=== PATIENT | male | born 1985 | race Caucasian/White ===

== ENCOUNTER 2017-06-17 14:18 | Emergency (ER) | payer OTHER ==
[2017-06-17] MEDS ORDERED: Lactated Ringers 1,000 ML IV ONE ×3 (14:53→16:04)
--- NOTE | 2017-06-17 14:59 | ERPHSYRPT ---
- History of Present Illness Time Seen by Provider: 06/17/17 14:23 Source: patient, EMS Patient Subjective Stated Complaint: STATES FELT SEIZURE COMING ON WHILE IN [facility] WAITING ROOM JUST PRIOR TO ARRIVAL. HX EPILEPSY Triage Nursing Assessment: TO ROOM PER EMS COT. SKIN W/D, COLOR NORMAL, RESP EASY. PATIENT AWAKE, ALERT, ORIENTED TIMES THREE. IS DROWSY. Physician History: CC: Seizure Hx: 31 y/o patient of Dr Calderon. He has hx of seizures but has been off meds for a year. He does not want to take seizure meds. He had last seizure one month ago. 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 He went to [facility] today to sign up for anger management classes. He had a seizure in the waiting room. No memoryof it. No injury. No headache, fever, neck or back pain. He has family to drive him home. He forgot about his appt with Dr Calderon this AM. Timing/Duration: today Severity: mild, moderate Baseline/Normal Cognition: alert oriented x 3 Current Cognition: alert oriented x 3 Allergies/Adverse Reactions: No Known Drug Allergies Allergy (Verified 06/17/17 18:01) Home Medications: No Reportable Medications [No Reported Medications] 06/17/17 [History] Hx Tetanus, Diphtheria Vaccination/Date Given: Yes Hx Influenza Vaccination/Date Given: No Hx Pneumococcal Vaccination/Date Given: No - Review of Systems Constitutional: No Fever, No Chills Eyes: No Vision Changes Ears, Nose, & Throat: No Symptoms Respiratory: No Symptoms Cardiac: No Chest Pain Abdominal/Gastrointestinal: No Abdominal Pain, No Nausea, No Vomiting Genitourinary Symptoms: No Symptoms Musculoskeletal: No Back Pain, No Neck Pain, No Injury Skin: No Rash Neurological: Seizure, No Dizziness, No Focal Weakness, No Headache, No Parasthesia Psychological: Drug Abuse (THC- must have been laced with meth), No Alcohol Abuse, No Depression, No Suicidal Ideations, No Hallucinations All Other Systems: Reviewed and Negative - Past Medical History Pertinent Past Medical History: Yes Neurological History: Seizures ENT History: No Pertinent History Cardiac History: No Pertinent History Respiratory History: No Pertinent History Endocrine Medical History: No Pertinent History Musculoskeletal History: Other GI Medical History: No Pertinent History History: No Pertinent History Psycho-Social History: Anxiety, Depression Male Reproductive Disorders: No Pertinent History Other Medical History: shattered left foot in 2009, broken wrist during childhood - Past Surgical History Past Surgical History: No Neuro Surgical History: No Pertinent History Cardiac: No Pertinent History Respiratory: No Pertinent History Gastrointestinal: No Pertinent History Genitourinary: No Pertinent History Musculoskeletal: No Pertinent History Male Surgical History: No Pertinent History - Social History Smoking Status: Current every day smoker How long have you smoked: 20 Exposure to second hand smoke: No Drug Use: none Patient Lives Alone: No Significant Family History: no pertinent family hx - Nursing Vital Signs Nursing Vital Signs: Initial Vital Signs Temperature 97.7 F 06/17/17 14:28 Pulse Rate 117 H 06/17/17 14:28 Respiratory Rate 18 06/17/17 14:28 Blood Pressure 110/70 06/17/17 14:28 O2 Sat by Pulse Oximetry 97 06/17/17 14:28 Pain Scale Pain Intensity 0 - [place] Coma Scale Best Eye Response ([place]): (4) open spontaneously Best Verbal Response ([place]): (5) oriented Best Motor Response ([place]): (6) obeys commands [place] Total: 15 - Physical Exam General Appearance: alert Eye Exam: bilateral eye: PERRL, EOMI Ears, Nose, Throat Exam: normal ENT inspection, moist mucous membranes Neck Exam: normal inspection, non-tender, supple, No meningismus, No midline tenderness Respiratory: normal breath sounds, lungs clear, No chest tenderness Cardiovascular: regular rate/rhythm Gastrointestinal: soft, No tenderness, No distention Male Genitalia: normal genitalia Back Exam: normal inspection, normal range of motion, No vertebral tenderness Extremity Exam: normal inspection, normal range of motion 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 - Course Nursing assessment & vital signs reviewed: Yes EKG Interpreted by Me: RATE ([id number]), Sinus Rhythm, NORMAL AXIS, NORMAL INTERVALS, NORMAL QRS, NORMAL ST-T - Radiology Exams cxr X-ray Interpretation: Teleradiologist Report, Negative Ordered Tests: Active Orders 24 hr Category Date Time Status Pbx Repairer STAT Care 06/17/17 15:39 Active Clean Catch Urine Specimen STAT Care 06/17/17 14:53 Active EKG-ER Only STAT Care 06/17/17 15:39 Active IV Insertion STAT Care 06/17/17 14:53 Active Pulse Oximetry (ED) STAT Care 06/17/17 15:39 Active Regular Diet Diet 06/17/17 Dinner Active CHEST 1 VIEW (PORTABLE) Stat Exams 06/17/17 15:39 Completed ACETAMINOPHEN Stat Lab 06/17/17 14:30 Completed CBC W DIFF Stat Lab 06/17/17 14:30 Completed CK-Creatinine Phosphokinase Stat Lab 06/17/17 14:30 Completed CMP Stat Lab 06/17/17 14:30 Completed CULTURE,URINE Stat Lab 06/17/17 15:30 Received ETHYL ALCOHOL Stat Lab 06/17/17 14:30 Completed Lactic Acid Stat Lab 06/17/17 15:30 Completed Lactic Acid Stat Lab 06/17/17 17:52 Ordered PROTIME WITH INR Stat Lab 06/17/17 14:30 Completed SALICYLATE Stat Lab 06/17/17 14:30 Completed UA W/ MICROSCOPIC Stat Lab 06/17/17 15:30 Completed Urine Triage Profile Stat Lab 06/17/17 15:30 Completed VENOUS BLOOD GAS Stat Lab 06/17/17 16:50 Completed VENOUS BLOOD GAS Urgent Lab 06/17/17 15:33 Completed Medication Summary Generic Name Dose Route Start Last Admin Trade Name Freq PRN Reason Stop Dose Admin Lactated Ringer's 1,000 mls @ 500 mls/hr 06/17/17 16:30 06/17/17 16:06 Lactated Ringers IV 07/17/17 16:29 500 mls/hr .Q2H NOHEMI Administration Discontinued Medications Generic Name Dose Route Start Last Admin Trade Name Freq PRN Reason Stop Dose Admin Lactated Ringer's 1,000 mls @ 999 mls/hr 06/17/17 14:53 06/17/17 15:10 Lactated Ringers IV 06/17/17 15:53 999 mls/hr .Q1H1M ONE Administration Lactated Ringer's Confirm 06/17/17 15:01 Lactated Ringers Administered 06/17/17 15:02 Dose 1,000 mls @ ud IV .STK-MED ONE Sodium Chloride 1,000 mls @ 999 mls/hr 06/17/17 15:39 06/17/17 15:53 Sodium Chloride 0.9% 1000 Ml IV 06/17/17 16:39 999 mls/hr .Q1H1M STA Administration Sodium Chloride Confirm 06/17/17 15:50 Sodium Chloride 0.9% 1000 Ml Administered 06/17/17 15:51 Dose 1,000 mls @ ud .ROUTE .STK-MED ONE Lab/Rad Data: Laboratory Result Diagrams 06/17/17 14:30 06/17/17 14:30 Laboratory Results 06/17/17 06/17/17 06/17/17 Range/Units 16:50 15:33 15:30 WBC (4.0-10.5) K/mm3 RBC (4.1-5.6) M/mm3 Hgb (12.5-18.0) gm/dl Hct (42-50) % MCV (78-100) fl MCH (26-32) pg MCHC (32-36) g/dl RDW (11.5-14.0) % Plt Count (150-450) K/mm3 MPV (6-9.5) fl Gran % (36.0-66.0) % Lymphocytes % (24.0-44.0) % Monocytes % (0.0-12.0) % Eosinophils % (0.00-5.0) % Basophils % (0.0-0.4) % Basophils # (0-0.4) INR (0.8-3.0) VBG pH 7.38 7.08 L* (7.32-7.42) VBG pCO2 at Pat Temp 39 L 41 L (42-55) mm/Hg VBG pO2 at Pat Temp 100 H 76 H (25-40) mm/Hg VBG HCO3 23.1 12.2 L* (22-28) meq/L VBG O2 Sat (Estefani) 98.4 94.0 L (95-100) VBG Base Excess -1.8 -17.4 L (-2.0-2.0) VBG Hemoglobin 13.8 16.2 VBG Carboxyhemoglobin 3.9 5.4 (0.0-6.9) % T HGB POC Potassium 3.6 4.4 (3.5-5.1) Sodium (136-145) mEq/L Potassium (3.5-5.1) mEq/L Chloride (98-107) mEq/L Carbon Dioxide (21-32) mEq/L Anion Gap (5-15) MEQ/L BUN (9-20) mg/dL Creatinine (0.55-1.30) mg/dl Estimated GFR ML/MIN Glucose (70-110) MG/DL Lactic Acid 15.8 H (0.4-2.0) Calcium (8.5-10.1) mg/dL Total Bilirubin (0.2-1.0) mg/dL AST (15-37) U/L ALT (12-78) U/L Alkaline Phosphatase (46-116) U/L Creatine Kinase (39-308) U/L Serum Total Protein (6.4-8.2) gm/dL Albumin (3.4-5.0) g/dL Ur Collection Type Urine Color (YELLOW) Urine Appearance (CLEAR) Urine pH (5-6) Ur Specific [place] (1.005-1.025) Urine Protein (Negative) Urine Ketones (NEGATIVE) Urine Blood (0-5) Branden/ul Urine Nitrite (NEGATIVE) Urine Bilirubin (NEGATIVE) Urine Urobilinogen (0-1) mg/dL Ur Leukocyte Esterase (NEGATIVE) Urine Microscopic RBC (0-2) /HPF Urine Microscopic WBC (0-5) /HPF Ur Epithelial Cells (FEW) /HPF Urine Bacteria (NEGATIVE) /HPF Hyaline Casts (0-2) /LPF Urine Culture Reflexed (NO) Urine Glucose (NEGATIVE) mg/dL Salicylates (2.8-20.0) mg/dl Urine Opiates Level (NEGATIVE) Ur Methadone (NEGATIVE) Acetaminophen (10-30) ug/ml Urine Barbiturates (NEGATIVE) Ur Phencyclidine (PCP) (NEGATIVE) Urine Amphetamine (NEGATIVE) U Benzodiazepine Level (NEGATIVE) Urine Cocaine (NEGATIVE) Urine Marijuana (THC) (NEGATIVE) Ethyl Alcohol (0.00-0.01) % Specimen Received 06/17/17 06/17/17 06/17/17 Range/Units 15:30 15:30 14:30 WBC (4.0-10.5) K/mm3 RBC (4.1-5.6) M/mm3 Hgb (12.5-18.0) gm/dl Hct (42-50) % MCV (78-100) fl MCH (26-32) pg MCHC (32-36) g/dl RDW (11.5-14.0) % Plt Count (150-450) K/mm3 MPV (6-9.5) fl Gran % (36.0-66.0) % Lymphocytes % (24.0-44.0) % Monocytes % (0.0-12.0) % Eosinophils % (0.00-5.0) % Basophils % (0.0-0.4) % Basophils # (0-0.4) INR 1.12 (0.8-3.0) VBG pH (7.32-7.42) VBG pCO2 at Pat Temp (42-55) mm/Hg VBG pO2 at Pat Temp (25-40) mm/Hg VBG HCO3 (22-28) meq/L VBG O2 Sat (Estefani) (95-100) VBG Base Excess (-2.0-2.0) VBG Hemoglobin VBG Carboxyhemoglobin (0.0-6.9) % T HGB POC Potassium (3.5-5.1) Sodium (136-145) mEq/L Potassium (3.5-5.1) mEq/L Chloride (98-107) mEq/L Carbon Dioxide (21-32) mEq/L Anion Gap (5-15) MEQ/L BUN (9-20) mg/dL Creatinine (0.55-1.30) mg/dl Estimated GFR ML/MIN Glucose (70-110) MG/DL Lactic Acid (0.4-2.0) Calcium (8.5-10.1) mg/dL Total Bilirubin (0.2-1.0) mg/dL AST (15-37) U/L ALT (12-78) U/L Alkaline Phosphatase (46-116) U/L Creatine Kinase (39-308) U/L Serum Total Protein (6.4-8.2) gm/dL Albumin (3.4-5.0) g/dL Ur Collection Type CLEAN CATCH Urine Color YELLOW (YELLOW) Urine Appearance CLEAR (CLEAR) Urine pH 5.0 (5-6) Ur Specific [place] 1.020 (1.005-1.025) Urine Protein 30 (Negative) Urine Ketones TRACE (NEGATIVE) Urine Blood TRACE NON-HEM (0-5) Branden/ul Urine Nitrite NEGATIVE (NEGATIVE) Urine Bilirubin NEGATIVE (NEGATIVE) Urine Urobilinogen NORMAL (0-1) mg/dL Ur Leukocyte Esterase NEGATIVE (NEGATIVE) Urine Microscopic RBC 2-5 (0-2) /HPF Urine Microscopic WBC 0-2 (0-5) /HPF Ur Epithelial Cells RARE (FEW) /HPF Urine Bacteria RARE (NEGATIVE) /HPF Hyaline Casts 2-5 (0-2) /LPF Urine Culture Reflexed YES (NO) Urine Glucose NEGATIVE (NEGATIVE) mg/dL Salicylates (2.8-20.0) mg/dl Urine Opiates Level NEG. (NEGATIVE) Ur Methadone NEG. (NEGATIVE) Acetaminophen (10-30) ug/ml Urine Barbiturates NEG. (NEGATIVE) Ur Phencyclidine (PCP) NEG. (NEGATIVE) Urine Amphetamine POS. (NEGATIVE) U Benzodiazepine Level NEG. (NEGATIVE) Urine Cocaine NEG. (NEGATIVE) Urine Marijuana (THC) POS. (NEGATIVE) Ethyl Alcohol (0.00-0.01) % Specimen Received [id number] 06/17/17 06/17/17 06/17/17 Range/Units 14:30 14:30 14:30 WBC (4.0-10.5) K/mm3 RBC (4.1-5.6) M/mm3 Hgb (12.5-18.0) gm/dl Hct (42-50) % MCV (78-100) fl MCH (26-32) pg MCHC (32-36) g/dl RDW (11.5-14.0) % Plt Count (150-450) K/mm3 MPV (6-9.5) fl Gran % (36.0-66.0) % Lymphocytes % (24.0-44.0) % Monocytes % (0.0-12.0) % Eosinophils % (0.00-5.0) % Basophils % (0.0-0.4) % Basophils # (0-0.4) INR (0.8-3.0) VBG pH (7.32-7.42) VBG pCO2 at Pat Temp (42-55) mm/Hg VBG pO2 at Pat Temp (25-40) mm/Hg VBG HCO3 (22-28) meq/L VBG O2 Sat (Estefani) (95-100) VBG Base Excess (-2.0-2.0) VBG Hemoglobin VBG Carboxyhemoglobin (0.0-6.9) % T HGB POC Potassium (3.5-5.1) Sodium 138 (136-145) mEq/L Potassium 3.8 (3.5-5.1) mEq/L Chloride 99 (98-107) mEq/L Carbon Dioxide 12.9 L* (21-32) mEq/L Anion Gap 29.6 H (5-15) MEQ/L BUN 8 L (9-20) mg/dL Creatinine 1.40 H (0.55-1.30) mg/dl Estimated GFR > 60 ML/MIN Glucose 116 H (70-110) MG/DL Lactic Acid (0.4-2.0) Calcium 9.3 (8.5-10.1) mg/dL Total Bilirubin 0.60 (0.2-1.0) mg/dL AST 31 (15-37) U/L ALT 28 (12-78) U/L Alkaline Phosphatase 115 (46-116) U/L Creatine Kinase 314 H (39-308) U/L Serum Total Protein 8.4 H (6.4-8.2) gm/dL Albumin 4.5 (3.4-5.0) g/dL Ur Collection Type Urine Color (YELLOW) Urine Appearance (CLEAR) Urine pH (5-6) Ur Specific [place] (1.005-1.025) Urine Protein (Negative) Urine Ketones (NEGATIVE) Urine Blood (0-5) Branden/ul Urine Nitrite (NEGATIVE) Urine Bilirubin (NEGATIVE) Urine Urobilinogen (0-1) mg/dL Ur Leukocyte Esterase (NEGATIVE) Urine Microscopic RBC (0-2) /HPF Urine Microscopic WBC (0-5) /HPF Ur Epithelial Cells (FEW) /HPF Urine Bacteria (NEGATIVE) /HPF Hyaline Casts (0-2) /LPF Urine Culture Reflexed (NO) Urine Glucose (NEGATIVE) mg/dL Salicylates 3.1 (2.8-20.0) mg/dl Urine Opiates Level (NEGATIVE) Ur Methadone (NEGATIVE) Acetaminophen < 2.0 L (10-30) ug/ml Urine Barbiturates (NEGATIVE) Ur Phencyclidine (PCP) (NEGATIVE) Urine Amphetamine (NEGATIVE) U Benzodiazepine Level (NEGATIVE) Urine Cocaine (NEGATIVE) Urine Marijuana (THC) (NEGATIVE) Ethyl Alcohol < 0.010 (0.00-0.01) % Specimen Received 06/17/17 Range/Units 14:30 WBC 12.6 H (4.0-10.5) K/mm3 RBC 5.22 (4.1-5.6) M/mm3 Hgb 15.1 (12.5-18.0) gm/dl Hct 47.1 (42-50) % MCV 90.2 (78-100) fl MCH 28.9 (26-32) pg MCHC 32.1 (32-36) g/dl RDW 13.0 (11.5-14.0) % Plt Count 238 (150-450) K/mm3 MPV 12.6 H (6-9.5) fl Gran % 55.1 (36.0-66.0) % Lymphocytes % 28.9 (24.0-44.0) % Monocytes % 9.5 (0.0-12.0) % Eosinophils % 6.0 H (0.00-5.0) % Basophils % 0.5 (0.0-0.4) % Basophils # 0.06 (0-0.4) INR (0.8-3.0) VBG pH (7.32-7.42) VBG pCO2 at Pat Temp (42-55) mm/Hg VBG pO2 at Pat Temp (25-40) mm/Hg VBG HCO3 (22-28) meq/L VBG O2 Sat (Estefani) (95-100) VBG Base Excess (-2.0-2.0) VBG Hemoglobin VBG Carboxyhemoglobin (0.0-6.9) % T HGB POC Potassium (3.5-5.1) Sodium (136-145) mEq/L Potassium (3.5-5.1) mEq/L Chloride (98-107) mEq/L Carbon Dioxide (21-32) mEq/L Anion Gap (5-15) MEQ/L BUN (9-20) mg/dL Creatinine (0.55-1.30) mg/dl Estimated GFR ML/MIN Glucose (70-110) MG/DL Lactic Acid (0.4-2.0) Calcium (8.5-10.1) mg/dL Total Bilirubin (0.2-1.0) mg/dL AST (15-37) U/L ALT (12-78) U/L Alkaline Phosphatase (46-116) U/L Creatine Kinase (39-308) U/L Serum Total Protein (6.4-8.2) gm/dL Albumin (3.4-5.0) g/dL Ur Collection Type Urine Color (YELLOW) Urine Appearance (CLEAR) Urine pH (5-6) Ur Specific [place] (1.005-1.025) Urine Protein (Negative) Urine Ketones (NEGATIVE) Urine Blood (0-5) Branden/ul Urine Nitrite (NEGATIVE) Urine Bilirubin (NEGATIVE) Urine Urobilinogen (0-1) mg/dL Ur Leukocyte Esterase (NEGATIVE) Urine Microscopic RBC (0-2) /HPF Urine Microscopic WBC (0-5) /HPF Ur Epithelial Cells (FEW) /HPF Urine Bacteria (NEGATIVE) /HPF Hyaline Casts (0-2) /LPF Urine Culture Reflexed (NO) Urine Glucose (NEGATIVE) mg/dL Salicylates (2.8-20.0) mg/dl Urine Opiates Level (NEGATIVE) Ur Methadone (NEGATIVE) Acetaminophen (10-30) ug/ml Urine Barbiturates (NEGATIVE) Ur Phencyclidine (PCP) (NEGATIVE) Urine Amphetamine (NEGATIVE) U Benzodiazepine Level (NEGATIVE) Urine Cocaine (NEGATIVE) Urine Marijuana (THC) (NEGATIVE) Ethyl Alcohol (0.00-0.01) % Specimen Received - Progress Progress Note: 06/17/17 18:13 He takes no meds. Neurologically normal and has appeared well since here. No longer tachycardic. Has cleared acidosis. He does not want to have Rx for seizure meds. He will follow up with Dr Calderon. Mother here. Instr given. He ate a meal. Counseled pt/family regarding: lab results, diagnosis, need for follow-up - Departure Time of Disposition: 18:14 Departure Disposition: Home Clinical Impression: Seizure, Lactic acidosis, Polysubstance abuse Condition: Fair Critical Care Time: No Referrals: ZAHEER CALDERON [Primary Care Provider] - Instructions: Seizure Disorder -- Adult Additional Instructions: No driving, climbing to heights, swimming. Stay with family. Return for problems or concerns. Avoid drug use. Follow up this week with [facility] and Dr Calderon.
[2017-06-17 15:05] LABS: BASOPHIL % 0.5 % (0.0-0.4); Basophil (Absolute #) 0.06 (0-0.4); Eosinophil (Absolute #) 0.76 (0-0.5); Granulocyte Absolute (ANC) 6.93 (1.4-6.9); Granulocytes % 55.1 % (36.0-66.0); Hematocrit 47.1 % (42-50); Hemoglobin 15.1 gm/dl (12.5-18.0); Lymphocyte (Absolute #) 3.63 (1.0-4.6); Lymphocytes % 28.9 % (24.0-44.0); Mean Cell Volume 90.2 fl (78-100); Mean Corpuscular Hemoglobin 28.9 pg (26-32); Mean Corpuscular Hgb Concent. 32.1 g/dl (32-36); Mean Platelet Volume 12.6 fl (6-9.5); Monocytes % 9.5 % (0.0-12.0); Platelet Count 238 K/mm3 (150-450); Red Blood Count 5.22 M/mm3 (4.1-5.6); White Blood Count 12.6 K/mm3 (4.0-10.5)
[2017-06-17 15:19] LABS: ALBUMIN 4.5 g/dL (3.4-5.0); ALKALINE PHOSPHATASE 115 U/L (46-116); ANION GAP 29.6 MEQ/L (5-15); BLOOD UREA NITROGEN 8 mg/dL (9-20); CHLORIDE 99 mEq/L (98-107); Calcium 9.3 mg/dL (8.5-10.1); EST GLOMERULAR FILTRATION RATE > 60 ML/MIN; Glucose 116 MG/DL (70-110); Potassium 3.8 mEq/L (3.5-5.1); SGOT/AST 31 U/L (15-37); SGPT/ALT 28 U/L (12-78); SODIUM 138 mEq/L (136-145); Total Protein 8.4 gm/dL (6.4-8.2)
[2017-06-17 15:24] LABS: Carbon Dioxide 12.9 mEq/L (21-32)
[2017-06-17 15:36] LABS: VBG BASE EXCESS -17.4 (-2.0-2.0); VBG CARBOXYHEMOGLOBIN 5.4 % T HGB (0.0-6.9); VBG HCO3- 12.2 meq/L (22-28); VBG HEMOGLOBIN 16.2; VBG POTASSIUM 4.4 (3.5-5.1)
[2017-06-17 15:37] LABS: VBG pH 7.08 (7.32-7.42)
[2017-06-17] MEDS ORDERED: Sodium Chloride 0.9% 1000 ML 1,000 ML IV STA (15:39)
[2017-06-17 15:45] LABS: INR 1.12 (0.8-3.0)
[2017-06-17] MEDS ORDERED: Sodium Chloride 0.9% 1000 ML 1,000 ML ONE (15:50)
[2017-06-17 15:53] LABS: ETHYL ALCOHOL < 0.010 % (0.00-0.01)
[2017-06-17 15:53] LABS: Lactic Acid 15.8 (0.4-2.0)
[2017-06-17 15:55] LABS: SALICYLATE 3.1 mg/dl (2.8-20.0)
[2017-06-17 15:57] LABS: ACETAMINOPHEN < 2.0 ug/ml (10-30)
[2017-06-17 16:05] LABS: Amphetamine,Urine POS. (NEGATIVE); Barbiturate,Urine NEG. (NEGATIVE); Benzodiazepine,Urine NEG. (NEGATIVE); Cocaine,Urine NEG. (NEGATIVE); Methadone,Urine NEG. (NEGATIVE); Opiate,Urine NEG. (NEGATIVE); PCP,Urine NEG. (NEGATIVE); THC,Urine POS. (NEGATIVE)
[2017-06-17] MEDS ORDERED: Lactated Ringers 1,000 ML IV SCH (16:30)
--- NOTE | 2017-06-17 16:37 | XRAY ---
Indication: Seizure. Comparison: December 15, 2012. Portable chest again demonstrates normal heart, lungs, and bony thorax.
[2017-06-17 17:03] LABS: VBG BASE EXCESS -1.8 (-2.0-2.0); VBG CARBOXYHEMOGLOBIN 3.9 % T HGB (0.0-6.9); VBG HCO3- 23.1 meq/L (22-28); VBG HEMOGLOBIN 13.8; VBG O2 SATURATION 98.4 (95-100); VBG POTASSIUM 3.6 (3.5-5.1); VBG pH 7.38 (7.32-7.42)
[2017-06-17 18:01] LABS: Appearance CLEAR (CLEAR); Leukocyte Esterase NEGATIVE (NEGATIVE); Nitrite NEGATIVE (NEGATIVE)
[2017-06-17 18:02] LABS: Bilirubin NEGATIVE (NEGATIVE); Glucose NEGATIVE (NEGATIVE); Ketones TRACE (NEGATIVE); Protein,Urine Dip 30 (Negative); Urobilinogen NORMAL mg/dL (0-1)
[2017-06-17 18:03] LABS: Blood TRACE NON-HEM Ery/ul (0-5); WBC 0-2 /HPF (0-5)
[2017-06-17 18:04] LABS: Bacteria RARE /HPF (NEGATIVE); Epithelial Cells RARE /HPF (FEW)
[2017-06-17 18:15] VITALS: BP 119/74; PULSE 77
[2017-06-17 18:16] VITALS: O2SAT 97
== END 2017-06-17 18:29 | disposition home or self-care (01) ==
LOC: ED 14:18
DX: R56.9 Unspecified convulsions (principal); E87.2 Acidosis; F19.10 Other psychoactive substance abuse, uncomplicated
CPT/HCPCS: 36000; 36415; 71045; 80053; 80307; 81000; 82550; 82805; 83605; 85025; 85610; 87086; 93005; 93041; 96360; 96361; 99284; 99285; G0481

== ENCOUNTER 2017-12-12 08:27 | Emergency (ER) | payer OTHER ==
[2017-12-12] MEDS ORDERED: Rocephin 1000 MG INJ IM ONE (08:41)
[2017-12-12] MEDS ORDERED: TORAdol 30 mg Injection IM ONE (08:42)
[2017-12-12] MEDS ORDERED: TORAdol 30 mg Injection ONE (08:45)
[2017-12-12] MEDS ORDERED: Rocephin 1000 MG INJ ONE (08:45)
--- NOTE | 2017-12-12 08:48 | ERPHSYRPT ---
- History of Present Illness Time Seen by Provider: 12/12/17 08:38 Source: patient Exam Limitations: no limitations Patient Subjective Stated Complaint: Pt states "I have some infection in my mouth, my face hurts on the right side." Triage Nursing Assessment: Pt alert and oriented X 3, skin pwd. PT ambulates with an upright steady gait, able to speak in clear full sentences. PT has dental carries noted to upper right side of mouth. Physician History: 32-year-old white male arrives with complaint of pain in the right maxillary area 2 days he states he feels like he is swollen in the right maxillary area. States he has pain in his teeth in the right maxillary area, symptoms for 2 days. Past medical history includes seizures, anxiety, depression, left foot injury, fractured wrist Past surgical history negative Social history positive tobacco use. Timing/Duration: day(s) (2 days) Modifying Factors: Improves With: nothing Associated Symptoms: other (pain right maxillary area), No nausea, No vomiting, No abdominal pain, No shortness of breath, No heartburn, No diaphoresis, No cough, No chills, No chest pain, No fever, No headaches, No loss of appetite, No malaise, No rash, No syncope, No seizure, No weakness Allergies/Adverse Reactions: No Known Drug Allergies Allergy (Verified 06/17/17 18:01) Hx Tetanus, Diphtheria Vaccination/Date Given: Yes Hx Influenza Vaccination/Date Given: Yes Hx Pneumococcal Vaccination/Date Given: No Immunizations Up to Date: Yes - Review of Systems Constitutional: No Fever, No Chills Eyes: No Symptoms Ears, Nose, & Throat: Mouth Pain, Mouth Swelling, Other (dental pain right maxillary area), No Ear Pain, No Ear Discharge, No Hearing Changes, No Tinnitus , No Nose Pain, No Nose Congestion, No Nose Discharge, No Sinus Drainage, No Epistaxis, No Loose Teeth, No Throat Pain, No Throat Swelling, No Hoarse, No Painful Swallowing, No Snoring, No Stridor Respiratory: No Cough, No Dyspnea Cardiac: No Chest Pain, No Edema, No Syncope Abdominal/Gastrointestinal: No Abdominal Pain, No Nausea, No Vomiting, No Diarrhea Genitourinary Symptoms: No Dysuria Musculoskeletal: No Back Pain, No Neck Pain Skin: No Rash Neurological: No Dizziness, No Focal Weakness, No Sensory Changes Psychological: No Symptoms Endocrine: No Symptoms All Other Systems: Reviewed and Negative - Past Medical History Pertinent Past Medical History: Yes Neurological History: Seizures ENT History: No Pertinent History Cardiac History: No Pertinent History Respiratory History: No Pertinent History Endocrine Medical History: No Pertinent History Musculoskeletal History: Other GI Medical History: No Pertinent History History: No Pertinent History Psycho-Social History: Anxiety, Depression Male Reproductive Disorders: No Pertinent History Other Medical History: shattered left foot in 2010, broken wrist during childhood - Past Surgical History Past Surgical History: No Neuro Surgical History: No Pertinent History Cardiac: No Pertinent History Respiratory: No Pertinent History Gastrointestinal: No Pertinent History Genitourinary: No Pertinent History Musculoskeletal: No Pertinent History Male Surgical History: No Pertinent History - Social History Smoking Status: Current every day smoker How long have you smoked: years Exposure to second hand smoke: Yes Drug Use: none Patient Lives Alone: No Significant Family History: no pertinent family hx - Nursing Vital Signs Nursing Vital Signs: Initial Vital Signs Temperature 97.5 F 12/12/17 08:31 Pulse Rate 72 12/12/17 08:31 Respiratory Rate 16 12/12/17 08:31 Blood Pressure 123/79 12/12/17 08:31 O2 Sat by Pulse Oximetry 100 12/12/17 08:31 Pain Scale Pain Intensity 8 - Physical Exam General Appearance: mild distress Eye Exam: PERRL/EOMI, eyes nml inspection Ears, Nose, Throat Exam: TMs normal, pharynx normal, moist mucous membranes, other (poor dentition, mild swelling right maxillary area, tender with palpation ) Neck Exam: normal inspection, non-tender, supple, full range of motion Respiratory Exam: normal breath sounds Cardiovascular Exam: regular rate/rhythm, normal heart sounds, normal peripheral pulses Gastrointestinal/Abdomen Exam: soft, normal bowel sounds, No tenderness, No mass Back Exam: normal inspection, normal range of motion, No CVA tenderness, No vertebral tenderness Extremity Exam: normal inspection Neurologic Exam: alert, oriented x 3, 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, 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, normal mood/affect, nml cerebellar function, nml station & gait, sensation nml, No motor deficits Skin Exam: normal color, warm, dry, No rash Lymphatic Exam: No adenopathy SpO2 Interpretation: normal (100) SpO2: 100 Oxygen Delivery: Room Air - Course Nursing assessment & vital signs reviewed: Yes Ordered Tests: Medication Summary Discontinued Medications Generic Name Dose Route Start Last Admin Trade Name Shelia PRN Reason Stop Dose Admin Ceftriaxone Sodium 1,000 mg 12/12/17 08:41 12/12/17 08:49 Rocephin 1000 Mg Inj IM 12/12/17 08:42 1,000 mg STAT ONE Administration Ceftriaxone Sodium Confirm 12/12/17 08:45 Rocephin 1000 Mg Inj Administered 12/12/17 08:46 Dose 1,000 mg .ROUTE .STK-MED ONE Ketorolac Tromethamine 60 mg 12/12/17 08:42 12/12/17 08:49 Toradol 30 Mg Injection IM 12/12/17 08:43 60 mg STAT ONE Administration Ketorolac Tromethamine Confirm 12/12/17 08:45 Toradol 30 Mg Injection Administered 12/12/17 08:46 Dose 60 mg .ROUTE .STK-MED ONE - Progress Progress: improved Progress Note: 12/12/17 08:46 This is a 32-year-old white male he arrives with complaint of pain in the right maxillary area mild edema to the right maxillary area symptoms 2 days patient with poor dentition Mild edema in the right maxillary area tender with palpation right maxillary area. Will go ahead and give the patient Rocephin 1 g IM, Toradol 60 mg IM, plan home amoxicillin 500 mg 3 times a day for 10 days. Patient to take Tylenol every 4 hours or Motrin every 6 hours as needed for pain. Follow-up with his dentist. - Departure Time of Disposition: 08:47 Departure Disposition: Home Clinical Impression: Pain, dental, Dental abscess Condition: Fair Critical Care Time: No Referrals: ZAHEER CALDERON [Primary Care Provider] - Instructions: Tooth Abscess (DC), Dental Pain (DC) Additional Instructions: Return home. Cold packs to area 24-48 hours (external).. Avoid excessively hot or cold foods. Tylenol every 4 hours as needed for pain. Motrin every 6 hours as needed for pain. Follow-up with your dentist. Amoxicillin 500 mg 3 times a day for 10 days. Return for acute distress or for severe symptoms. Prescriptions: Amoxicillin 500 mg PO TID #30 capsule
[2017-12-12 08:51] VITALS: BP 124/79; PULSE 61; O2SAT 99
== END 2017-12-12 08:56 | disposition home or self-care (01) ==
LOC: ED 08:27
DX: K04.7 Periapical abscess without sinus (principal); K08.89 Other specified disorders of teeth and supporting structures
CPT/HCPCS: 96372; 99284; J0696; J1885

== ENCOUNTER 2017-12-30 08:40 | Emergency (ER) | payer OTHER ==
--- NOTE | 2017-12-30 08:56 | ERPHSYRPT ---
- History of Present Illness Time Seen by Provider: 12/30/17 08:50 Source: patient Exam Limitations: no limitations Physician History: The patient is a 32-year-old male complaining of accidentally tripping while carrying a refrigerator, dropping a refrigerator on his left great toe, and causing significant trauma to the left toe. This happened about 30 minutes ago. The toenail is partially avulsed. There is some mild bleeding. He denies numbness. He did not take any medicines for pain before coming in. His tetanus vaccination is recent. Method of Injury: direct blow Occurred: just prior to arrival Quality: sharpness, stabbing Severity of Pain-Max: moderate Severity of Pain-Current: moderate Lower Extremities Pain: 1st toe: left Modifying Factors: Improves With: nothing Associated Symptoms: none Allergies/Adverse Reactions: No Known Drug Allergies Allergy (Verified 12/30/17 08:54) Hx Tetanus, Diphtheria Vaccination/Date Given: Yes Hx Influenza Vaccination/Date Given: Yes Hx Pneumococcal Vaccination/Date Given: No - Review of Systems Constitutional: No Fever, No Chills Eyes: No Symptoms Ears, Nose, & Throat: No Symptoms Respiratory: No Cough, No Dyspnea Cardiac: No Symptoms ( infected toe with smack), No Chest Pain, No Edema, No Syncope Abdominal/Gastrointestinal: No Abdominal Pain, No Nausea, No Vomiting, No Diarrhea Genitourinary Symptoms: No Dysuria Musculoskeletal: Injury, No Back Pain, No Neck Pain Skin: No Symptoms, No Rash Neurological: No Dizziness, No Focal Weakness, No Sensory Changes Psychological: No Symptoms Endocrine: No Symptoms Hematologic/Lymphatic: No Symptoms Immunological/Allergic: No Symptoms All Other Systems: Reviewed and Negative - Past Medical History Pertinent Past Medical History: Yes Neurological History: Seizures ENT History: No Pertinent History Cardiac History: No Pertinent History Respiratory History: No Pertinent History Endocrine Medical History: No Pertinent History Musculoskeletal History: Other GI Medical History: No Pertinent History History: No Pertinent History Psycho-Social History: Anxiety, Depression Male Reproductive Disorders: No Pertinent History Other Medical History: shattered left foot in 2010, broken wrist during childhood - Past Surgical History Past Surgical History: No Neuro Surgical History: No Pertinent History Cardiac: No Pertinent History Respiratory: No Pertinent History Gastrointestinal: No Pertinent History Genitourinary: No Pertinent History Musculoskeletal: No Pertinent History Male Surgical History: No Pertinent History - Social History Smoking Status: Current every day smoker How long have you smoked: years Exposure to second hand smoke: Yes Drug Use: none Patient Lives Alone: No Significant Family History: no pertinent family hx - Nursing Vital Signs Nursing Vital Signs: Initial Vital Signs Temperature 97.0 F 12/30/17 08:45 Pulse Rate 69 12/30/17 08:45 Respiratory Rate 16 12/30/17 08:45 Blood Pressure 117/85 12/30/17 08:45 O2 Sat by Pulse Oximetry 100 12/30/17 08:45 Pain Scale Pain Intensity 10 - Physical Exam General Appearance: moderate distress, thin Eyes, Ears, Nose, Throat Exam: moist mucous membranes Neck Exam: non-tender, supple Cardiovascular/Respiratory Exam: chest non-tender, normal breath sounds, regular rate/rhythm, no respiratory distress Gastrointestinal/Abdominal Exam: non-tender, guarding Back Exam: normal inspection, No vertebral tenderness Hips Exam: bilateral: normal inspection Legs Exam: bilateral leg: normal inspection Knees Exam: bilateral knee: normal inspection Ankle Exam: bilateral ankle: normal inspection Foot Exam: left foot: nail injury (left great toe), pain, soft tissue tenderness , swelling Neuro/Tendon Exam: normal sensation, normal motor functions Mental Status Exam: alert, oriented x 3, cooperative Skin Exam: normal color, warm, dry SpO2 Interpretation: normal Oxygen Delivery: Room Air (days ago be broken or not) - Radiology Exams Left Foot X-ray Interpretation: Reviewed by me, Teleradiologist Report (per Dr Cabrera), Negative, No Fracture Ordered Tests: Active Orders 24 hr Category Date Time Status FOOT (MINIMUM 3 VIEWS) Stat Exams 12/30/17 08:54 Completed Medication Summary Discontinued Medications Generic Name Dose Route Start Last Admin Trade Name Shelia PRN Reason Stop Dose Admin Ketorolac Tromethamine 60 mg 12/30/17 08:54 12/30/17 09:12 Toradol 30 Mg Injection IM 12/30/17 08:55 60 mg STAT ONE Administration Ketorolac Tromethamine Confirm 12/30/17 09:04 Toradol 30 Mg Injection Administered 12/30/17 09:05 Dose 60 mg .ROUTE .STK-MED ONE Lidocaine HCl 10 ml 12/30/17 09:14 Xylocaine 1% Hcl 20 Ml Mdv IJ 12/30/17 09:15 STAT ONE Lidocaine HCl Confirm 12/30/17 09:18 Xylocaine 1% Hcl 20 Ml Mdv Administered 12/30/17 09:19 Dose 10 ml .ROUTE .STK-MED ONE - Progress Progress: improved Progress Note: 12/30/17 09:39 A digital block was performed on the left great toe with 10 mL of 1% lidocaine without epinephrine. The toenail was successfully removed without difficulty. Hemostasis was achieved. Toradol 60 mg IM. Counseled pt/family regarding: diagnosis, rad results - Departure Time of Disposition: :40 Departure Disposition: Home Clinical Impression: Injury of left great toe Condition: Stable Critical Care Time: No Referrals: ZAHEER CALDERON [Primary Care Provider] - Additional Instructions: You had a crush injury to your left great toe with avulsion of your toenail. You had no broken bones. The toenail was removed without difficulty in the ER. You were given Toradol 60 mg by IM in the ER. Take naproxen 500 mg twice a day if needed. Take Tylenol No. 3 one tablet every 4-6 hours as needed. Apply ice to the toe as needed. Follow-up with Dr. Granados in [place] at for further evaluation of your left ankle injury from several years ago. Prescriptions: Codeine Phosphate/APAP #3 [Tylenol #3 Tablet] 1 tab PO Q4-6HPRN PRN #6 tablet PRN Reason: Pain Naproxen 500 mg PO BID PRN #30 tablet.
[2017-12-30] MEDS ORDERED: TORAdol 30 mg Injection ONE (09:04)
[2017-12-30] MEDS: TORAdol 30 mg Injection IM ONE (09:12)
[2017-12-30] MEDS ORDERED: XYLOCAINE 1% HCL 20 ML MDV ONE (09:18)
--- NOTE | 2017-12-30 09:20 | XRAY ---
Indication: Great toe injury. Comparison: None 3 portable nonweightbearing views of the left foot demonstrates great toe soft tissue swelling. No other bony, articular, or soft tissue abnormalities.
[2017-12-30] MEDS: XYLOCAINE 1% HCL 20 ML MDV IJ ONE (09:56)
[2017-12-30 10:04] VITALS: BP 100/56; PULSE 78; O2SAT 98
== END 2017-12-30 10:05 | disposition home or self-care (01) ==
LOC: ED 08:40
DX: S97.112A Crushing injury of left great toe, initial encounter (principal); W23.0XXA Caught, crushed, jammed, or pinched between moving objects, initial encounter; F41.8 Other specified anxiety disorders; G40.909 Epilepsy, unspecified, not intractable, without status epilepticus; Z72.0 Tobacco use
CPT/HCPCS: 11730; 73630; 96372; 99284; J1885

== ENCOUNTER 2018-01-07 12:57 | Observation (INO) | payer OTHER ==
[2018-01-07] MEDS ORDERED: Sodium Chloride 0.9% 1000 ML 1,000 ML IV STA (13:09)
--- NOTE | 2018-01-07 13:15 | ERPHSYRPT ---
- History of Present Illness Time Seen by Provider: 01/07/18 13:11 Source: patient Exam Limitations: no limitations Physician History: 32-year-old white male arrives with complaint that he was found laying in the mud puddle outside of someone's house is just prior to arrival. Patient states she was just walking home from work. He denies any injuries denies feeling dizzy or remembering passing out. He has no complaints. Past medical history includes seizures, anxiety, depression. Fracture left foot also history of fracture wrist as a child. Past surgical history includes negative Timing/Duration: today Severity: moderate Modifying Factors: Improves With: nothing Associated Symptoms: syncope, No nausea, No vomiting, No abdominal pain, No shortness of breath, No heartburn, No diaphoresis, No cough, No chills, No chest pain, No fever, No headaches, No loss of appetite, No malaise, No rash, No seizure, No weakness Allergies/Adverse Reactions: No Known Drug Allergies Allergy (Verified 01/07/18 14:00) Home Medications: No Reportable Medications [No Reported Medications] 01/07/18 [History] Hx Tetanus, Diphtheria Vaccination/Date Given: Yes Hx Influenza Vaccination/Date Given: Yes Hx Pneumococcal Vaccination/Date Given: No - Review of Systems Constitutional: No Fever, No Chills Eyes: No Symptoms Ears, Nose, & Throat: No Symptoms Respiratory: No Cough, No Dyspnea Cardiac: Syncope, No Chest Pain, No Edema Abdominal/Gastrointestinal: No Abdominal Pain, No Nausea, No Vomiting, No Diarrhea Genitourinary Symptoms: No Dysuria Musculoskeletal: No Back Pain, No Neck Pain Skin: No Rash Neurological: No Dizziness, No Focal Weakness, No Gait Changes, No Headache, No Irritability, No Lethargy, No Paralysis, No Parasthesia, No Seizure, No Sensory Changes, No Speech Changes, No Tics, No Tremors, No Vertigo Psychological: No Symptoms Endocrine: No Symptoms All Other Systems: Reviewed and Negative - Past Medical History Pertinent Past Medical History: Yes Neurological History: Seizures ENT History: No Pertinent History Cardiac History: No Pertinent History Respiratory History: No Pertinent History Endocrine Medical History: No Pertinent History Musculoskeletal History: Other GI Medical History: No Pertinent History History: No Pertinent History Psycho-Social History: Anxiety, Depression Male Reproductive Disorders: No Pertinent History Other Medical History: shattered left foot in 2010, broken wrist during childhood - Past Surgical History Past Surgical History: No Neuro Surgical History: No Pertinent History Cardiac: No Pertinent History Respiratory: No Pertinent History Gastrointestinal: No Pertinent History Genitourinary: No Pertinent History Musculoskeletal: No Pertinent History Male Surgical History: No Pertinent History - Social History Smoking Status: Current every day smoker How long have you smoked: years Exposure to second hand smoke: Yes Drug Use: none Patient Lives Alone: No Significant Family History: no pertinent family hx - Nursing Vital Signs Nursing Vital Signs: Initial Vital Signs Temperature 97.6 F 01/07/18 12:59 Pulse Rate 115 H 01/07/18 12:59 Respiratory Rate 16 01/07/18 12:59 Blood Pressure 107/63 01/07/18 12:59 O2 Sat by Pulse Oximetry 99 01/07/18 12:59 Pain Scale Pain Intensity 0 - Physical Exam General Appearance: no apparent distress, alert Eye Exam: PERRL/EOMI, eyes nml inspection Ears, Nose, Throat Exam: normal ENT inspection, TMs normal, pharynx normal, moist mucous membranes Neck Exam: normal inspection, non-tender, supple, full range of motion Respiratory Exam: normal breath sounds, lungs clear, No respiratory distress Cardiovascular Exam: regular rate/rhythm, normal heart sounds, normal peripheral pulses Gastrointestinal/Abdomen Exam: soft, normal bowel sounds, No tenderness, No mass Back Exam: normal inspection, normal range of motion, No CVA tenderness, No vertebral tenderness Extremity Exam: normal inspection, normal range of motion, pelvis stable Neurologic Exam: alert, oriented x 3, cooperative, print support specialist II-XII nml as tested, normal mood/affect, nml cerebellar function, nml station & gait, sensation nml, No motor deficits Skin Exam: normal color, warm, dry, No rash SpO2 Interpretation: normal (99%) SpO2: 99 Oxygen Delivery: Room Air - Course Nursing assessment & vital signs reviewed: Yes EKG Interpreted by Me: RATE (108 bpm), Sinus Tach, NORMAL AXIS, Other (EKG sinus tachycardia with artifact. Normal axis. No acute ST or T wave changes noted.) - CT Exams Head CT Interpretation: Discussed w/radiologist (head CT: Impression: Motion and beam artifact. No gross intercranial abnormalities) Ordered Tests: Active Orders 24 hr Category Date Time Status Bedrest ROUTINE Activity 01/07/18 16:07 Active Accucheck STAT Care 01/07/18 13:09 Completed Code Status Order ROUTINE Care 01/07/18 16:07 Active EKG-ER Only STAT Care 01/07/18 13:09 Completed IV Care Q6H Care 01/07/18 16:07 Active IV Insertion STAT Care 01/07/18 13:09 Completed Neuro Checks Q4H Care 01/07/18 16:[address] in Observation ROUTINE Care 01/07/18 16:07 Active Pulse Oximetry (ED) STAT Care 01/07/18 13:09 Completed Clear Liquid Diet 01/07/18 Dinner Active HEAD WITHOUT CONTRAST [CT] Stat Exams 01/07/18 13:47 Completed CBC W DIFF AM.LAB Lab 01/08/18 04:00 Ordered CBC W DIFF Stat Lab 01/07/18 13:30 Completed CMP AM.LAB Lab 01/08/18 04:00 Ordered CMP Stat Lab 01/07/18 13:30 Completed CULTURE,URINE Stat Lab 01/07/18 13:33 Received ETHYL ALCOHOL Stat Lab 01/07/18 13:30 Completed Manual Differential NC Stat Lab 01/07/18 13:30 Completed UA W/ MICROSCOPIC Stat Lab 01/07/18 13:33 Completed Urine Triage Profile Stat Lab 01/07/18 13:33 Completed Pulse Oximetry CONTINUOUS RT 01/07/18 16:07 Active Transfer Order Routine Transfer 01/07/18 Completed Medication Summary Generic Name Dose Route Start Last Admin Trade Name Freq PRN Reason Stop Dose Admin Acetaminophen 650 mg 01/07/18 17:01 Tylenol 325 Mg PO 02/06/18 17:00 Q4H PRN PRN PAIN AND/OR FEVER Sodium Chloride 1,000 mls @ 100 mls/hr 01/07/18 16:07 Sodium Chloride 0.9% 1000 Ml IV 02/06/18 16:06 .Q10H NOHEMI Lorazepam 1 mg 01/07/18 16:07 Ativan 2 Mg/1 Ml Vial IV 02/06/18 16:06 PRN PRN SEIZURES Discontinued Medications Generic Name Dose Route Start Last Admin Trade Name Freq PRN Reason Stop Dose Admin Sodium Chloride 1,000 mls @ 999 mls/hr 01/07/18 13:09 01/07/18 14:36 Sodium Chloride 0.9% 1000 Ml IV 01/07/18 14:09 Infused .Q1H1M STA Infusion Sodium Chloride Confirm 07/31/18 13:29 Sodium Chloride 0.9% 1000 Ml Administered 01/07/18 13:30 Dose 1,000 mls @ ud .ROUTE .STK-MED ONE Fosphenytoin Sodium 1,000 mg/ 120 mls @ 120 mls/hr 01/07/18 15:15 01/07/18 15 :30 Sodium Chloride IV 01/07/18 16:14 120 mls/hr NOW ONE Administration Lorazepam 1 mg 01/07/18 13:46 01/07/18 13:55 Ativan 2 Mg/1 Ml Vial IV 01/07/18 13:47 1 mg STAT ONE Administration Lorazepam Confirm 01/07/18 13:46 Ativan 2 Mg/1 Ml Vial Administered 01/07/18 13:47 Dose 2 mg .ROUTE .STK-MED ONE Lab/Rad Data: Laboratory Result Diagrams 01/07/18 13:30 01/07/18 13:30 Laboratory Results 01/07/18 01/07/18 01/07/18 Range/Units 13:33 13:33 13:30 WBC (4.0-10.5) K/mm3 RBC (4.1-5.6) M/mm3 Hgb (12.5-18.0) gm/dl Hct (42-50) % MCV (78-100) fl MCH (26-32) pg MCHC (32-36) g/dl RDW (11.5-14.0) % Plt Count (150-450) K/mm3 MPV (6-9.5) fl Gran % (36.0-66.0) % Eos # (Auto) (0-0.5) Absolute Lymphs (auto) (1.0-4.6) Absolute Monos (auto) (0.0-1.3) Lymphocytes % (24.0-44.0) % Monocytes % (0.0-12.0) % Eosinophils % (0.00-5.0) % Basophils % (0.0-0.4) % Absolute Granulocytes (1.4-6.9) Segmented Neutrophils (36.-66.) % Band Neutrophils (0.0-2.0) % Lymphocytes (Manual) (24-44) % Monocytes (Manual) (0.0-12.0) % Eosinophils (Manual) (0.00-3.0) % Basophils # (0-0.4) Platelet Estimate (NORMAL) RBC Morphology Sodium 140 (137-145) mmol/L Potassium 4.9 (3.5-5.1) mmol/L Chloride 102 (98-107) mmol/L Carbon Dioxide 26 (22-30) mmol/L Anion Gap 16.9 H (5-15) MEQ/L BUN 11 (9-20) mg/dL Creatinine 1.10 (0.66-1.25) mg/dL Estimated GFR > 60.0 ML/MIN Glucose 122 H (74-106) mg/dL Calcium 10.0 (8.4-10.2) mg/dL Total Bilirubin 0.30 (0.2-1.3) mg/dL AST 42 (17-59) U/L ALT 50 (0-50) U/L Alkaline Phosphatase 99 (38-126) U/L Serum Total Protein 7.9 (6.3-8.2) g/dL Albumin 4.9 (3.5-5.0) g/dL Ur Collection Type VOID Urine Color YELLOW (YELLOW) Urine Appearance CLEAR (CLEAR) Urine pH 5.0 (5-6) Ur Specific [place] 1.025 (1.005-1.025) Urine Protein 100 (Negative) Urine Ketones SMALL (NEGATIVE) Urine Blood 250 (0-5) Branden/ul Urine Nitrite NEGATIVE (NEGATIVE) Urine Bilirubin NEGATIVE (NEGATIVE) Urine Urobilinogen NORMAL (0-1) mg/dL Ur Leukocyte Esterase NEGATIVE (NEGATIVE) Urine Microscopic RBC 2-5 (0-2) /HPF Urine Microscopic WBC 0-2 (0-5) /HPF Ur Epithelial Cells RARE (FEW) /HPF Urine Bacteria RARE (NEGATIVE) /HPF Hyaline Casts 0-2 (0-2) /LPF Urine Mucus SLIGHT (NEGATIVE) /HPF Urine Culture Reflexed YES (NO) Urine Glucose NEGATIVE (NEGATIVE) mg/dL Urine Opiates Level NEGATIVE (NEGATIVE) Ur Methadone NEGATIVE (NEGATIVE) Urine Barbiturates NEGATIVE (NEGATIVE) Ur Phencyclidine (PCP) NEGATIVE (NEGATIVE) Urine Amphetamine POSITIVE (NEGATIVE) U Benzodiazepine Level NEGATIVE (NEGATIVE) Urine Cocaine NEGATIVE (NEGATIVE) Urine Marijuana (THC) POSITIVE (NEGATIVE) Ethyl Alcohol < 10 (0-10) mg/dL Specimen Received 01/07/18 1330 01/07/18 Range/Units 13:30 WBC 9.7 (4.0-10.5) K/mm3 RBC 4.90 (4.1-5.6) M/mm3 Hgb 14.9 (12.5-18.0) gm/dl Hct 43.9 (42-50) % MCV 89.6 (78-100) fl MCH 30.4 (26-32) pg MCHC 33.9 (32-36) g/dl RDW 13.4 (11.5-14.0) % Plt Count 253 (150-450) K/mm3 MPV 11.7 H (6-9.5) fl Gran % 81.7 H (36.0-66.0) % Eos # (Auto) 0.13 (0-0.5) Absolute Lymphs (auto) 1.02 (1.0-4.6) Absolute Monos (auto) 0.60 (0.0-1.3) Lymphocytes % 10.5 L (24.0-44.0) % Monocytes % 6.2 (0.0-12.0) % Eosinophils % 1.3 (0.00-5.0) % Basophils % 0.3 (0.0-0.4) % Absolute Granulocytes 7.96 H (1.4-6.9) Segmented Neutrophils 81 H (36.-66.) % Band Neutrophils 2 (0.0-2.0) % Lymphocytes (Manual) 11 L (24-44) % Monocytes (Manual) 3 (0.0-12.0) % Eosinophils (Manual) 3 (0.00-3.0) % Basophils # 0.03 (0-0.4) Platelet Estimate NORMAL (NORMAL) RBC Morphology NORMAL Sodium (137-145) mmol/L Potassium (3.5-5.1) mmol/L Chloride (98-107) mmol/L Carbon Dioxide (22-30) mmol/L Anion Gap (5-15) MEQ/L BUN (9-20) mg/dL Creatinine (0.66-1.25) mg/dL Estimated GFR ML/MIN Glucose (74-106) mg/dL Calcium (8.4-10.2) mg/dL Total Bilirubin (0.2-1.3) mg/dL AST (17-59) U/L ALT (0-50) U/L Alkaline Phosphatase (38-126) U/L Serum Total Protein (6.3-8.2) g/dL Albumin (3.5-5.0) g/dL Ur Collection Type Urine Color (YELLOW) Urine Appearance (CLEAR) Urine pH (5-6) Ur Specific [place] (1.005-1.025) Urine Protein (Negative) Urine Ketones (NEGATIVE) Urine Blood (0-5) Branden/ul Urine Nitrite (NEGATIVE) Urine Bilirubin (NEGATIVE) Urine Urobilinogen (0-1) mg/dL Ur Leukocyte Esterase (NEGATIVE) Urine Microscopic RBC (0-2) /HPF Urine Microscopic WBC (0-5) /HPF Ur Epithelial Cells (FEW) /HPF Urine Bacteria (NEGATIVE) /HPF Hyaline Casts (0-2) /LPF Urine Mucus (NEGATIVE) /HPF Urine Culture Reflexed (NO) Urine Glucose (NEGATIVE) mg/dL Urine Opiates Level (NEGATIVE) Ur Methadone (NEGATIVE) Urine Barbiturates (NEGATIVE) Ur Phencyclidine (PCP) (NEGATIVE) Urine Amphetamine (NEGATIVE) U Benzodiazepine Level (NEGATIVE) Urine Cocaine (NEGATIVE) Urine Marijuana (THC) (NEGATIVE) Ethyl Alcohol (0-10) mg/dL Specimen Received - Progress Progress: improved Progress Note: 01/07/18 13:14 32-year-old white male brought by medics with complaint that he was found laying in the ditch. Patient really denies any complaints at this time cannot remember syncopal episode. Currently alert oriented 3 neurological exam within normal limits lungs heart regular full range of motion to all extremities senior medical technologist are equal 5 over 5 sensation intact to all extremities GCS is 15. Will go ahead and check EKG labs UA UDS Accu-Chek. Will give patient a liter of normal saline. 01/07/18 13:48 Notified by patient's nurse that patient is having a seizure. Patient with a body tensed up, head turned to the right. Patient given Ativan [address] is ordered in view of patient having probable initial seizure leading to syncope and second seizure here in the emergency room. 01/07/18 15:13 The patient's urine drug screen positive for amphetamines and marijuana. Patient apparently has not been on Dilantin for a year I've discussed the patient's case with Dr. kraus the patient's family physician. She would like the patient started on Dilantin I contacted pharmacy to ask the appropriate dose of cerebrex to begin this he will get 1 g of cerebrexIV. Will ask the nurses to obtain a bed for many place patient on seizure precautions provide IV normal saline. Dr. Kraus will write for continuing dosage of Dilantin. - Departure Time of Disposition: 15:15 Departure Disposition: Observation Clinical Impression: Seizure, Polysubstance abuse Syncope Qualifiers: Syncope type: unspecified Qualified Code(s): R55 - Syncope and collapse Condition: Fair Critical Care Time: No
[2018-01-07] MEDS ORDERED: Sodium Chloride 0.9% 1000 ML 1,000 ML ONE (13:29)
[2018-01-07 13:45] LABS: Appearance CLEAR (CLEAR); Bilirubin NEGATIVE (NEGATIVE); Blood 250 Ery/ul (0-5); Glucose NEGATIVE (NEGATIVE); Ketones SMALL (NEGATIVE); Leukocyte Esterase NEGATIVE (NEGATIVE); Nitrite NEGATIVE (NEGATIVE); Protein,Urine Dip 100 (Negative); Specific Gravity 1.025 (1.005-1.025); Urobilinogen NORMAL mg/dL (0-1)
[2018-01-07] MEDS ORDERED: Ativan 2 MG/1 ML VIAL ONE (13:46)
[2018-01-07] MEDS ORDERED: Ativan 2 MG/1 ML VIAL IV ONE (13:46)
[2018-01-07 13:55] LABS: BASOPHIL % 0.3 % (0.0-0.4); Basophil (Absolute #) 0.03 (0-0.4); Eosinophil % 1.3 % (0.00-5.0); Eosinophil (Absolute #) 0.13 (0-0.5); Granulocyte Absolute (ANC) 7.96 (1.4-6.9); Granulocytes % 81.7 % (36.0-66.0); Hematocrit 43.9 % (42-50); Hemoglobin 14.9 gm/dl (12.5-18.0); Lymphocyte (Absolute #) 1.02 (1.0-4.6); Lymphocytes % 10.5 % (24.0-44.0); Mean Cell Volume 89.6 fl (78-100); Mean Corpuscular Hemoglobin 30.4 pg (26-32); Mean Corpuscular Hgb Concent. 33.9 g/dl (32-36); Mean Platelet Volume 11.7 fl (6-9.5); Monocytes % 6.2 % (0.0-12.0); Platelet Count 253 K/mm3 (150-450); Red Cell Distribution Width 13.4 % (11.5-14.0); White Blood Count 9.7 K/mm3 (4.0-10.5)
[2018-01-07 13:58] LABS: Barbiturate,Urine NEGATIVE (NEGATIVE); Benzodiazepine,Urine NEGATIVE (NEGATIVE); Cocaine,Urine NEGATIVE (NEGATIVE); Methadone,Urine NEGATIVE (NEGATIVE); Opiate,Urine NEGATIVE (NEGATIVE); PCP,Urine NEGATIVE (NEGATIVE); THC,Urine POSITIVE (NEGATIVE)
[2018-01-07 14:00] LABS: Bacteria RARE /HPF (NEGATIVE); Epithelial Cells RARE /HPF (FEW); Hyaline Casts 0-2 /LPF (0-2); Mucus SLIGHT /HPF (NEGATIVE); WBC 0-2 /HPF (0-5)
[2018-01-07 14:06] LABS: ALBUMIN 4.9 g/dL (3.5-5.0); ALKALINE PHOSPHATASE 99 U/L (38-126); ANION GAP 16.9 MEQ/L (5-15); BLOOD UREA NITROGEN 11 mg/dL (9-20); CHLORIDE 102 mmol/L (98-107); Carbon Dioxide 26 mmol/L (22-30); ETHYL ALCOHOL < 10 mg/dL (0-10); Glucose 122 mg/dL (74-106); Potassium 4.9 mmol/L (3.5-5.1); SGOT/AST 42 U/L (17-59); SGPT/ALT 50 U/L (0-50); SODIUM 140 mmol/L (137-145); Total Protein 7.9 g/dL (6.3-8.2)
--- NOTE | 2018-01-07 14:44 | XRAY ---
Indication: Seizure and syncope. Multiple contiguous axial images obtained through the head without contrast. Comparison: December 09, 2014. Patient's head was secured manually due to patient motion which explains the mild motion artifact and beam artifact especially near the base of the brain. No gross acute intracranial hemorrhage, abnormal extra-axial fluid collection, or mass effect. Fourth ventricle is midline without hydrocephalus. Hardy-white matter differentiation preserved. Bony calvarium grossly intact. Visualized paranasal sinuses and mastoid air cells are grossly clear. Impression: Motion and beam artifact. No gross acute intracranial abnormalities. CTDI 62.53
[2018-01-07 15:01] LABS: Amphetamine,Urine POSITIVE (NEGATIVE)
[2018-01-07] MEDS ORDERED: SODIUM CHLORIDE 0.9% IV ONE (15:15)
[2018-01-07] MEDS ORDERED: FOSPHENYTOIN SODIUM IV ONE (15:15)
[2018-01-07 15:26] LABS: BAND 2 % (0.0-2.0); Eosinophil 3 % (0.00-3.0); Lymphocytes 11 % (24-44); Monocyte 3 % (0.0-12.0); Neutrophils 81 % (36.-66.); Platelet Estimate NORMAL (NORMAL); Total Cells Counted 100
[2018-01-07] MEDS ORDERED: Sodium Chloride 0.9% 1000 ML 1,000 ML IV SCH (16:07)
[2018-01-07] MEDS ORDERED: Ativan 2 MG/1 ML VIAL IV PRN (16:07)
[2018-01-07] MEDS ORDERED: TYLENOL 325 MG PO PRN (17:01)
[2018-01-08 05:57] LABS: ALBUMIN 3.8 g/dL (3.5-5.0); ALKALINE PHOSPHATASE 80 U/L (38-126); BLOOD UREA NITROGEN 11 mg/dL (9-20); CHLORIDE 105 mmol/L (98-107); Calcium 8.5 mg/dL (8.4-10.2); Carbon Dioxide 25 mmol/L (22-30); Creatinine 1 0.88 mg/dL (0.66-1.25); Glucose 84 mg/dL (74-106); Potassium 3.8 mmol/L (3.5-5.1); SGOT/AST 48 U/L (17-59); SGPT/ALT 42 U/L (0-50); SODIUM 139 mmol/L (137-145); Total Protein 6.4 g/dL (6.3-8.2)
[2018-01-08 06:00] LABS: Granulocyte Absolute (ANC) 5.36 (1.4-6.9); Hematocrit 41.8 % (42-50); Hemoglobin 13.8 gm/dl (12.5-18.0); Mean Cell Volume 91.1 fl (78-100); Mean Corpuscular Hemoglobin 30.1 pg (26-32); Platelet Count 206 K/mm3 (150-450); Red Blood Count 4.59 M/mm3 (4.1-5.6); Red Cell Distribution Width 13.6 % (11.5-14.0); White Blood Count 9.4 K/mm3 (4.0-10.5)
[2018-01-08 06:33] LABS: Lymphocytes 38 % (24-44); Monocyte 6 % (0.0-12.0); Neutrophils 56 % (36.-66.); Platelet Estimate NORMAL (NORMAL); Total Cells Counted 100
[2018-01-08 07:07] VITALS: BP 98/67; PULSE 76; O2SAT 98
--- NOTE | 2018-01-08 08:08 | HP ---
HISTORY OF PRESENT ILLNESS: This is a 32 year-old patient who was brought into the emergency room by EMS after being found in a ditch. The patient has a long history of seizure disorder. His mother is at the bedside and reports that he has been out of his seizure medicines because he has not had any insurance. The patient had a seizure in the emergency room and was given Ativan. Please see the emergency room physician's note for details on this. He is groggy now. He will say that he is at a hospital, what city we are in and what year it is. When the nurse asked him and then I asked him his name he did not answer. His mom states that he has not had any fevers, nausea or vomiting that she knows of. She reports that he does smoke cigarettes. He does not do any illicit drugs that she knows of. She reports that he lives with her and works at a [employer]. He injured his left big toe at the [employer] and has a bandage over this otherwise no injuries that they know of. They say that the toenail was pulled off. She reports that his boss at the [employer] he has been more spacey lately. REVIEW OF SYSTEMS: As above in the history of present illness otherwise unobtainable as the patient is still sleepy from the Ativan. PAST MEDICAL HISTORY: Seizure disorder, history of bipolar disorder, schizophrenia, history of fractured left ankle and chronic left ankle pain. History of acute renal failure that resolved. MEDICATIONS: None. ALLERGIES: NKDA. SOCIAL HISTORY: He lives at his mother's house. He smokes tobacco. His mother states he does not drink. He had urine tox that was positive for meth and THC back on 12/15/2017. Today, when asked about illicit drug use he does not answer those questions. PHYSICAL EXAMINATION: VITAL SIGNS: Temperature current 97.6F, temperature max 97.6F, heart rate 87 to 118, respiratory rate 16 to 18, blood pressure 107 to 118 over 51 to 63, weight 63.5 kg. Oxygen saturation 99 to 100% on room air. GENERAL: The patient is lying in bed sleeping but arousable and will answer questions for the nurse in my presence. No acute distress. CVS: He has a regular rate and rhythm. No murmurs, gallops or rubs are appreciated. CHEST: Clear to auscultation bilaterally. No crackles or wheezes. ABDOMEN: Soft, nontender, nondistended with normal bowel sounds. EXTREMITIES: No clubbing, cyanosis or edema. His right big toenail has an injury to this with some very mild erythema, no induration, no drainage. SKIN: Warm, dry and intact. LABORATORY DATA AND TESTS: Urine tox was positive for meth and THC. CBC white blood cell count was normal. Hemoglobin and PLT count normal. Glucose 122. Liver function tests normal. UA with small ketones, 250 blood, 2 to [address] without any acute cranial abnormalities. Please see the radiologist dictation for the full report. ASSESSMENT AND PLAN: 1) SEIZURE WITH HISTORY OF EPILEPSY: He was loaded with fosphenytoin 1,000 mg. He also received 1 mg of Ativan at 1355. Will continue his Ativan as needed for seizures. Will plan to restart his Dilantin tomorrow. Will ask for a discharge planning consult as his mother states he does not have insurance and that is why he was not taking his medications. 2) POLYSUBSTANCE ABUSE: The patient did nod his head "Yes" that he wanted to quit using these substances and shaking his head "No" when I asked if he wanted to have a [facility] consult regarding this.
[2018-01-08] MEDS ORDERED: Dilantin 100 MG PO SCH ×2 (10:00→22:00)
--- NOTE | 2018-01-10 09:15 | DS ---
DISCHARGE DIAGNOSES: 1) SEIZURE DISORDER. 2) POLYSUBSTANCE ABUSE. DISCHARGE PHYSICAL EXAMINATION: VITALS: Temperature current 98.6F, temperature max 98.6F, heart rate 66 to 83, respiratory rate 18 to 24, blood pressure 89 to 98 over 51 to 67 currently 98/67. Oxygen saturation 98 to 100%. GENERAL: The patient is a pleasant talkative man alert and oriented and in no acute distress. CVS: He has a regular rate and rhythm. No murmurs, gallops or rubs. CHEST: Clear to auscultation bilaterally. No crackles or wheezes. ABDOMEN: Soft, nontender, nondistended with normal bowel sounds. EXTREMITIES: No clubbing, cyanosis or edema. SKIN: Warm, dry and intact. He has a bandage over his left toe. NEURO: Cranial nerves II - XII are intact. Strength is 5/5 in all four extremities. Normal finger to nose and heel to chu bilaterally. ASSESSMENT AND PLAN: 1) History of epilepsy with seizure: The patient was loaded with fosphenytoin 1 gm yesterday IV, will restart his home dose of phenytoin 100 mg capsule two capsules in the a.m. and one capsule in the p.m. and plan to have him follow up with me in the clinic. Usually when he takes his medicine or does not use illicit drugs his seizures are well controlled on this. 2) Polysubstance abuse: This was discussed at length with the patient. He reports he wants to try to quit. I offered [facility] consultation and he declined this. DISPOSITION: The patient was discharged to home in good condition to resume the phenytoin as above and follow up with me in the clinic.
== END 2018-01-08 09:30 | disposition home or self-care (01) ==
LOC: ED 12:57 → MED SURG 15:51
PROVIDERS: ADMIT Internal Medicine; ATTEND Internal Medicine
DX: G40.909 Epilepsy, unspecified, not intractable, without status epilepticus (principal); F19.90 Other psychoactive substance use, unspecified, uncomplicated; F31.9 Bipolar disorder, unspecified; F20.9 Schizophrenia, unspecified
CPT/HCPCS: 36415; 70450; 80053; 80185; 80307; 81000; 82962; 84134; 85025; 87086; 93005; 93268; 94762; 96360; 96374; 99285; J2060; Q2009; A9270-GY; G0378; G0480

== ENCOUNTER 2018-06-03 22:14 | Emergency (ER) | payer OTHER ==
[2018-06-03 22:26] VITALS: O2SAT 100
[2018-06-03] MEDS ORDERED: TYLENOL 325 MG PO ONE (22:29)
[2018-06-03] MEDS ORDERED: TYLENOL 325 MG ONE (22:33)
--- NOTE | 2018-06-03 22:36 | ERPHSYRPT ---
- History of Present Illness Time Seen by Provider: 06/03/18 22:30 Source: patient Exam Limitations: no limitations Patient Subjective Stated Complaint: pt is alert and oriented. pt is ambulatory. pt states he punched a hard floor. pt has some swelling to his right 5th finger knuckle. pt states his pain is a 9/10. pt does not appear to be in distress. Triage Nursing Assessment: see above Physician History: This is a 32-year-old white male arrives with complaint of pain in his right hand right fifth finger symptoms for 1-1/2 hours. Patient states he became angry at home and punched the carpet he has pain on his proximal right fifth finger and pain on his distal right hand proximal to the right fifth finger. He is not having any problems moving his hand he denies any other complaints there is no sensory loss. Past medical history includes anxiety, depression, fracture left foot, fractured wrist Past surgical history is negative Social history positive tobacco Occurred: just prior to arrival (1-1/2 hours prior to arrival) Method of Injury: other (Punched the carpet) Quality: constant Severity of Pain-Max: moderate Severity of Pain-Current: mild Extremities Pain Location: hand: right, 5th finger: right Modifying Factors: Improves With: nothing Associated Symptoms: none Allergies/Adverse Reactions: naproxen [From Naprosyn] Adverse Reaction (Verified 06/03/18 22:26) Hx Tetanus, Diphtheria Vaccination/Date Given: Yes Hx Influenza Vaccination/Date Given: Yes Hx Pneumococcal Vaccination/Date Given: No Immunizations Up to Date: Yes - Review of Systems Constitutional: No Fever, No Chills Eyes: No Symptoms Ears, Nose, & Throat: No Symptoms Respiratory: No Cough, No Dyspnea Cardiac: No Chest Pain, No Edema, No Syncope Abdominal/Gastrointestinal: No Abdominal Pain, No Nausea, No Vomiting, No Diarrhea Genitourinary Symptoms: No Dysuria Musculoskeletal: Injury, Other (Pain right hand and right fifth finger), No Arthralgias, No Back Pain, No Neck Pain, No Deformity, No Fall, No Joint Redness , No Joint Pain, No Joint Swelling, No Myalgias Skin: No Symptoms, No Rash Neurological: No Dizziness, No Focal Weakness, No Sensory Changes Psychological: No Symptoms Endocrine: No Symptoms All Other Systems: Reviewed and Negative - Past Medical History Pertinent Past Medical History: Yes Neurological History: Seizures ENT History: No Pertinent History Cardiac History: No Pertinent History Respiratory History: No Pertinent History Endocrine Medical History: No Pertinent History Musculoskeletal History: Other GI Medical History: No Pertinent History History: No Pertinent History Psycho-Social History: Anxiety, Depression Male Reproductive Disorders: No Pertinent History Other Medical History: shattered left foot in 2010, broken wrist during childhood - Past Surgical History Past Surgical History: No Neuro Surgical History: No Pertinent History Cardiac: No Pertinent History Respiratory: No Pertinent History Gastrointestinal: No Pertinent History Genitourinary: No Pertinent History Musculoskeletal: No Pertinent History Male Surgical History: No Pertinent History - Social History Smoking Status: Current every day smoker How long have you smoked: 20 years Exposure to second hand smoke: Yes Drug Use: none Patient Lives Alone: No Significant Family History: no pertinent family hx - Nursing Vital Signs Nursing Vital Signs: Initial Vital Signs Temperature 97.7 F 06/03/18 22:21 Pulse Rate 93 H 06/03/18 22:21 Respiratory Rate 18 06/03/18 22:21 Blood Pressure 117/74 06/03/18 22:21 O2 Sat by Pulse Oximetry 100 06/03/18 22:21 Pain Scale Pain Intensity 9 - Physical Exam General Appearance: mild distress, alert Eyes, Ears, Nose, Throat Exam: moist mucous membranes Neck Exam: non-tender, supple Cardiovascular/Respiratory Exam: chest non-tender, normal breath sounds, regular rate/rhythm, no respiratory distress Abdominal Exam: non-tender, No guarding Back Exam: normal inspection, No vertebral tenderness Shoulder Exam: normal inspection, non-tender, no evidence of injury, normal ROM Elbow/Forearm Exam: normal inspection, non-tender, no evidence of injury, normal ROM Wrist Exam: normal inspection, non-tender, no evidence of injury Hand Exam: normal ROM, No normal inspection (right hand pain with palpation and movement right proximal fifth finger, right hand pain with palpation and movement overlying dorsal distal right fifth medical carpal. mild edema overlying dorsal distal right fifth metacarpal. Sensation intact to all fingers. Good capillary refill all fingers) DTR - Upper Extremity Exam: tricep (R): 2+, tricep (L): 2+ Neuro/Tendon Exam: normal sensation, normal motor functions Mental Status Exam: alert, oriented x 3, cooperative Skin Exam: normal color, warm, dry SpO2 Interpretation: normal (100%) SpO2: 100 Oxygen Delivery: Room Air - Course Nursing assessment & vital signs reviewed: Yes - Radiology Exams Right Hand X-ray Interpretation: Interpreted by me (x-ray right hand: No acute fractures or subluxation.) Ordered Tests: Active Orders 24 hr Category Date Time Status Cold Application STAT Care 06/03/18 22:21 Active HAND (MINIMUM 3 VIEWS) Stat Exams 06/03/18 22:29 Taken Medication Summary Discontinued Medications Generic Name Dose Route Start Last Admin Trade Name Shelia PRN Reason Stop Dose Admin Acetaminophen 650 mg 06/03/18 22:29 06/03/18 22:34 Tylenol 325 Mg PO 06/03/18 22:30 650 mg STAT ONE Administration Acetaminophen Confirm 06/03/18 22:33 Tylenol 325 Mg Administered 06/03/18 22:34 Dose 650 mg .ROUTE .[employer]-MED ONE - Progress Progress: improved Progress Note: 06/03/18 22:34 32-year-old white male with history of anxiety, depression, fracture left foot, fracture of the wrist Arrives with complaint of pain in his right hand overlying the dorsal distal right fifth metacarpal and the proximal right fifth finger. He states he has been hurting for 1-1/2 hours after becoming upset and punching a carpet. . Patient states he is allergic to Naprosyn he states this causes kidney failure in the past. Will go ahead and give patient Tylenol for pain. And obtain x-ray of the right hand. 06/03/18 23:00 X-ray right hand: No fracture no subluxation. (My read) Will have nurse apply a metacarpal splint . Patient to ice and elevate his right hand 24-48 hours Tylenol as needed for pain. - Departure Time of Disposition: 23:02 Departure Disposition: Home Clinical Impression: Right hand pain Contusion of right hand Qualifiers: Encounter type: initial encounter Qualified Code(s): S60.221A - Contusion of right hand, initial encounter Condition: Fair Critical Care Time: No Referrals: ZAHEER CALDERON [Primary Care Provider] - Instructions: Hand Pain (DC) Additional Instructions: Return home. Ice and elevate right hand 24-48 hours. Tylenol every 4 hours as needed for pain. Follow-up with your family doctor if symptoms are worse, no better in 48 hours, or persist longer than one week. Return for acute distress or for severe symptoms. Your x-rays have been preliminarily read they will be reread tomorrow. He'll be contacted if any discrepancies are noted.
[2018-06-03 23:16] VITALS: BP 115/71; PULSE 84
--- NOTE | 2018-06-04 08:48 | XRAY ---
Indication: Pain following punching injury. Comparison: December 14, 2013. 3 views of the right hand obtained. No new/acute bony, articular, or soft tissue abnormalities.
[2018-06-04] MEDS ORDERED: DUONEB 0.5-3 MG/3 ml Neb IH ONE (10:11)
== END 2018-06-03 23:24 | disposition home or self-care (01) ==
LOC: ED 22:14
DX: S60.221A Contusion of right hand, initial encounter (principal); M79.641 Pain in right hand; W22.8XXA Striking against or struck by other objects, initial encounter; Y93.89 Activity, other specified
CPT/HCPCS: 73130; 99283; A4570; A9270-GY

== ENCOUNTER 2018-06-13 10:47 | Emergency (ER) | payer OTHER ==
--- NOTE | 2018-06-13 11:43 | ERPHSYRPT ---
- History of Present Illness Time Seen by Provider: 06/13/18 11:38 Source: patient Exam Limitations: no limitations Patient Subjective Stated Complaint: states on day hit the floor with his right hand when he was angry. had swelling to hand at that time and was seen in er. states was told at that time there were no fractures to hand. was given ibuprophen which he states is not working. states yesterday he moved some furniture and thinks he reinjured hand. Triage Nursing Assessment: ambulated to room per self holding right hand. some bruising and swelling to hand. good cap refill and good radial pulse. Physician History: The patient is a right-handed 32-year-old male complaining that on he punched a wall with his right hand causing pain to the area around his little finger. He says he was seen in this ER. He did not stay to find out if he had any broken bones. Now he has been moving furniture and last night his right hand was hurting more. He he took 800 mg ibuprofen with some relief. It's hard for him to make a fist with the little and ring finger on his right hand because of the pain. He denies numbness or tingling. His past medical history significant for seizure disorder. Occurred: days ago (10) Method of Injury: direct blow Quality: constant, sharpness Severity of Pain-Max: moderate Severity of Pain-Current: moderate Extremities Pain Location: hand: right Modifying Factors: Improves With: pain medication Associated Symptoms: none Allergies/Adverse Reactions: naproxen [From Naprosyn] Adverse Reaction (Verified 06/13/18 10:57) Hx Tetanus, Diphtheria Vaccination/Date Given: Yes Hx Influenza Vaccination/Date Given: Yes Hx Pneumococcal Vaccination/Date Given: No - Review of Systems Constitutional: No Fever, No Chills Eyes: No Symptoms Ears, Nose, & Throat: No Symptoms Respiratory: No Cough, No Dyspnea Cardiac: No Chest Pain, No Edema, No Syncope Abdominal/Gastrointestinal: No Abdominal Pain, No Nausea, No Vomiting, No Diarrhea Genitourinary Symptoms: No Dysuria Musculoskeletal: Injury Skin: No Rash Neurological: No Symptoms Psychological: No Symptoms Endocrine: No Symptoms Hematologic/Lymphatic: No Symptoms Immunological/Allergic: No Symptoms All Other Systems: Reviewed and Negative - Past Medical History Pertinent Past Medical History: Yes Neurological History: Seizures ENT History: No Pertinent History Cardiac History: No Pertinent History Respiratory History: No Pertinent History Endocrine Medical History: No Pertinent History Musculoskeletal History: Other GI Medical History: No Pertinent History History: No Pertinent History Psycho-Social History: Anxiety, Depression Male Reproductive Disorders: No Pertinent History Other Medical History: shattered left foot in 2010, broken wrist during childhood - Past Surgical History Past Surgical History: No Neuro Surgical History: No Pertinent History Cardiac: No Pertinent History Respiratory: No Pertinent History Gastrointestinal: No Pertinent History Genitourinary: No Pertinent History Musculoskeletal: No Pertinent History Male Surgical History: No Pertinent History - Social History Smoking Status: Current every day smoker How long have you smoked: 20 years Exposure to second hand smoke: No Drug Use: none Patient Lives Alone: No Significant Family History: no pertinent family hx - Nursing Vital Signs Nursing Vital Signs: Initial Vital Signs Temperature 97.5 F 06/13/18 10:51 Pulse Rate 86 06/13/18 10:51 Respiratory Rate 18 06/13/18 10:51 Blood Pressure 112/71 06/13/18 10:51 O2 Sat by Pulse Oximetry 100 06/13/18 10:51 Pain Scale Pain Intensity 8 - Physical Exam General Appearance: alert Eyes, Ears, Nose, Throat Exam: moist mucous membranes Neck Exam: non-tender, supple Cardiovascular/Respiratory Exam: chest non-tender, normal breath sounds, regular rate/rhythm, no respiratory distress Abdominal Exam: non-tender, No guarding Back Exam: normal inspection, No vertebral tenderness Shoulder Exam: normal inspection Elbow/Forearm Exam: normal inspection Wrist Exam: normal inspection Hand Exam: limited ROM (Examination of the right hand reveals some soft tissue tenderness over the distal fourth and fifth metacarpal bones. There is mild limited range of motion of flexion of the fourth and fifth digit.), soft tissue tenderness Neuro/Tendon Exam: normal sensation, normal motor functions Mental Status Exam: alert, oriented x 3, cooperative Skin Exam: normal color, warm, dry SpO2 Interpretation: normal SpO2: 100 Oxygen Delivery: Room Air Ordered Tests: Active Orders 24 hr Category Date Time Status HAND (MINIMUM 3 VIEWS) Stat Exams 06/13/18 11:42 Completed - Progress Progress: unchanged Progress Note: 06/13/18 11:41 I reviewed the right hand x-ray and the report of the right hand x-ray performed on 06/03/18. No acute bony abnormality was identified. Counseled pt/family regarding: diagnosis, need for follow-up, rad results - Departure Time of Disposition: 12:20 Departure Disposition: Home Clinical Impression: Right hand pain Condition: Stable Critical Care Time: No Referrals: ZAHEER CALDERON [Primary Care Provider] - Additional Instructions: You have right hand pain. You did not have a broken bone on the x-ray from . You do not have any broken bones on the x-ray of your right hand done today. Take ibuprofen 600 mg every 6 hours as needed for pain. Apply ice to the area as needed. Follow-up with your primary medical doctor on Saturday. Prescriptions: Ibuprofen 1 tab PO Q6H PRN PRN #24 tablet PRN Reason: pain
--- NOTE | 2018-06-13 12:04 | XRAY ---
Indication: Pain following recent injury. Comparison: June 03, 2018. 3 views of the right hand obtained. Again no bony, articular, or soft tissue abnormalities.
[2018-06-13 12:23] VITALS: O2SAT 100
[2018-06-13 12:58] VITALS: BP 111/77; PULSE 81
== END 2018-06-13 12:57 | disposition home or self-care (01) ==
LOC: ED 10:47
DX: M79.641 Pain in right hand (principal); M79.89 Other specified soft tissue disorders; S60.221A Contusion of right hand, initial encounter; X50.0XXA Overexertion from strenuous movement or load, initial encounter; F41.9 Anxiety disorder, unspecified; F32.9 Major depressive disorder, single episode, unspecified; G40.909 Epilepsy, unspecified, not intractable, without status epilepticus; Z72.0 Tobacco use
CPT/HCPCS: 73130; 99283

== ENCOUNTER 2018-07-18 10:25 | Emergency (ER) | payer MEDICAID, OTHER | END 2018-07-18 11:00 | disposition home or self-care (01) | LOC: ED 10:25 ==

== ENCOUNTER 2018-12-12 14:48 | Emergency (ER) | payer MEDICAID ==
--- NOTE | 2018-12-12 15:06 | ERPHSYRPT ---
- History of Present Illness Time Seen by Provider: 12/12/18 14:58 Source: patient Exam Limitations: clinical condition Physician History: PATIENT WITH A HISTORY OF POLYSUBSTANCE ABUSE, AND SEIZURE DISORDER, THINKS HE MAY HAVE HAD A SEIZURE TODAY, FOUND POSTICAL BY EMS, GIVEN NARCAN 2MG INTRAVENOUS AND PATIENT AWAKENED. PATIENT DENIES HEADACHE, NECK PAIN, BLURRED VISION, PRESCRIPTION OR STEET DRUG USE. ADMITS TO BEING OUT OF HIS SEIZURE MEDICATIONS FOR 1 MONTH, DILANTIN. Timing/Duration: today Severity: moderate Character of Deficits: none Deficits: no difficulties Baseline/Normal Cognition: alert oriented x 3 Current Cognition: alert oriented x 3 Baseline Gait: walks w/o assistance Associated Symptoms: other Allergies/Adverse Reactions: naproxen [From Naprosyn] Adverse Reaction (Verified 06/13/18 10:57) Hx Tetanus, Diphtheria Vaccination/Date Given: Yes Hx Influenza Vaccination/Date Given: Yes Hx Pneumococcal Vaccination/Date Given: No - Review of Systems Constitutional: No Fever, No Chills Eyes: No Symptoms Ears, Nose, & Throat: No Symptoms Respiratory: No Symptoms, No Cough, No Dyspnea Cardiac: No Symptoms, No Chest Pain, No Edema, No Syncope Abdominal/Gastrointestinal: No Symptoms, No Abdominal Pain, No Nausea, No Vomiting, No Diarrhea Genitourinary Symptoms: No Symptoms, No Dysuria Musculoskeletal: No Symptoms, No Back Pain, No Neck Pain Skin: No Rash Neurological: Seizure, No Dizziness, No Focal Weakness, No Sensory Changes Psychological: No Symptoms Endocrine: No Symptoms All Other Systems: Reviewed and Negative - Past Medical History Pertinent Past Medical History: Yes Neurological History: Seizures ENT History: No Pertinent History Cardiac History: No Pertinent History Respiratory History: No Pertinent History Endocrine Medical History: No Pertinent History Musculoskeletal History: Other GI Medical History: No Pertinent History History: No Pertinent History Psycho-Social History: Anxiety, Depression Male Reproductive Disorders: No Pertinent History Other Medical History: shattered left foot in 2010, broken wrist during childhood - Past Surgical History Past Surgical History: No Neuro Surgical History: No Pertinent History Cardiac: No Pertinent History Respiratory: No Pertinent History Gastrointestinal: No Pertinent History Genitourinary: No Pertinent History Musculoskeletal: No Pertinent History Male Surgical History: No Pertinent History - Social History Smoking Status: Current every day smoker How long have you smoked: 20 years Exposure to second hand smoke: No Drug Use: none Patient Lives Alone: No Significant Family History: no pertinent family hx - Nursing Vital Signs Nursing Vital Signs: Initial Vital Signs Pulse Rate 126 H 12/12/18 14:49 Respiratory Rate 16 12/12/18 14:49 Blood Pressure 137/70 12/12/18 14:49 O2 Sat by Pulse Oximetry 99 12/12/18 14:49 Pain Scale Pain Intensity 0 - [place] Coma Scale Best Eye Response ([place]): (4) open spontaneously Best Verbal Response ([place]): (5) oriented Best Motor Response ([place]): (6) obeys commands [place] Total: 15 - Physical Exam General Appearance: no apparent distress, alert Eye Exam: bilateral eye: PERRL, EOMI Ears, Nose, Throat Exam: normal ENT inspection, moist mucous membranes Neck Exam: normal inspection, non-tender, supple Respiratory: normal breath sounds, lungs clear, airway intact, No respiratory distress Cardiovascular: regular rate/rhythm, No edema Gastrointestinal: soft, No tenderness, No distention Back Exam: normal inspection Extremity Exam: normal inspection, No pedal edema Peripheral Pulses: carotid (R): 2+, carotid (L): 2+, femoral (R): 2+, femoral (L ): 2+, dorsalis-pedis (R): 2+, dorsalis-pedis (L): 2+ 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, 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, normal speech, tongue midline Coordination/Gait: normal finger to nose, normal gait Motor/Sensory: no motor deficit, no sensory deficit, no pronator drift DTR: bicep (R): 2+, bicep (L): 2+, tricep (R): 2+, tricep (L): 2+, knee (R): 2+ , knee (L): 2+, ankle (R): 2+, ankle (L): 2+ Skin Exam: normal color, warm, dry, No rash SpO2 Interpretation: normal SpO2: 98 O2 Delivery: Room Air - Course EKG Interpreted by Me: RATE, Sinus Rhythm, Sinus Tach, Right [place] Deviation - Radiology Exams Chest X-ray Interpretation: Discussed w/ radiologist, No Infiltrates - CT Exams Head CT Interpretation: Discussed w/radiologist, No/Intracranial Hemorrhag Ordered Tests: Active Orders 24 hr Category Date Time Status Animal Geneticist STAT Care 12/12/18 15:09 Active EKG-ER Only STAT Care 12/12/18 15:09 Active IV Insertion STAT Care 12/12/18 15:09 Active CHEST 1 VIEW (PORTABLE) Stat Exams 12/12/18 15:08 Completed HEAD WITHOUT CONTRAST [CT] Stat Exams 12/12/18 15:08 Completed CBC W DIFF Stat Lab 12/12/18 15:50 Completed CMP Stat Lab 12/12/18 15:50 Completed CULTURE,URINE Stat Lab 12/12/18 15:07 Received Lactic Acid Stat Lab 12/12/18 16:13 Completed UA W/RFX UR CULTURE Stat Lab 12/12/18 15:07 Completed Urine Triage Profile Stat Lab 12/12/18 15:30 Completed Medication Summary Discontinued Medications Generic Name Dose Route Start Last Admin Trade Name Freq PRN Reason Stop Dose Admin Fosphenytoin Sodium Confirm 12/12/18 16:09 Cerebyx 50 Mg/Ml Administered 12/12/18 16:10 Dose 1,000 mg .ROUTE .STK-MED ONE Sodium Chloride 1,000 mls @ 999 mls/hr 12/12/18 15:11 12/12/18 16:19 Sodium Chloride 0.9% 1000 Ml IV 12/12/18 16:11 Infused .Q1H1M STA Infusion Sodium Chloride Confirm 12/12/18 15:12 Sodium Chloride 0.9% 1000 Ml Administered 12/12/18 15:13 Dose 1,000 mls @ ud .ROUTE .STK-MED ONE Fosphenytoin Sodium 1,000 mg/ 120 mls @ 240 mls/hr 12/12/18 16:00 12/12/18 16 :19 Sodium Chloride IV 12/12/18 16:29 240 mls/hr STAT ONE Administration Ceftriaxone Sodium/Dextrose 1 g in 50 mls @ 100 mls/hr 12/12/18 16:08 16:45 Rocephin 1 Gm-D5w 50 Ml Bag IV 12/12/18 16:37 100 mls/hr STAT STA 100 mls/hr Administration Sodium Chloride Confirm 12/12/18 16:08 Sodium Chloride 0.9% 100 Ml Ivpb Administered 12/12/18 16:09 Dose 100 mls @ ud IV .STK-MED ONE Ceftriaxone Sodium/Dextrose Confirm 12/12/18 16:45 Rocephin 1 Gm-D5w 50 Ml Bag Administered 12/12/18 16:46 Dose 1 g in 50 mls @ ud IV .STK-MED ONE Lab/Rad Data: Laboratory Result Diagrams 12/12/18 15:50 12/12/18 15:50 Laboratory Results 12/12/18 12/12/18 12/12/18 Range/Units 16:13 15:50 15:50 WBC (4.0-10.5) K/mm3 RBC (4.1-5.6) M/mm3 Hgb (12.5-18.0) gm/dl Hct (42-50) % MCV (78-100) fl MCH (26-32) pg MCHC (32-36) g/dl RDW (11.5-14.0) % Plt Count (150-450) K/mm3 MPV (6-9.5) fl Gran % (36.0-66.0) % Eos # (Auto) (0-0.5) Absolute Lymphs (auto) (1.0-4.6) Absolute Monos (auto) (0.0-1.3) Lymphocytes % (24.0-44.0) % Monocytes % (0.0-12.0) % Eosinophils % (0.00-5.0) % Basophils % (0.0-0.4) % Absolute Granulocytes (1.4-6.9) Basophils # (0-0.4) Sodium 139 (137-145) mmol/L Potassium 3.5 (3.5-5.1) mmol/L Chloride 104 (98-107) mmol/L Carbon Dioxide 23 (22-30) mmol/L Anion Gap 15.6 H (5-15) MEQ/L BUN 14 (9-20) mg/dL Creatinine 1.02 (0.66-1.25) mg/dL Estimated GFR > 60.0 ML/MIN Glucose 108 H (74-106) mg/dL Lactic Acid 1.8 (0.4-2.0) Calcium 9.3 (8.4-10.2) mg/dL Total Bilirubin 0.90 (0.2-1.3) mg/dL AST 24 (17-59) U/L ALT 18 (0-50) U/L Alkaline Phosphatase 87 (38-126) U/L Serum Total Protein 7.7 (6.3-8.2) g/dL Albumin 4.6 (3.5-5.0) g/dL Urine Color (YELLOW) Urine Appearance (CLEAR) Urine pH (5-6) Ur Specific [place] (1.005-1.025) Urine Protein (Negative) Urine Ketones (NEGATIVE) Urine Blood (0-5) Branden/ul Urine Nitrite (NEGATIVE) Urine Bilirubin (NEGATIVE) Urine Urobilinogen (0-1) mg/dL Ur Leukocyte Esterase (NEGATIVE) Urine WBC (Auto) (0-5) /HPF Urine RBC (Auto) (0-2) /HPF U Hyaline Cast (Auto) (0-2) /LPF U Epithel Cells (Auto) (FEW) /HPF Urine Bacteria (Auto) (NEGATIVE) /HPF Urine Mucus (Auto) (NEGATIVE) /HPF Urine Sperm (Auto) (NEGATIVE) /HPF Urine Culture Reflexed (NO) Urine Glucose (NEGATIVE) mg/dL Urine Opiates Level (NEGATIVE) Ur Methadone (NEGATIVE) Urine Barbiturates (NEGATIVE) Phenytoin < 3.0 L (10-20) ug/mL Ur Phencyclidine (PCP) (NEGATIVE) Urine Amphetamine (NEGATIVE) U Benzodiazepine Level (NEGATIVE) Urine Cocaine (NEGATIVE) Urine Marijuana (THC) (NEGATIVE) 12/12/18 12/12/18 12/12/18 Range/Units 15:50 15:30 15:07 WBC 13.0 H (4.0-10.5) K/mm3 RBC 4.61 (4.1-5.6) M/mm3 Hgb 14.3 (12.5-18.0) gm/dl Hct 41.0 L (42-50) % MCV 88.9 (78-100) fl MCH 31.0 (26-32) pg MCHC 34.9 (32-36) g/dl RDW 13.1 (11.5-14.0) % Plt Count 211 (150-450) K/mm3 MPV 11.5 H (6-9.5) fl Gran % 82.4 H (36.0-66.0) % Eos # (Auto) 0.21 (0-0.5) Absolute Lymphs (auto) 1.19 (1.0-4.6) Absolute Monos (auto) 0.84 (0.0-1.3) Lymphocytes % 9.2 L (24.0-44.0) % Monocytes % 6.5 (0.0-12.0) % Eosinophils % 1.6 (0.00-5.0) % Basophils % 0.3 (0.0-0.4) % Absolute Granulocytes 10.67 H (1.4-6.9) Basophils # 0.04 (0-0.4) Sodium (137-145) mmol/L Potassium (3.5-5.1) mmol/L Chloride (98-107) mmol/L Carbon Dioxide (22-30) mmol/L Anion Gap (5-15) MEQ/L BUN (9-20) mg/dL Creatinine (0.66-1.25) mg/dL Estimated GFR ML/MIN Glucose (74-106) mg/dL Lactic Acid (0.4-2.0) Calcium (8.4-10.2) mg/dL Total Bilirubin (0.2-1.3) mg/dL AST (17-59) U/L ALT (0-50) U/L Alkaline Phosphatase (38-126) U/L Serum Total Protein (6.3-8.2) g/dL Albumin (3.5-5.0) g/dL Urine Color YELLOW (YELLOW) Urine Appearance SLIGHTLY CLOUDY (CLEAR) Urine pH 5.0 (5-6) Ur Specific [place] 1.019 (1.005-1.025) Urine Protein >=500 (Negative) Urine Ketones TRACE (NEGATIVE) Urine Blood SMALL (0-5) Branden/ul Urine Nitrite NEGATIVE (NEGATIVE) Urine Bilirubin NEGATIVE (NEGATIVE) Urine Urobilinogen NEGATIVE (0-1) mg/dL Ur Leukocyte Esterase NEGATIVE (NEGATIVE) Urine WBC (Auto) 6-10 (0-5) /HPF Urine RBC (Auto) 6-10 (0-2) /HPF U Hyaline Cast (Auto) 11-25 (0-2) /LPF U Epithel Cells (Auto) NONE (FEW) /HPF Urine Bacteria (Auto) FEW (NEGATIVE) /HPF Urine Mucus (Auto) SLIGHT (NEGATIVE) /HPF Urine Sperm (Auto) PRESENT (NEGATIVE) /HPF Urine Culture Reflexed YES (NO) Urine Glucose NEGATIVE (NEGATIVE) mg/dL Urine Opiates Level NEGATIVE (NEGATIVE) Ur Methadone NEGATIVE (NEGATIVE) Urine Barbiturates NEGATIVE (NEGATIVE) Phenytoin (10-20) ug/mL Ur Phencyclidine (PCP) NEGATIVE (NEGATIVE) Urine Amphetamine POSITIVE (NEGATIVE) U Benzodiazepine Level NEGATIVE (NEGATIVE) Urine Cocaine NEGATIVE (NEGATIVE) Urine Marijuana (THC) POSITIVE (NEGATIVE) - Progress Progress Note: 12/12/18 16:16 IV BOLUS NORMAL SALINE 1LITER/HR CEREBYX 1000MG IVPB OVER 1 HOUR, FOLLOWED BY ROCEPHIN 1GM IVPB 12/12/18 16:17 ALL LABS REVIEWED AND ARE NORMAL EXCEPT URINE WBC-6-10, APPEARANCE CLOUDY Counseled pt/family regarding: lab results, diagnosis, rad results - Departure Departure Disposition: Home Clinical Impression: Seizure disorder, URINARY TRACT INFECTION, POLYSUBSTANCE ABUSE Condition: Stable Critical Care Time: No Referrals: ZAHEER CALDERON [Primary Care Provider] - Additional Instructions: BEGIN DILANTIN 100MG, 2 TABLETS TWICE DAILY. ANTIBIOTIC MACROBID 100MG TWICE DAILY FOR URINARY TRACT INFECTION. CONSULT YOUR PRIMARY CARE PROVIDER FOR FOLLOWUP IN 4-5 DAYS. RETURN TO EMERGENCY ROOM FOR SEIZURE ACTIVITY. Prescriptions: Nitrofurantoin Macro 100 mg [Macrobid 100MG Capsule] 100 mg PO BID #20 cap Phenytoin Sod Extended 100 mg* [Dilantin 100 MG] 2 tab PO BID #120 capsule
[2018-12-12] MEDS ORDERED: Sodium Chloride 0.9% 1000 ML 1,000 ML IV STA (15:11)
[2018-12-12] MEDS ORDERED: Sodium Chloride 0.9% 1000 ML 1,000 ML ONE (15:12)
--- NOTE | 2018-12-12 15:31 | XRAY ---
Indication: Seizures. Multiple contiguous axial images obtained through the head without contrast. Comparison: January 07, 2018. Again normal appearing brain parenchyma, ventricles, and bony calvarium. Visualized paranasal sinuses and mastoid air cells are clear. Impression: Normal CT head without contrast exam. CT DI 67.22
[2018-12-12 15:32] LABS: Appearance SLIGHTLY CLOUDY (CLEAR); Bacteria FEW /HPF (NEGATIVE); Bilirubin NEGATIVE (NEGATIVE); Blood SMALL Ery/ul (0-5); Glucose NEGATIVE (NEGATIVE); Ketones TRACE (NEGATIVE); Leukocyte Esterase NEGATIVE (NEGATIVE); Mucus SLIGHT /HPF (NEGATIVE); Nitrite NEGATIVE (NEGATIVE); Protein,Urine Dip >=500 (Negative); Specific Gravity 1.019 (1.005-1.025); Sperm PRESENT /HPF (NEGATIVE); Urobilinogen NEGATIVE mg/dL (0-1)
--- NOTE | 2018-12-12 15:33 | XRAY ---
Indication: Dyspnea. Comparison: June 17, 2017. Portable chest remains hyperinflated and clear with incidental tiny calcified granulomas. Heart is not enlarged. Bony thorax intact. No new/acute findings.
[2018-12-12 15:43] LABS: Barbiturate,Urine NEGATIVE (NEGATIVE); Benzodiazepine,Urine NEGATIVE (NEGATIVE); Cocaine,Urine NEGATIVE (NEGATIVE); Methadone,Urine NEGATIVE (NEGATIVE); Opiate,Urine NEGATIVE (NEGATIVE); PCP,Urine NEGATIVE (NEGATIVE); THC,Urine POSITIVE (NEGATIVE)
[2018-12-12 15:59] LABS: BASOPHIL % 0.3 % (0.0-0.4); Basophil (Absolute #) 0.04 (0-0.4); Eosinophil % 1.6 % (0.00-5.0); Eosinophil (Absolute #) 0.21 (0-0.5); Granulocyte Absolute (ANC) 10.67 (1.4-6.9); Granulocytes % 82.4 % (36.0-66.0); Hemoglobin 14.3 gm/dl (12.5-18.0); Lymphocyte (Absolute #) 1.19 (1.0-4.6); Lymphocytes % 9.2 % (24.0-44.0); Mean Cell Volume 88.9 fl (78-100); Mean Corpuscular Hgb Concent. 34.9 g/dl (32-36); Mean Platelet Volume 11.5 fl (6-9.5); Monocyte (Absolute #) 0.84 (0.0-1.3); Monocytes % 6.5 % (0.0-12.0); Platelet Count 211 K/mm3 (150-450); Red Blood Count 4.61 M/mm3 (4.1-5.6); Red Cell Distribution Width 13.1 % (11.5-14.0)
[2018-12-12] MEDS ORDERED: cereBYX 50 MG/ML*** 1,000 MG in Sodium Chloride 0.9% 100 ML IVPB 100 ML IV ONE (16:00)
[2018-12-12 16:03] LABS: Amphetamine,Urine POSITIVE (NEGATIVE)
[2018-12-12] MEDS ORDERED: Sodium Chloride 0.9% 100 ML IVPB 100 ML IV ONE (16:08)
[2018-12-12] MEDS ORDERED: ROCEPHIN 1 Gm-D5w 50 ml Bag** 1 G/50 ML IVPB IV STA (16:08)
[2018-12-12] MEDS ORDERED: cereBYX 50 MG/ML ONE (16:09)
[2018-12-12 16:10] LABS: ALBUMIN 4.6 g/dL (3.5-5.0); ALKALINE PHOSPHATASE 87 U/L (38-126); ANION GAP 15.6 MEQ/L (5-15); BLOOD UREA NITROGEN 14 mg/dL (9-20); CHLORIDE 104 mmol/L (98-107); Calcium 9.3 mg/dL (8.4-10.2); Carbon Dioxide 23 mmol/L (22-30); Creatinine 1 1.02 mg/dL (0.66-1.25); Glucose 108 mg/dL (74-106); Potassium 3.5 mmol/L (3.5-5.1); SGOT/AST 24 U/L (17-59); SGPT/ALT 18 U/L (0-50); SODIUM 139 mmol/L (137-145); Total Protein 7.7 g/dL (6.3-8.2)
[2018-12-12] MEDS ORDERED: ROCEPHIN 1 Gm-D5w 50 ml Bag** 1 G/50 ML IVPB IV ONE (16:45)
[2018-12-12 16:55] VITALS: BP 109/78; PULSE 84
[2018-12-12 16:56] VITALS: O2SAT 98
== END 2018-12-12 17:05 | disposition home or self-care (01) ==
LOC: ED 14:48
DX: G40.909 Epilepsy, unspecified, not intractable, without status epilepticus (principal); N39.0 Urinary tract infection, site not specified; F19.10 Other psychoactive substance abuse, uncomplicated
CPT/HCPCS: 36000; 36415; 70450; 71045; 80053; 80185; 80307; 81001; 83605; 85025; 87086; 93005; 93041; 96360; 96365; 96367; 99284; J0696; Q2009

== ENCOUNTER 2019-09-22 19:08 | Emergency (ER) | payer MEDICAID, OTHER ==
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
[2019-09-22] MEDS ORDERED: PERCOCET TABLET 5/325MG PO STA ×2 (20:02→20:28)
[2019-09-22] MEDS ORDERED: PERCOCET TABLET 5/325MG ONE ×2 (20:09→20:32)
[2019-09-22 20:11] VITALS: BP 112/66; PULSE 93
[2019-09-22 20:14] VITALS: O2SAT 99
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
== END 2019-09-22 20:35 | disposition home or self-care (01) ==
LOC: ED 19:08
DX: S62.324A Displaced fracture of shaft of fourth metacarpal bone, right hand, initial encounter for closed fracture (principal); Y04.2XXA Assault by strike against or bumped into by another person, initial encounter
CPT/HCPCS: 29126; 73130; 99284; A9270-GY

== ENCOUNTER 2019-11-01 10:03 | Observation (INO) | payer OTHER ==
--- NOTE | 2019-11-01 10:19 | ERPHSYRPT ---
- History of Present Illness Time Seen by Provider: 11/01/19 10:14 Source: patient, EMS Exam Limitations: clinical condition Physician History: pt is 34 yr old male with altered mental status that states he ingested something - he allegedly was reported by police to have been picked up for riding a bike without clothing . He has no reported trauma and is slightly hypervigilant and disoriented but not disruptive and is cooperating so far. full ROM all ext without pain and neuro non focal - just altered mental status. Timing/Duration: today Severity of Symptoms-Max: moderate Severity of Symptoms-Current: moderate Context related to: other (unknown but exhibits paranoia) Suicidal thoughts: ingestion Associated Symptoms: agitated, confused, paranoid Previous symptoms: no prior history Allergies/Adverse Reactions: naproxen [From Naprosyn] Adverse Reaction (Verified 11/01/19 10:40) pt refuses to answer Home Medications: No Reportable Medications [No Reported Medications] 09/22/19 [History] Hx Tetanus, Diphtheria Vaccination/Date Given: Yes Hx Influenza Vaccination/Date Given: Yes Hx Pneumococcal Vaccination/Date Given: No - Past Medical History Pertinent Past Medical History: Yes Neurological History: Seizures ENT History: No Pertinent History Cardiac History: No Pertinent History Respiratory History: No Pertinent History Endocrine Medical History: No Pertinent History Musculoskeletal History: Other GI Medical History: No Pertinent History History: No Pertinent History Psycho-Social History: Anxiety, Depression Male Reproductive Disorders: No Pertinent History Other Medical History: shattered left foot in 2010, broken wrist during childhood - Past Surgical History Past Surgical History: No Neuro Surgical History: No Pertinent History Cardiac: No Pertinent History Respiratory: No Pertinent History Gastrointestinal: No Pertinent History Genitourinary: No Pertinent History Musculoskeletal: No Pertinent History Male Surgical History: No Pertinent History - Social History Smoking Status: Current every day smoker How long have you smoked: 20 years Exposure to second hand smoke: No Drug Use: marijuana Patient Lives Alone: No Significant Family History: no pertinent family hx - Review of Systems Constitutional: No Fever, No Chills Eyes: No Symptoms Ears, Nose, & Throat: No Symptoms Respiratory: No Cough, No Dyspnea Cardiac: No Chest Pain, No Edema, No Syncope Abdominal/Gastrointestinal: No Abdominal Pain, No Nausea, No Vomiting, No Diarrhea Genitourinary Symptoms: No Dysuria Musculoskeletal: No Back Pain, No Neck Pain Skin: No Rash Neurological: Irritability, No Dizziness, No Focal Weakness, No Sensory Changes Psychological: Drug Abuse, Other (paranoid ideation) Endocrine: No Symptoms Hematologic/Lymphatic: No Symptoms All Other Systems: Reviewed and Negative - Nursing Vital Signs Nursing Vital Signs: Initial Vital Signs Temperature 97 F 11/01/19 10:07 Pulse Rate 82 11/01/19 10:07 Respiratory Rate 16 11/01/19 10:07 Blood Pressure 122/87 11/01/19 10:07 O2 Sat by Pulse Oximetry 100 11/01/19 10:07 Pain Scale Pain Intensity 0 - Physical Exam General Appearance: no apparent distress Eyes, Ears, Nose, Throat Exam: normal ENT inspection, moist mucous membranes Neck Exam: normal inspection, non-tender, supple Respiratory Exam: normal breath sounds, lungs clear, No respiratory distress Cardiovascular Exam: regular rate/rhythm, No edema Gastrointestinal/Abdominal Exam: soft, No tenderness, No distention Extremities Exam: normal inspection, normal range of motion, No evidence of injury, No edema Peripheral Pulses: carotid (R): 2+, carotid (L): 2+, femoral (R): 2+, femoral (L ): 2+, dorsalis-pedis (R): 2+, dorsalis-pedis (L): 2+ Current Suicidality: denies suicide plan Neurological Exam: alert, line lead II-XII nml as tested, oriented x 3 Appearance: disheveled Behavior/Eye Contact/Speech: alert & cooperative, agitated Thoughts/Hallucinations: no apparent hallucination, paranoid, persecution Skin Exam: normal color, warm, dry, No rash - Course Nursing assessment & vital signs reviewed: Yes EKG Interpreted by Me: Sinus Rhythm, Non-specific ST Changes Ordered Tests: Active Orders 24 hr Category Date Time Status EKG-ER Only STAT Care 11/01/19 10:08 Active IV Insertion STAT Care 11/01/19 10:51 Active Pulse Oximetry (ED) STAT Care 11/01/19 10:08 Active cath [Cath for Specimen-Straight] STAT Care 11/01/19 11:34 Active Tele-Health Consult ROUTINE Cons 11/01/19 10:08 Active ACETAMINOPHEN Stat Lab 11/01/19 10:50 Completed CBC W DIFF Stat Lab 11/01/19 10:50 Completed CK (IN-HOUSE) [CK-Creatinine Phosphokinase] Stat Lab 11/01/19 11:00 Completed CMP Stat Lab 11/01/19 10:50 Completed ETHYL ALCOHOL Stat Lab 11/01/19 10:50 Completed Lactic Acid Stat Lab 11/01/19 10:33 Completed Lactic Acid Stat Lab 11/01/19 12:38 Completed SALICYLATE Stat Lab 11/01/19 10:50 Completed UA W/RFX UR CULTURE Stat Lab 11/01/19 11:34 Completed Urine Triage Profile Stat Lab 11/01/19 11:34 Completed Medication Summary Discontinued Medications Generic Name Dose Route Start Last Admin Trade Name Freq PRN Reason Stop Dose Admin Sodium Chloride 1,000 mls @ 999 mls/hr 11/01/19 11:11 11/01/19 12:19 Sodium Chloride 0.9% 1000 Ml IV 11/01/19 12:11 Infused .Q1H1M STA Infusion Sodium Chloride Confirm 11/01/19 11:20 Sodium Chloride 0.9% 1000 Ml Administered 11/01/19 11:21 Dose 1,000 mls @ ud .ROUTE .STK-MED ONE Thiamine HCl 100 mg 11/01/19 11:18 11/01/19 11:23 Thiamine 200 Mg/2 Ml IV 11/01/19 11:19 100 mg STAT ONE Administration Thiamine HCl Confirm 11/01/19 11:20 Thiamine 200 Mg/2 Ml Administered 11/01/19 11:21 Dose 200 mg .ROUTE .STK-MED ONE Lab/Rad Data: Laboratory Result Diagrams 11/01/19 10:50 11/01/19 10:50 Laboratory Results 11/01/19 11/01/19 11/01/19 Range/Units 12:38 11:34 11:34 WBC (4.0-10.5) K/mm3 RBC (4.1-5.6) M/mm3 Hgb (12.5-18.0) gm/dl Hct (42-50) % MCV (78-100) fl MCH (26-32) pg MCHC (32-36) g/dl RDW (11.5-14.0) % Plt Count (150-450) K/mm3 MPV (7.5-11.0) fl Gran % (36.0-66.0) % Eos # (Auto) (0-0.5) Absolute Lymphs (auto) (1.0-4.6) Absolute Monos (auto) (0.0-1.3) Lymphocytes % (24.0-44.0) % Monocytes % (0.0-12.0) % Eosinophils % (0.00-5.0) % Basophils % (0.0-0.4) % Absolute Granulocytes (1.4-6.9) Basophils # (0-0.4) Sodium (137-145) mmol/L Potassium (3.5-5.1) mmol/L Chloride (98-107) mmol/L Carbon Dioxide (22-30) mmol/L Anion Gap (5-15) MEQ/L BUN (9-20) mg/dL Creatinine (0.66-1.25) mg/dL Estimated GFR ML/MIN Glucose (74-106) mg/dL Lactic Acid 1.2 (0.4-2.0) Calcium (8.4-10.2) mg/dL Total Bilirubin (0.2-1.3) mg/dL AST (17-59) U/L ALT (0-50) U/L Alkaline Phosphatase (38-126) U/L Creatine Kinase (55-170) U/L Serum Total Protein (6.3-8.2) g/dL Albumin (3.5-5.0) g/dL Urine Color YELLOW (YELLOW) Urine Appearance CLOUDY (CLEAR) Urine pH 5.0 (5-6) Ur Specific [place] 1.023 (1.005-1.025) Urine Protein 100 (Negative) Urine Ketones SMALL (NEGATIVE) Urine Blood SMALL (0-5) Branden/ul Urine Nitrite NEGATIVE (NEGATIVE) Urine Bilirubin NEGATIVE (NEGATIVE) Urine Urobilinogen 2 (0-1) mg/dL Ur Leukocyte Esterase NEGATIVE (NEGATIVE) Urine WBC (Auto) 3-5 (0-5) /HPF Urine RBC (Auto) 3-5 (0-2) /HPF U Hyaline Cast (Auto) 6-10 (0-2) /LPF U Epithel Cells (Auto) NONE (FEW) /HPF Urine Bacteria (Auto) NONE (NEGATIVE) /HPF Urine Mucus (Auto) SLIGHT (NEGATIVE) /HPF Urine Culture Reflexed NO (NO) Urine Glucose NEGATIVE (NEGATIVE) mg/dL Salicylates (2-20) mg/dL Urine Opiates Level NEGATIVE (NEGATIVE) Ur Methadone NEGATIVE (NEGATIVE) Acetaminophen (10-30) ug/ml Urine Barbiturates NEGATIVE (NEGATIVE) Ur Phencyclidine (PCP) NEGATIVE (NEGATIVE) Urine Amphetamine POSITIVE (NEGATIVE) U Benzodiazepine Level NEGATIVE (NEGATIVE) Urine Cocaine NEGATIVE (NEGATIVE) Urine Marijuana (THC) POSITIVE (NEGATIVE) Ethyl Alcohol (0-10) mg/dL 11/01/19 11/01/19 11/01/19 Range/Units 11:00 10:50 10:50 WBC 10.9 H (4.0-10.5) K/mm3 RBC 4.90 (4.1-5.6) M/mm3 Hgb 14.9 (12.5-18.0) gm/dl Hct 44.2 (42-50) % MCV 90.2 (78-100) fl MCH 30.4 (26-32) pg MCHC 33.7 (32-36) g/dl RDW 13.7 (11.5-14.0) % Plt Count 221 (150-450) K/mm3 MPV 12.2 H (7.5-11.0) fl Gran % 77.4 H (36.0-66.0) % Eos # (Auto) 0.06 (0-0.5) Absolute Lymphs (auto) 1.26 (1.0-4.6) Absolute Monos (auto) 1.10 (0.0-1.3) Lymphocytes % 11.6 L (24.0-44.0) % Monocytes % 10.1 (0.0-12.0) % Eosinophils % 0.6 (0.00-5.0) % Basophils % 0.3 (0.0-0.4) % Absolute Granulocytes 8.40 H (1.4-6.9) Basophils # 0.03 (0-0.4) Sodium 143 (137-145) mmol/L Potassium 3.7 (3.5-5.1) mmol/L Chloride 102 (98-107) mmol/L Carbon Dioxide 29 (22-30) mmol/L Anion Gap 15.6 H (5-15) MEQ/L BUN 19 (9-20) mg/dL Creatinine 1.17 (0.66-1.25) mg/dL Estimated GFR > 60.0 ML/MIN Glucose 115 H (74-106) mg/dL Lactic Acid (0.4-2.0) Calcium 9.9 (8.4-10.2) mg/dL Total Bilirubin 1.50 H (0.2-1.3) mg/dL AST 37 (17-59) U/L ALT 33 (0-50) U/L Alkaline Phosphatase 122 (38-126) U/L Creatine Kinase 339 H (55-170) U/L Serum Total Protein 9.0 H (6.3-8.2) g/dL Albumin 5.1 H (3.5-5.0) g/dL Urine Color (YELLOW) Urine Appearance (CLEAR) Urine pH (5-6) Ur Specific [place] (1.005-1.025) Urine Protein (Negative) Urine Ketones (NEGATIVE) Urine Blood (0-5) Branden/ul Urine Nitrite (NEGATIVE) Urine Bilirubin (NEGATIVE) Urine Urobilinogen (0-1) mg/dL Ur Leukocyte Esterase (NEGATIVE) Urine WBC (Auto) (0-5) /HPF Urine RBC (Auto) (0-2) /HPF U Hyaline Cast (Auto) (0-2) /LPF U Epithel Cells (Auto) (FEW) /HPF Urine Bacteria (Auto) (NEGATIVE) /HPF Urine Mucus (Auto) (NEGATIVE) /HPF Urine Culture Reflexed (NO) Urine Glucose (NEGATIVE) mg/dL Salicylates < 1.0 L (2-20) mg/dL Urine Opiates Level (NEGATIVE) Ur Methadone (NEGATIVE) Acetaminophen < 10 L (10-30) ug/ml Urine Barbiturates (NEGATIVE) Ur Phencyclidine (PCP) (NEGATIVE) Urine Amphetamine (NEGATIVE) U Benzodiazepine Level (NEGATIVE) Urine Cocaine (NEGATIVE) Urine Marijuana (THC) (NEGATIVE) Ethyl Alcohol < 10 (0-10) mg/dL 11/01/19 Range/Units 10:33 WBC (4.0-10.5) K/mm3 RBC (4.1-5.6) M/mm3 Hgb (12.5-18.0) gm/dl Hct (42-50) % MCV (78-100) fl MCH (26-32) pg MCHC (32-36) g/dl RDW (11.5-14.0) % Plt Count (150-450) K/mm3 MPV (7.5-11.0) fl Gran % (36.0-66.0) % Eos # (Auto) (0-0.5) Absolute Lymphs (auto) (1.0-4.6) Absolute Monos (auto) (0.0-1.3) Lymphocytes % (24.0-44.0) % Monocytes % (0.0-12.0) % Eosinophils % (0.00-5.0) % Basophils % (0.0-0.4) % Absolute Granulocytes (1.4-6.9) Basophils # (0-0.4) Sodium (137-145) mmol/L Potassium (3.5-5.1) mmol/L Chloride (98-107) mmol/L Carbon Dioxide (22-30) mmol/L Anion Gap (5-15) MEQ/L BUN (9-20) mg/dL Creatinine (0.66-1.25) mg/dL Estimated GFR ML/MIN Glucose (74-106) mg/dL Lactic Acid 2.0 (0.4-2.0) Calcium (8.4-10.2) mg/dL Total Bilirubin (0.2-1.3) mg/dL AST (17-59) U/L ALT (0-50) U/L Alkaline Phosphatase (38-126) U/L Creatine Kinase (55-170) U/L Serum Total Protein (6.3-8.2) g/dL Albumin (3.5-5.0) g/dL Urine Color (YELLOW) Urine Appearance (CLEAR) Urine pH (5-6) Ur Specific [place] (1.005-1.025) Urine Protein (Negative) Urine Ketones (NEGATIVE) Urine Blood (0-5) Branden/ul Urine Nitrite (NEGATIVE) Urine Bilirubin (NEGATIVE) Urine Urobilinogen (0-1) mg/dL Ur Leukocyte Esterase (NEGATIVE) Urine WBC (Auto) (0-5) /HPF Urine RBC (Auto) (0-2) /HPF U Hyaline Cast (Auto) (0-2) /LPF U Epithel Cells (Auto) (FEW) /HPF Urine Bacteria (Auto) (NEGATIVE) /HPF Urine Mucus (Auto) (NEGATIVE) /HPF Urine Culture Reflexed (NO) Urine Glucose (NEGATIVE) mg/dL Salicylates (2-20) mg/dL Urine Opiates Level (NEGATIVE) Ur Methadone (NEGATIVE) Acetaminophen (10-30) ug/ml Urine Barbiturates (NEGATIVE) Ur Phencyclidine (PCP) (NEGATIVE) Urine Amphetamine (NEGATIVE) U Benzodiazepine Level (NEGATIVE) Urine Cocaine (NEGATIVE) Urine Marijuana (THC) (NEGATIVE) Ethyl Alcohol (0-10) mg/dL - Progress Progress: improved, re-examined Progress Note: 11/01/19 11:28 The police have placed an Immediate Jail order for this patient due to his expressing to them that he might harm someone and also due to his altered mental condition representing a potential harm to himself . 11/01/19 13:[address] Hardy and will place pt in hospital ICU for observation until mental status clears and then pursue outpt Tx. 11/01/19 13:24 critical obs was required for about 40 minutes of time in ER due to altered mental status and patient could not follow commands and had to be cathed for specimen requiring several people and monitoring of resp status due to altered state in and out of consciousness as well as one on one to prevent rolling uncontrollably out of bed or fliping stretcher by body motions. Discussed with : Cm Will see patient in: hospital (observation) Counseled pt/family regarding: drug and/or alcohol abuse, lab results, diagnosis , need for follow-up - Departure Departure Disposition: Observation Clinical Impression: Polysubstance abuse, Altered mental status Condition: Good Critical Care Time: No Critical Care Time(excluding separately billable procedures): Critical 30-74 mins Referrals: ZAHEER CALDERON [Primary Care Provider] -
[2019-11-01] MEDS ORDERED: Sodium Chloride 0.9% 1000 ML 1,000 ML IV STA (11:11)
[2019-11-01] MEDS ORDERED: THIAMINE 200 MG/2 ML IV ONE (11:18)
[2019-11-01] MEDS ORDERED: THIAMINE 200 MG/2 ML ONE (11:20)
[2019-11-01] MEDS ORDERED: Sodium Chloride 0.9% 1000 ML 1,000 ML ONE (11:20)
[2019-11-01 11:26] LABS: ALBUMIN 5.1 g/dL (3.5-5.0); ALKALINE PHOSPHATASE 122 U/L (38-126); ANION GAP 15.6 MEQ/L (5-15); BASOPHIL % 0.3 % (0.0-0.4); BLOOD UREA NITROGEN 19 mg/dL (9-20); Basophil (Absolute #) 0.03 (0-0.4); CHLORIDE 102 mmol/L (98-107); Calcium 9.9 mg/dL (8.4-10.2); Carbon Dioxide 29 mmol/L (22-30); Creatinine 1 1.17 mg/dL (0.66-1.25); Eosinophil % 0.6 % (0.00-5.0); Eosinophil (Absolute #) 0.06 (0-0.5); Glucose 115 mg/dL (74-106); Hematocrit 44.2 % (42-50); Hemoglobin 14.9 gm/dl (12.5-18.0); Lymphocyte (Absolute #) 1.26 (1.0-4.6); Lymphocytes % 11.6 % (24.0-44.0); Mean Cell Volume 90.2 fl (78-100); Mean Corpuscular Hemoglobin 30.4 pg (26-32); Mean Corpuscular Hgb Concent. 33.7 g/dl (32-36); Mean Platelet Volume 12.2 fl (7.5-11.0); Monocytes % 10.1 % (0.0-12.0); Neutrophil % 77.4 % (36.0-66.0); Platelet Count 221 K/mm3 (150-450); Potassium 3.7 mmol/L (3.5-5.1); Red Cell Distribution Width 13.7 % (11.5-14.0); SGOT/AST 37 U/L (17-59); SGPT/ALT 33 U/L (0-50); SODIUM 143 mmol/L (137-145); White Blood Count 10.9 K/mm3 (4.0-10.5)
[2019-11-01 11:28] LABS: ACETAMINOPHEN < 10 ug/ml (10-30); ETHYL ALCOHOL < 10 mg/dL (0-10); SALICYLATE < 1.0 mg/dL (2-20)
[2019-11-01 11:49] LABS: Appearance CLOUDY (CLEAR); Bilirubin NEGATIVE (NEGATIVE); Blood SMALL Ery/ul (0-5); Glucose NEGATIVE (NEGATIVE); Ketones SMALL (NEGATIVE); Leukocyte Esterase NEGATIVE (NEGATIVE); Mucus SLIGHT /HPF (NEGATIVE); Nitrite NEGATIVE (NEGATIVE); Protein,Urine Dip 100 (Negative); Specific Gravity 1.023 (1.005-1.025); Urobilinogen 2 mg/dL (0-1)
[2019-11-01 11:56] LABS: Barbiturate,Urine NEGATIVE (NEGATIVE); Benzodiazepine,Urine NEGATIVE (NEGATIVE); Cocaine,Urine NEGATIVE (NEGATIVE); Methadone,Urine NEGATIVE (NEGATIVE); Opiate,Urine NEGATIVE (NEGATIVE); PCP,Urine NEGATIVE (NEGATIVE); THC,Urine POSITIVE (NEGATIVE)
[2019-11-01 12:39] LABS: Amphetamine,Urine POSITIVE (NEGATIVE)
[2019-11-01] MEDS ORDERED: Sodium Chloride 0.9% 1000 ML 1,000 ML IV SCH (14:21)
[2019-11-02 04:56] LABS: Absolute Neutrophil Ct (ANC) 5.54 (1.4-6.9); BASOPHIL % 0.4 % (0.0-0.4); Basophil (Absolute #) 0.04 (0-0.4); Eosinophil % 3.8 % (0.00-5.0); Eosinophil (Absolute #) 0.36 (0-0.5); Hematocrit 42.6 % (42-50); Hemoglobin 14.1 gm/dl (12.5-18.0); Lymphocyte (Absolute #) 2.52 (1.0-4.6); Lymphocytes % 26.5 % (24.0-44.0); Mean Cell Volume 91.6 fl (78-100); Mean Corpuscular Hemoglobin 30.3 pg (26-32); Mean Corpuscular Hgb Concent. 33.1 g/dl (32-36); Mean Platelet Volume 12.1 fl (7.5-11.0); Monocyte (Absolute #) 1.04 (0.0-1.3); Monocytes % 10.9 % (0.0-12.0); Neutrophil % 58.4 % (36.0-66.0); Platelet Count 188 K/mm3 (150-450); Red Blood Count 4.65 M/mm3 (4.1-5.6); Red Cell Distribution Width 13.6 % (11.5-14.0); White Blood Count 9.5 K/mm3 (4.0-10.5)
[2019-11-02 05:18] LABS: ALKALINE PHOSPHATASE 97 U/L (38-126); BLOOD UREA NITROGEN 21 mg/dL (9-20); CHLORIDE 105 mmol/L (98-107); Calcium 8.9 mg/dL (8.4-10.2); Carbon Dioxide 23 mmol/L (22-30); Creatinine 1 1.01 mg/dL (0.66-1.25); Glucose 65 mg/dL (74-106); Potassium 3.9 mmol/L (3.5-5.1); SGOT/AST 37 U/L (17-59); SGPT/ALT 27 U/L (0-50); SODIUM 140 mmol/L (137-145)
[2019-11-02] MEDS ORDERED: D50W 50 ml Abboject IV ONE (05:53)
[2019-11-02 07:34] VITALS: BP 114/64; O2SAT 97
[2019-11-02 08:43] VITALS: PULSE 87
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
== END 2019-11-02 11:13 ==
LOC: ED 10:03 → ICU 14:05
PROVIDERS: ADMIT Family Medicine; ATTEND Family Medicine
DX: R41.82 Altered mental status, unspecified (principal); F19.10 Other psychoactive substance abuse, uncomplicated; F48.8 Other specified nonpsychotic mental disorders; F17.200 Nicotine dependence, unspecified, uncomplicated
CPT/HCPCS: 36415; 80053; 80307; 81001; 82550; 83605; 85025; 93005; 93268; 94762; 96374; 99291; G0378; G0480; G0481; P9612; 36000; 94760; 99285

== ENCOUNTER 2020-01-10 11:17 | Emergency (ER) | payer OTHER ==
[2020-01-10] MEDS ORDERED: Sodium Chloride 0.9% 1000 ML 1,000 ML IV STA (11:21)
[2020-01-10 11:40] LABS: Hematocrit 43.8 % (42-50); Hemoglobin 14.2 gm/dl (12.5-18.0); Mean Cell Volume 93.8 fl (78-100); Mean Corpuscular Hemoglobin 30.4 pg (26-32); Mean Corpuscular Hgb Concent. 32.4 g/dl (32-36); Mean Platelet Volume 12.7 fl (7.5-11.0); Platelet Count 120 K/mm3 (150-450); Red Blood Count 4.67 M/mm3 (4.1-5.6); Red Cell Distribution Width 13.6 % (11.5-14.0); White Blood Count 5.3 K/mm3 (4.0-10.5)
[2020-01-10 11:56] LABS: ALBUMIN 3.9 g/dL (3.5-5.0); ALKALINE PHOSPHATASE 99 U/L (38-126); ANION GAP 11.5 MEQ/L (5-15); BLOOD UREA NITROGEN 15 mg/dL (9-20); CHLORIDE 105 mmol/L (98-107); Calcium 8.6 mg/dL (8.4-10.2); Carbon Dioxide 27 mmol/L (22-30); Creatinine 1 0.95 mg/dL (0.66-1.25); Glucose 100 mg/dL (74-106); Potassium 4.5 mmol/L (3.5-5.1); SGOT/AST 31 U/L (17-59); SGPT/ALT 22 U/L (0-50); SODIUM 138 mmol/L (137-145); Total Protein 6.7 g/dL (6.3-8.2)
[2020-01-10 11:57] LABS: ETHYL ALCOHOL < 10 mg/dL (0-10)
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
[2020-01-10 13:52] LABS: BAND 1 % (0.0-2.0); Eosinophil 1 % (0.00-3.0); Lymphocytes 18 % (24-44); Monocyte 10 % (0.0-12.0); Neutrophils 70 % (36.-66.); Total Cells Counted 100
[2020-01-10 13:53] LABS: Platelet Estimate DECREASED (NORMAL)
[2020-01-10 14:19] VITALS: BP 100/66; PULSE 79; O2SAT 96
[2020-01-10 15:14] LABS: Appearance CLEAR (CLEAR); Bilirubin NEGATIVE (NEGATIVE); Blood SMALL Ery/ul (0-5); Glucose NEGATIVE (NEGATIVE); Ketones NEGATIVE (NEGATIVE); Leukocyte Esterase NEGATIVE (NEGATIVE); Mucus SLIGHT /HPF (NEGATIVE); Nitrite NEGATIVE (NEGATIVE); Protein,Urine Dip NEGATIVE (Negative); Specific Gravity 1.011 (1.005-1.025); Urobilinogen NEGATIVE mg/dL (0-1); WBC 0-2 /HPF (0-5)
[2020-01-10 15:28] LABS: Amphetamine,Urine NEGATIVE (NEGATIVE); Barbiturate,Urine NEGATIVE (NEGATIVE); Benzodiazepine,Urine NEGATIVE (NEGATIVE); Cocaine,Urine NEGATIVE (NEGATIVE); Methadone,Urine NEGATIVE (NEGATIVE); Opiate,Urine NEGATIVE (NEGATIVE); PCP,Urine NEGATIVE (NEGATIVE); THC,Urine NEGATIVE (NEGATIVE)
--- NOTE | 2020-01-10 20:09 | XRAY ---
Indication: Unresponsive. Multiple contiguous axial images obtained through the head without contrast. Comparison: December 12, 2014. Continued normal appearing brain parenchyma, ventricles, and bony calvarium. Visualized paranasal sinuses and mastoid air cells are clear. Impression: Again normal CT head without contrast exam. Comment: Preliminary interpretation was made by [facility]. No critical discrepancy.
--- NOTE | 2020-01-10 20:09 | XRAY ---
Indication: Unresponsive. Comparison: December 12, 2018. Portable chest remains hyperinflated and clear with incidental tiny calcified granulomas. Heart is not enlarged. Bony thorax intact. No new/acute findings.
== END 2020-01-10 13:50 | disposition home or self-care (01) ==
LOC: ED 11:17
DX: R41.82 Altered mental status, unspecified (principal)
CPT/HCPCS: 36415; 70450; 71045; 80053; 80307; 81001; 85025; 87086; 96360; 99284; G0480; P9612

== ENCOUNTER 2020-01-11 22:47 | Emergency (ER) | payer OTHER ==
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
[2020-01-11 22:55] VITALS: O2SAT 97
[2020-01-11 23:16] VITALS: BP 123/83; PULSE 110
== END 2020-01-11 23:14 | disposition home or self-care (01) ==
LOC: ED 22:47
DX: Z02.89 Encounter for other administrative examinations (principal)
CPT/HCPCS: 99283

== ENCOUNTER 2020-01-21 22:49 | Emergency (ER) | payer OTHER ==
[2020-01-21] MEDS ORDERED: Sodium Chloride 0.9% 1000 ML 1,000 ML IV SCH (23:00)
[2020-01-21 23:22] VITALS: O2SAT 100
[2020-01-21] MEDS ORDERED: Sodium Chloride 0.9% 1000 ML 1,000 ML ONE (23:27)
--- NOTE | 2020-01-21 23:44 | ERPHSYRPT ---
- History of Present Illness Time Seen by Provider: 01/21/20 23:00 Source: police Exam Limitations: other (patient somewhat somnolent assuming post ictal.) Patient Subjective Stated Complaint: officer states that pt had seizure, officer states that pt had tonic clonic seizure, officer states that after review of video, officer states that seizure lasted 10-15 minutes Triage Nursing Assessment: pt came into the er via ambulance, pt is resevered and not answering questions, c/o seizure, pupils 3 mm and PERRL, economic consultant strong and equal, clear lung sounds, no incontence present, vital wnl Physician History: Patient is a 34-year-old male inmate presents to our ED via ambulance for evaluation of a seizure that occurred approximately half hour prior to arrival.. Camera surveillance footage reveals patient had a tonic-clonic seizure that lasted approximately 10 to 15 minutes. Patient has a history of seizures. His last seizure was on January 10, 2020. Patient is currently not on seizure medication. Patient is providing little information to this HPI due to somnolence. Possibly postictal. No chest pain or shortness of breath. No nausea or vomiting. There is no incontinence. No tongue biting. Symptoms are mild to moderate in intensity. No specific worsening improving factors. Police/patient voiced no other complaints concerns at this time. Timing/Duration: today Severity: moderate Modifying Factors: Improves With: nothing Associated Symptoms: No nausea, No vomiting, No abdominal pain, No shortness of breath, No heartburn, No diaphoresis, No cough, No chills, No fever, No headaches, No loss of appetite, No malaise, No rash, No syncope Allergies/Adverse Reactions: naproxen [From Naprosyn] Adverse Reaction (Verified 01/21/20 22:56) pt refuses to answer Home Medications: No Reportable Medications [No Reported Medications] 09/22/19 [History] Hx Tetanus, Diphtheria Vaccination/Date Given: Yes Hx Influenza Vaccination/Date Given: No Hx Pneumococcal Vaccination/Date Given: No Travel Risk - International Travel Have you traveled outside of the country in past 3 weeks: No - Coronavirus Screening Close contact with a COVID-19 positive Pt in past 14-21 Days: No - Review of Systems All Other Systems: Unable due to condition - Past Medical History Pertinent Past Medical History: Yes Neurological History: Seizures ENT History: No Pertinent History Cardiac History: No Pertinent History Respiratory History: No Pertinent History Endocrine Medical History: No Pertinent History Musculoskeletal History: Other GI Medical History: No Pertinent History History: No Pertinent History Psycho-Social History: Anxiety, Depression Male Reproductive Disorders: No Pertinent History Other Medical History: shattered left foot in 2010, broken wrist during childhood - Past Surgical History Past Surgical History: No Neuro Surgical History: No Pertinent History Cardiac: No Pertinent History Respiratory: No Pertinent History Gastrointestinal: No Pertinent History Genitourinary: No Pertinent History Musculoskeletal: No Pertinent History Male Surgical History: No Pertinent History - Social History Smoking Status: Current every day smoker How long have you smoked: 20 years Exposure to second hand smoke: No Drug Use: marijuana, methamphetamines Patient Lives Alone: No Significant Family History: no pertinent family hx - Nursing Vital Signs Nursing Vital Signs: Initial Vital Signs Temperature 98.3 F 01/21/20 22:58 Pulse Rate 92 H 01/21/20 22:58 Blood Pressure 143/95 01/21/20 22:58 O2 Sat by Pulse Oximetry 100 01/21/20 22:58 - Physical Exam General Appearance: no apparent distress, alert Eye Exam: PERRL/EOMI, eyes nml inspection Ears, Nose, Throat Exam: normal ENT inspection, TMs normal, pharynx normal, moist mucous membranes Neck Exam: normal inspection, non-tender, supple, full range of motion Respiratory Exam: normal breath sounds, lungs clear, No respiratory distress Cardiovascular Exam: regular rate/rhythm, normal heart sounds, normal peripheral pulses Gastrointestinal/Abdomen Exam: soft, normal bowel sounds, No tenderness, No mass Back Exam: normal inspection, normal range of motion, No CVA tenderness, No vertebral tenderness Extremity Exam: normal inspection, normal range of motion, pelvis stable Neurologic Exam: alert, oriented x 3, cooperative, normal mood/affect, nml cerebellar function, nml station & gait, sensation nml, No motor deficits Skin Exam: normal color, warm, dry, No rash Lymphatic Exam: No adenopathy SpO2 Interpretation: normal SpO2: 100 O2 Delivery: Room Air - Course EKG Interpreted by Me: RATE (94), Sinus Rhythm, NORMAL AXIS, NORMAL INTERVALS - CT Exams Head CT Interpretation: Tele-radiologist Report (No acute intracranial abnormality.) Ordered Tests: Active Orders 24 hr Category Date Time Status [place] STAT Care 01/21/20 22:54 Active EKG-ER Only STAT Care 01/21/20 22:53 Active IV Insertion STAT Care 01/21/20 22:53 Active Pulse Oximetry (ED) STAT Care 01/21/20 22:53 Active HEAD WITHOUT CONTRAST [CT] Stat Exams 01/21/20 22:54 Taken ACETAMINOPHEN Stat Lab 01/21/20 23:50 Completed CBC W DIFF Stat Lab 01/21/20 23:50 Completed CMP Stat Lab 01/21/20 23:50 Completed ETHYL ALCOHOL Stat Lab 01/21/20 23:50 Completed Lactic Acid Stat Lab 01/21/20 23:36 Completed MAGNESIUM Stat Lab 01/21/20 23:50 Completed SALICYLATE Stat Lab 01/21/20 23:50 Completed UA W/RFX UR CULTURE Stat Lab 01/21/20 11:40 Completed Urine Triage Profile Stat Lab 01/21/20 11:40 Completed Medication Summary Generic Name Dose Route Start Last Admin Trade Name Freq PRN Reason Stop Dose Admin Sodium Chloride 1,000 mls @ 100 mls/hr 01/21/20 23:00 01/21/20 23:28 Sodium Chloride 0.9% 1000 Ml IV 02/20/20 22:59 100 mls/hr .Q10H NOHEMI Administration Sodium Chloride 500 mls @ 500 mls/hr 01/21/20 23:51 01/22/20 00:38 Sodium Chloride 0.9% 500 Ml IV 01/22/20 00:50 Not Given .Q1H ONE Lab/Rad Data: Laboratory Result Diagrams 01/21/20 23:50 01/21/20 23:50 Laboratory Results 01/21/20 01/21/20 01/21/20 Range/Units 23:50 23:50 23:36 WBC 10.2 (4.0-10.5) K/mm3 RBC 4.70 (4.1-5.6) M/mm3 Hgb 14.3 (12.5-18.0) gm/dl Hct 43.1 (42-50) % MCV 91.7 (78-100) fl MCH 30.4 (26-32) pg MCHC 33.2 (32-36) g/dl RDW 13.1 (11.5-14.0) % Plt Count 228 (150-450) K/mm3 MPV 12.0 H (7.5-11.0) fl Gran % 59.1 (36.0-66.0) % Eos # (Auto) 0.31 (0-0.5) Absolute Lymphs (auto) 2.68 (1.0-4.6) Absolute Monos (auto) 1.14 (0.0-1.3) Lymphocytes % 26.2 (24.0-44.0) % Monocytes % 11.2 (0.0-12.0) % Eosinophils % 3.0 (0.00-5.0) % Basophils % 0.5 (0.0-0.4) % Absolute Granulocytes 6.04 (1.4-6.9) Basophils # 0.05 (0-0.4) Sodium 137 (137-145) mmol/L Potassium 4.3 (3.5-5.1) mmol/L Chloride 99 (98-107) mmol/L Carbon Dioxide 30 (22-30) mmol/L Anion Gap 12.9 (5-15) MEQ/L BUN 13 (9-20) mg/dL Creatinine 1.05 (0.66-1.25) mg/dL Estimated GFR > 60.0 ML/MIN Glucose 113 H (74-106) mg/dL Lactic Acid 1.6 (0.4-2.0) Calcium 9.4 (8.4-10.2) mg/dL Magnesium 2.3 (1.6-2.3) mg/dL Total Bilirubin 0.50 (0.2-1.3) mg/dL AST 39 (17-59) U/L ALT 25 (0-50) U/L Alkaline Phosphatase 125 (38-126) U/L Serum Total Protein 7.4 (6.3-8.2) g/dL Albumin 4.6 (3.5-5.0) g/dL Urine Color (YELLOW) Urine Appearance (CLEAR) Urine pH (5-6) Ur Specific [place] (1.005-1.025) Urine Protein (Negative) Urine Ketones (NEGATIVE) Urine Blood (0-5) Branden/ul Urine Nitrite (NEGATIVE) Urine Bilirubin (NEGATIVE) Urine Urobilinogen (0-1) mg/dL Ur Leukocyte Esterase (NEGATIVE) Urine WBC (Auto) (0-5) /HPF Urine RBC (Auto) (0-2) /HPF U Epithel Cells (Auto) (FEW) /HPF Urine Bacteria (Auto) (NEGATIVE) /HPF Urine Culture Reflexed (NO) Urine Glucose (NEGATIVE) mg/dL Salicylates < 1.0 L (2-20) mg/dL Urine Opiates Level (NEGATIVE) Ur Methadone (NEGATIVE) Acetaminophen < 10 L (10-30) ug/ml Urine Barbiturates (NEGATIVE) Ur Phencyclidine (PCP) (NEGATIVE) Urine Amphetamine (NEGATIVE) U Benzodiazepine Level (NEGATIVE) Urine Cocaine (NEGATIVE) Urine Marijuana (THC) (NEGATIVE) Ethyl Alcohol < 10 (0-10) mg/dL 01/21/20 01/21/20 Range/Units 11:40 11:40 WBC (4.0-10.5) K/mm3 RBC (4.1-5.6) M/mm3 Hgb (12.5-18.0) gm/dl Hct (42-50) % MCV (78-100) fl MCH (26-32) pg MCHC (32-36) g/dl RDW (11.5-14.0) % Plt Count (150-450) K/mm3 MPV (7.5-11.0) fl Gran % (36.0-66.0) % Eos # (Auto) (0-0.5) Absolute Lymphs (auto) (1.0-4.6) Absolute Monos (auto) (0.0-1.3) Lymphocytes % (24.0-44.0) % Monocytes % (0.0-12.0) % Eosinophils % (0.00-5.0) % Basophils % (0.0-0.4) % Absolute Granulocytes (1.4-6.9) Basophils # (0-0.4) Sodium (137-145) mmol/L Potassium (3.5-5.1) mmol/L Chloride (98-107) mmol/L Carbon Dioxide (22-30) mmol/L Anion Gap (5-15) MEQ/L BUN (9-20) mg/dL Creatinine (0.66-1.25) mg/dL Estimated GFR ML/MIN Glucose (74-106) mg/dL Lactic Acid (0.4-2.0) Calcium (8.4-10.2) mg/dL Magnesium (1.6-2.3) mg/dL Total Bilirubin (0.2-1.3) mg/dL AST (17-59) U/L ALT (0-50) U/L Alkaline Phosphatase (38-126) U/L Serum Total Protein (6.3-8.2) g/dL Albumin (3.5-5.0) g/dL Urine Color YELLOW (YELLOW) Urine Appearance CLEAR (CLEAR) Urine pH 7.0 (5-6) Ur Specific [place] 1.008 (1.005-1.025) Urine Protein NEGATIVE (Negative) Urine Ketones NEGATIVE (NEGATIVE) Urine Blood NEGATIVE (0-5) Branden/ul Urine Nitrite NEGATIVE (NEGATIVE) Urine Bilirubin NEGATIVE (NEGATIVE) Urine Urobilinogen NEGATIVE (0-1) mg/dL Ur Leukocyte Esterase NEGATIVE (NEGATIVE) Urine WBC (Auto) 0-2 (0-5) /HPF Urine RBC (Auto) 0-2 (0-2) /HPF U Epithel Cells (Auto) NONE (FEW) /HPF Urine Bacteria (Auto) NONE SEEN (NEGATIVE) /HPF Urine Culture Reflexed NO (NO) Urine Glucose NEGATIVE (NEGATIVE) mg/dL Salicylates (2-20) mg/dL Urine Opiates Level NEGATIVE (NEGATIVE) Ur Methadone NEGATIVE (NEGATIVE) Acetaminophen (10-30) ug/ml Urine Barbiturates NEGATIVE (NEGATIVE) Ur Phencyclidine (PCP) NEGATIVE (NEGATIVE) Urine Amphetamine NEGATIVE (NEGATIVE) U Benzodiazepine Level NEGATIVE (NEGATIVE) Urine Cocaine NEGATIVE (NEGATIVE) Urine Marijuana (THC) NEGATIVE (NEGATIVE) Ethyl Alcohol (0-10) mg/dL - Progress Progress: improved Progress Note: 01/22/20 00:40 Patient reassessed. He is cooperative. Neuro exam within normal limits. Work- up nonremarkable. Medical screening examination negative. No evidence for seizure. Vital stable. CT head negative. Lab work-up negative. Toxicology screen negative. Lactic acid within normal limits. We will discharge patient to police custody. All questions were answered. Patient voiced no other complaints concerns at this time. 01/22/20 00:42 Counseled pt/family regarding: lab results, diagnosis, rad results - Departure Departure Disposition: Nursing Home/Custodial Clinical Impression: Encounter for medical screening examination Condition: Good Critical Care Time: No Referrals: ZAHEER CALDERON [Primary Care Provider] - Additional Instructions: Discharge/Care Plan HO PRIEST JR was seen on 01/22/20 in the Emergency Room. The patient was counseled regarding Diagnosis,Lab results, Imaging studies, need for follow up and when to return to the Emergency Room. Prescriptions given: Discharge Note I have spoken with the patient and/or caregivers. I have explained the patient's condition, diagnosis and treatment plan based on the information available to me at this time. I have answered the patient's and/or caregiver's questions and addressed any concerns. The patient and/or caregivers have as good understanding of the patient's diagnosis, condition and treatment plan as can be expected at this point. The vital signs have been stable. The patient's condition is stable and appropriate for discharge from the emergency department. The patient will pursue further outpatient evaluation with the primary care physician or other designated or consulting physician as outlined in the discharge instructions. The patient and/or caregivers are agreeable to this plan of care and follow-up instructions have been explained in detail. The patient and/or caregivers have received these instruction. The patient/and or caregivers are aware that any significant change in condition or worsening of symptoms should prompt an immediate return to this or the closest emergency department or call 911.
[2020-01-21 23:51] LABS: Appearance CLEAR (CLEAR); Bilirubin NEGATIVE (NEGATIVE); Blood NEGATIVE Ery/ul (0-5); Glucose NEGATIVE (NEGATIVE); Ketones NEGATIVE (NEGATIVE); Leukocyte Esterase NEGATIVE (NEGATIVE); Nitrite NEGATIVE (NEGATIVE); Protein,Urine Dip NEGATIVE (Negative); RBC 0-2 /HPF (0-2); Specific Gravity 1.008 (1.005-1.025); Urobilinogen NEGATIVE mg/dL (0-1); WBC 0-2 /HPF (0-5)
[2020-01-21] MEDS ORDERED: Sodium Chloride 0.9% 500 ML 500 ML IV ONE (23:51)
[2020-01-21 23:52] LABS: Bacteria NONE SEEN /HPF (NEGATIVE)
[2020-01-21 23:53] LABS: Absolute Neutrophil Ct (ANC) 6.04 (1.4-6.9); BASOPHIL % 0.5 % (0.0-0.4); Basophil (Absolute #) 0.05 (0-0.4); Eosinophil (Absolute #) 0.31 (0-0.5); Hematocrit 43.1 % (42-50); Hemoglobin 14.3 gm/dl (12.5-18.0); Lymphocyte (Absolute #) 2.68 (1.0-4.6); Lymphocytes % 26.2 % (24.0-44.0); Mean Cell Volume 91.7 fl (78-100); Mean Corpuscular Hemoglobin 30.4 pg (26-32); Mean Corpuscular Hgb Concent. 33.2 g/dl (32-36); Monocyte (Absolute #) 1.14 (0.0-1.3); Monocytes % 11.2 % (0.0-12.0); Neutrophil % 59.1 % (36.0-66.0); Platelet Count 228 K/mm3 (150-450); Red Cell Distribution Width 13.1 % (11.5-14.0); White Blood Count 10.2 K/mm3 (4.0-10.5)
[2020-01-22 00:04] LABS: Amphetamine,Urine NEGATIVE (NEGATIVE); Barbiturate,Urine NEGATIVE (NEGATIVE); Benzodiazepine,Urine NEGATIVE (NEGATIVE); Cocaine,Urine NEGATIVE (NEGATIVE); Methadone,Urine NEGATIVE (NEGATIVE); Opiate,Urine NEGATIVE (NEGATIVE); PCP,Urine NEGATIVE (NEGATIVE); THC,Urine NEGATIVE (NEGATIVE)
[2020-01-22 00:24] LABS: ALBUMIN 4.6 g/dL (3.5-5.0); ALKALINE PHOSPHATASE 125 U/L (38-126); ANION GAP 12.9 MEQ/L (5-15); BLOOD UREA NITROGEN 13 mg/dL (9-20); CHLORIDE 99 mmol/L (98-107); Calcium 9.4 mg/dL (8.4-10.2); Carbon Dioxide 30 mmol/L (22-30); Creatinine 1 1.05 mg/dL (0.66-1.25); Glucose 113 mg/dL (74-106); MAGNESIUM 2.3 mg/dL (1.6-2.3); Potassium 4.3 mmol/L (3.5-5.1); SGOT/AST 39 U/L (17-59); SGPT/ALT 25 U/L (0-50); SODIUM 137 mmol/L (137-145); Total Protein 7.4 g/dL (6.3-8.2)
[2020-01-22 00:26] LABS: ACETAMINOPHEN < 10 ug/ml (10-30); ETHYL ALCOHOL < 10 mg/dL (0-10); SALICYLATE < 1.0 mg/dL (2-20)
[2020-01-22 00:51] VITALS: BP 127/92; PULSE 93
--- NOTE | 2020-01-22 09:32 | XRAY ---
Indication: Right frontal head injury following seizure. Multiple contiguous axial images obtained through the head without contrast. Comparison: January 10, 2020. Again normal appearing brain parenchyma, ventricles, and bony calvarium. Visualized paranasal sinuses and mastoid air cells are clear. Impression: Continued normal CT head without contrast exam. Comment: Preliminary interpretation was made by [facility]. No critical discrepancy.
== END 2020-01-22 00:52 | disposition home or self-care (01) ==
LOC: ED 22:49
DX: Z76.89 Persons encountering health services in other specified circumstances (principal)
CPT/HCPCS: 36415; 70450; 80053; 80307; 81001; 83605; 83735; 85025; 93005; 93041; 94760; 99284; G0480

== ENCOUNTER 2020-03-17 07:01 | Emergency (ER) | payer OTHER ==
[2020-03-17] MEDS ORDERED: TYLENOL 325 MG PO STA (07:10)
[2020-03-17 07:15] VITALS: BP 147/131; PULSE 113
[2020-03-17] MEDS ORDERED: TYLENOL 325 MG ONE (07:16)
--- NOTE | 2020-03-17 07:18 | ERPHSYRPT ---
- History of Present Illness Time Seen by Provider: 03/17/20 07:10 Source: patient Exam Limitations: no limitations Physician History: Patient is a 34-year-old male presents to our ED with pain to the radial side of his wrist and distal third of forearm. Patient was working at the [employer] performing repetitive lifting motions when pain started. Pain has been ongoing. No trauma. Pain described as an ache that is localized. No radiation. Pain worse with palpation movement and abduction of his thumb. Pain improved with rest. Patient has a splint that he has been using that improves his symptoms. Symptoms are mild to moderate in intensity. No associated numbness tingling or weakness. Patient voices no other complaints at this time. Occurred: yesterday Method of Injury: other (Repetitive motion) Quality: constant Severity of Pain-Max: moderate Severity of Pain-Current: mild Extremities Pain Location: wrist: left (Lateral aspect of left wrist and distal third of left forearm) Modifying Factors: Improves With: movement, rest Associated Symptoms: none Allergies/Adverse Reactions: naproxen [From Naprosyn] Adverse Reaction (Verified 03/17/20 07:15) kidneys shut down Home Medications: No Reportable Medications [No Reported Medications] 09/22/19 [History] Hx Tetanus, Diphtheria Vaccination/Date Given: Yes Hx Influenza Vaccination/Date Given: No Hx Pneumococcal Vaccination/Date Given: No - Review of Systems Constitutional: No Symptoms, No Fever, No Chills Eyes: No Symptoms Ears, Nose, & Throat: No Symptoms Respiratory: No Symptoms, No Cough, No Dyspnea Cardiac: No Symptoms, No Chest Pain, No Edema, No Syncope Abdominal/Gastrointestinal: No Symptoms, No Abdominal Pain, No Nausea, No Vomiting, No Diarrhea Genitourinary Symptoms: No Symptoms, No Dysuria Musculoskeletal: No Symptoms, No Back Pain, No Neck Pain Skin: No Symptoms, No Rash Neurological: No Symptoms, No Dizziness, No Focal Weakness, No Sensory Changes Psychological: No Symptoms Endocrine: No Symptoms Hematologic/Lymphatic: No Symptoms Immunological/Allergic: No Symptoms All Other Systems: Reviewed and Negative - Past Medical History Pertinent Past Medical History: Yes Neurological History: Seizures ENT History: No Pertinent History Cardiac History: No Pertinent History Respiratory History: No Pertinent History Endocrine Medical History: No Pertinent History Musculoskeletal History: Other GI Medical History: No Pertinent History History: No Pertinent History Psycho-Social History: Anxiety, Depression Male Reproductive Disorders: No Pertinent History Other Medical History: shattered left foot in 2010, broken wrist during chil dhood - Past Surgical History Past Surgical History: No Neuro Surgical History: No Pertinent History Cardiac: No Pertinent History Respiratory: No Pertinent History Gastrointestinal: No Pertinent History Genitourinary: No Pertinent History Musculoskeletal: No Pertinent History Male Surgical History: No Pertinent History - Social History Smoking Status: Current every day smoker How long have you smoked: 20 years Exposure to second hand smoke: No Drug Use: marijuana, methamphetamines Patient Lives Alone: No Significant Family History: no pertinent family hx - Nursing Vital Signs Nursing Vital Signs: Initial Vital Signs Temperature 99.0 F 03/17/20 07:07 Pulse Rate 113 H 03/17/20 07:07 Blood Pressure 147/131 03/17/20 07:07 O2 Sat by Pulse Oximetry 99 03/17/20 07:07 Pain Scale Pain Intensity 8 - Physical Exam General Appearance: no apparent distress, alert Eyes, Ears, Nose, Throat Exam: normal ENT inspection, moist mucous membranes Neck Exam: normal inspection, non-tender, supple Cardiovascular/Respiratory Exam: chest non-tender, normal breath sounds, regular rate/rhythm, no respiratory distress Abdominal Exam: non-tender, soft, No guarding Back Exam: normal inspection, normal range of motion, No vertebral tenderness Shoulder Exam: normal inspection, non-tender, no evidence of injury, normal ROM Elbow/Forearm Exam: normal inspection, non-tender, no evidence of injury, normal ROM Wrist Exam: normal inspection, non-tender, no evidence of injury, normal ROM (Tenderness to palpation along the lateral distal third of the forearm consistent with de Quervain's tenosynovitis.), No abrasions, No asymmetry, No deformity, No ecchymosis, No limited ROM, No mass Hand Exam: normal inspection, non-tender, no evidence of injury, soft tissue tenderness, No abrasions, No asymmetry, No bone tenderness, No laceration Neuro/Tendon Exam: normal sensation, normal motor functions Mental Status Exam: alert, oriented x 3, cooperative Skin Exam: normal color, warm, dry SpO2 Interpretation: normal SpO2: 98 O2 Delivery: Room Air - Course Nursing assessment & vital signs reviewed: Yes - Radiology Exams Forearm X-ray Interpretation: Teleradiologist Report (No fracture or dislocation. No acute processes observed.) Ordered Tests: Active Orders 24 hr Category Date Time Status [facility] Stat Exams 03/17/20 07:11 Taken Medication Summary Discontinued Medications Generic Name Dose Route Start Last Admin Trade Name Shelia PRN Reason Stop Dose Admin Acetaminophen 975 mg 03/17/20 07:10 03/17/20 07:17 Tylenol 325 Mg PO 03/17/20 07:11 975 mg STAT STA Administration Acetaminophen Confirm 03/17/20 07:16 Tylenol 325 Mg Administered 03/17/20 07:17 Dose 975 mg .ROUTE .[place] ONE - Progress Progress: improved Progress Note: 03/17/20 07:44 Patient reassessed. Pain improved. Patient has a wrist splint that he is currently using for comfort. No trauma. Pain likely due to repetitive motion. De Quervain's tenosynovitis likely diagnosis. X-ray negative for acute pathology. Patient to follow-up with his primary care doctor within 48 hours for reevaluation. Patient states is ready for discharge. He voices no other complaints or concerns at this time. Counseled pt/family regarding: diagnosis, need for follow-up, rad results - Departure Departure Disposition: Home Clinical Impression: De Quervain's disease (tenosynovitis) Condition: Stable Critical Care Time: No Referrals: SPENCER CUELLAR [ACTIVE STAFF] - Instructions: Overuse Injuries, de Quervain Tendinopathy Additional Instructions: Discharge/Care Plan CEM HO GO was seen on 03/17/20 in the Emergency Room. The patient was counseled regarding Diagnosis,Lab results, Imaging studies, need for follow up and when to return to the Emergency Room. Prescriptions given: Discharge Note I have spoken with the patient and/or caregivers. I have explained the patient's condition, diagnosis and treatment plan based on the information available to me at this time. I have answered the patient's and/or caregiver's questions and addressed any concerns. The patient and/or caregivers have as good understanding of the patient's diagnosis, condition and treatment plan as can be expected at this point. The vital signs have been stable. The patient's condition is stable and appropriate for discharge from the emergency department. The patient will pursue further outpatient evaluation with the primary care physician or other designated or consulting physician as outlined in the discharge instructions. The patient and/or caregivers are agreeable to this plan of care and follow-up instructions have been explained in detail. The patient and/or caregivers have received these instruction. The patient/and or caregivers are aware that any significant change in condition or worsening of symptoms should prompt an immediate return to this or the closest emergency department or call 911.
[2020-03-17 07:20] VITALS: O2SAT 98
--- NOTE | 2020-03-17 08:43 | XRAY ---
Indication: Pain following strain injury 2 days ago. Finger numbness. Comparison: None 2 view left forearm obtained. No bony, articular, or soft tissue abnormalities.
== END 2020-03-17 07:55 | disposition home or self-care (01) ==
LOC: ED 07:01
DX: M65.4 Radial styloid tenosynovitis [de Quervain] (principal)
CPT/HCPCS: 73090; 99283; A9270-GY

== ENCOUNTER 2020-04-08 10:57 | Emergency (ER) | payer OTHER ==
--- NOTE | 2020-04-08 11:00 | ERPHSYRPT ---
- History of Present Illness Time Seen by Provider: 04/08/20 10:59 Source: patient Exam Limitations: no limitations Physician History: This is a 34-year-old right-handed white male who presents with lacerations of digits 1 2 and 3 on the right hand while using a saw. Occurred prior to arrival. Patient saw the blood and had a vasovagal response. Patient does not have any chest pain, he did not hit his head. His tetanus status is up-to-date. Timing/Duration: today Severity: mild Modifying Factors: Improves With: nothing Associated Symptoms: denies symptoms Allergies/Adverse Reactions: naproxen [From Naprosyn] Adverse Reaction (Verified 04/08/20 11:04) kidneys shut down Hx Tetanus, Diphtheria Vaccination/Date Given: Yes Hx Influenza Vaccination/Date Given: No Hx Pneumococcal Vaccination/Date Given: No Travel Risk - International Travel Have you traveled outside of the country in past 3 weeks: No - Coronavirus Screening Are you exhibiting any of the following symptoms?: No Close contact with a COVID-19 positive Pt in past 14-21 Days: No - Review of Systems Constitutional: No Symptoms Eyes: No Symptoms Ears, Nose, & Throat: No Symptoms Respiratory: No Symptoms Cardiac: No Symptoms Abdominal/Gastrointestinal: No Symptoms Genitourinary Symptoms: No Symptoms Musculoskeletal: No Symptoms Skin: Other (Serrations to right hand digits 1-3) Neurological: No Symptoms Psychological: No Symptoms Endocrine: No Symptoms Hematologic/Lymphatic: No Symptoms Immunological/Allergic: No Symptoms All Other Systems: Reviewed and Negative - Past Medical History Pertinent Past Medical History: Yes Neurological History: Seizures ENT History: No Pertinent History Cardiac History: No Pertinent History Respiratory History: No Pertinent History Endocrine Medical History: No Pertinent History Musculoskeletal History: Other GI Medical History: No Pertinent History History: No Pertinent History Psycho-Social History: Anxiety, Depression Male Reproductive Disorders: No Pertinent History Other Medical History: shattered left foot in 2010, broken wrist during childhood - Past Surgical History Past Surgical History: No Neuro Surgical History: No Pertinent History Cardiac: No Pertinent History Respiratory: No Pertinent History Gastrointestinal: No Pertinent History Genitourinary: No Pertinent History Musculoskeletal: No Pertinent History Male Surgical History: No Pertinent History - Social History Smoking Status: Current every day smoker How long have you smoked: 20 years Exposure to second hand smoke: No Drug Use: marijuana, methamphetamines Patient Lives Alone: No Significant Family History: no pertinent family hx - Nursing Vital Signs Nursing Vital Signs: Initial Vital Signs Temperature 98.0 F 04/08/20 11:05 Pulse Rate 62 04/08/20 11:05 Respiratory Rate 18 04/08/20 11:05 Blood Pressure 102/83 04/08/20 11:05 O2 Sat by Pulse Oximetry 99 04/08/20 11:05 Pain Scale Pain Intensity 10 - Physical Exam General Appearance: no apparent distress, alert, anxiety Eye Exam: PERRL/EOMI, eyes nml inspection Ears, Nose, Throat Exam: normal ENT inspection, moist mucous membranes Neck Exam: normal inspection, non-tender, supple, full range of motion Respiratory Exam: airway intact, No chest tenderness, No respiratory distress Gastrointestinal/Abdomen Exam: No tenderness Rectal Exam: not done Back Exam: normal inspection, normal range of motion, No CVA tenderness, No vertebral tenderness Extremity Exam: normal range of motion, pelvis stable, lacerations (2-1/2 cm laceration dorsal aspect right thumb, 1 and half centimeter laceration palmar aspect right index finger and 1 cm laceration palmar aspect right middle finger.), tenderness, other (Right hand exam neurovascularly intact. Tendon function intact. No active bleeding present.) Neurologic Exam: alert, oriented x 3, cooperative, rotoformer backtender II-XII nml as tested, normal mood/affect, nml cerebellar function, nml station & gait, sensation nml Skin Exam: normal color, warm, dry, laceration (See above) Lymphatic Exam: No adenopathy SpO2 Interpretation: normal O2 Delivery: Room Air Procedures - Laceration/Wound Repair Right Distal Dorsal Finger Wound Location: Right, hand (2.5 cm dorsal thumb laceration, 1.5 cm palmar middle finger distal laceration) Wound Length (cm): 4 Wound's Depth, Shape: superficial, linear, into subcut Wound Explored: clean (No foreign body noted. Evaluation took place in a bloodless field and evaluated to the base of the wound) Irrigated: Yes Hibiclens Prep: Yes Anesthesia: 1% Lidocaine Volume Anesthetic (ccs): 5 Wound Debrided: minimal Wound Repaired With: sutures Suture Size/Type: 4-0, prolene Number of Sutures: 10 Layer Closure?: No Sterile Dressing Applied?: Yes Splint Applied?: No Progress: 04/08/20 11:47 Procedure note: After the laceration sites were repaired, the wounds were again cleaned with Hibiclens and sterile water solution. They were dried. Bacitracin ointment and nonstick gauze and pressure dressings were applied to each site. There were no complications the patient told procedure well. - Course Nursing assessment & vital signs reviewed: Yes Ordered Tests: Active Orders 24 hr Category Date Time Status Wound Care STAT Care 04/08/20 11:20 Active Medication Summary Discontinued Medications Generic Name Dose Route Start Last Admin Trade Name Freq PRN Reason Stop Dose Admin Bacitracin Zinc 0.9 gm 04/08/20 11:20 04/08/20 11:25 Baciguent Packet TP 04/08/20 11:21 0.9 gm STAT ONE Administration Sodium Chloride 1,000 mls @ 999 mls/hr 04/08/20 11:04 Sodium Chloride 0.9% 1000 Ml IV 04/08/20 12:04 .Q1H1M STA Lidocaine HCl Confirm 04/08/20 11:17 Xylocaine 1% Hcl 20 Ml Mdv Administered 04/08/20 11:18 Dose 10 ml .ROUTE .STK-MED ONE Lidocaine HCl 10 ml 04/08/20 11:20 04/08/20 11:25 Xylocaine 1% Hcl 20 Ml Mdv IJ 04/08/20 11:21 10 ml STAT ONE Administration - Progress Progress: improved - Departure Departure Disposition: Home Clinical Impression: Finger laceration Condition: Stable Critical Care Time: No Referrals: AWAIS TINAJERO [Primary Care Provider] - Additional Instructions: Keep current dressings in place until tomorrow evening (04/09/2020). Tomorrow evening, may remove the dressings then wash the sites with soap and water. Apply antibiotic ointment, and then cover each site with a bandage. Suture removal in 8 to 10 days. Take your medication as prescribed. Prescriptions: Hydrocodone/APAP 5-325 Tab^^^ [[place] 5-325 Tablet^^^] 1 tab PO Q8H PRN PRN #6 tablet MDD 3 PRN Reason: Pain Cephalexin Mh 500 mg [Keflex 500 mg] 500 mg PO TID #15 capsule
[2020-04-08] MEDS ORDERED: Sodium Chloride 0.9% 1000 ML 1,000 ML IV STA (11:04)
[2020-04-08 11:15] VITALS: BP 102/83; PULSE 62; O2SAT 99
[2020-04-08] MEDS ORDERED: XYLOCAINE 1% HCL 20 ML MDV ONE (11:17)
[2020-04-08] MEDS ORDERED: BACIGUENT PACKET TP ONE (11:20)
[2020-04-08] MEDS ORDERED: XYLOCAINE 1% HCL 20 ML MDV IJ ONE (11:20)
== END 2020-04-08 11:59 | disposition home or self-care (01) ==
LOC: ED 10:57
DX: S61.011A Laceration without foreign body of right thumb without damage to nail, initial encounter (principal)
CPT/HCPCS: 12002; 96372; 99283; A9270-GY

== ENCOUNTER 2020-04-12 12:18 | Emergency (ER) | payer OTHER ==
--- NOTE | 2020-04-12 13:06 | ERPHSYRPT ---
- History of Present Illness Time Seen by Provider: 04/12/20 12:25 Source: patient Exam Limitations: no limitations Patient Subjective Stated Complaint: Pt states "I was here last saturday and got all these stitches and was told I could go back to work saturday and I went back yesterday and today I smashed my hand again and I cannot move my thumb." Triage Nursing Assessment: Pt presented alert and orietned X 3, skin wpd tp ambulates with an upright steady gait, able to speak in clear full sentences. PT keeps falling asleep, pt has sutures on his thumb and his middle finger. Physician History: Patient is here with right thumb pain. Patient had an injury at work last week. He states that he had lacerations repaired here in this emergency department. Today he went back to work and rejammed his right thumb. He is now having some right metacarpal pain. Location: right thumb Quality: sharp Radiation: none Severity: moderate Duration: this AM Timing: after injury Modifying factors/associated signs and symptoms: home Tylenol Allergies/Adverse Reactions: naproxen [From Naprosyn] Adverse Reaction (Verified 04/08/20 11:04) kidneys shut down Hx Tetanus, Diphtheria Vaccination/Date Given: Yes Hx Influenza Vaccination/Date Given: No Hx Pneumococcal Vaccination/Date Given: No Immunizations Up to Date: Yes Travel Risk - International Travel Have you traveled outside of the country in past 3 weeks: No - Coronavirus Screening Are you exhibiting any of the following symptoms?: No Close contact with a COVID-19 positive Pt in past 14-21 Days: No - Review of Systems Constitutional: No Fever, No Chills Eyes: No Symptoms Ears, Nose, & Throat: No Symptoms Respiratory: No Cough, No Dyspnea Cardiac: No Chest Pain, No Edema, No Syncope Abdominal/Gastrointestinal: No Abdominal Pain, No Nausea, No Vomiting, No Diarrhea Genitourinary Symptoms: No Dysuria Musculoskeletal: Other (right thumb pain ), No Back Pain, No Neck Pain Skin: No Rash Neurological: No Dizziness, No Focal Weakness, No Sensory Changes Psychological: No Symptoms Endocrine: No Symptoms All Other Systems: Reviewed and Negative - Past Medical History Pertinent Past Medical History: Yes Neurological History: Seizures ENT History: No Pertinent History Cardiac History: No Pertinent History Respiratory History: No Pertinent History Endocrine Medical History: No Pertinent History Musculoskeletal History: Other GI Medical History: No Pertinent History History: No Pertinent History Psycho-Social History: Anxiety, Depression Male Reproductive Disorders: No Pertinent History Other Medical History: shattered left foot in 2010, broken wrist during childhood - Past Surgical History Past Surgical History: No Neuro Surgical History: No Pertinent History Cardiac: No Pertinent History Respiratory: No Pertinent History Gastrointestinal: No Pertinent History Genitourinary: No Pertinent History Musculoskeletal: No Pertinent History Male Surgical History: No Pertinent History - Social History Smoking Status: Current every day smoker How long have you smoked: years Exposure to second hand smoke: Yes Drug Use: marijuana, methamphetamines Patient Lives Alone: No Significant Family History: no pertinent family hx - Nursing Vital Signs Nursing Vital Signs: Initial Vital Signs Temperature 98.1 F 04/12/20 12:32 Pulse Rate 79 04/12/20 12:32 Respiratory Rate 20 04/12/20 12:32 Blood Pressure 128/70 04/12/20 12:32 O2 Sat by Pulse Oximetry 98 04/12/20 12:32 Pain Scale Pain Intensity 10 - Physical Exam General Appearance: no apparent distress, alert Eye Exam: PERRL/EOMI, eyes nml inspection Ears, Nose, Throat Exam: normal ENT inspection, TMs normal, pharynx normal, moist mucous membranes Neck Exam: normal inspection, non-tender, supple, full range of motion Respiratory Exam: normal breath sounds, lungs clear, No respiratory distress Cardiovascular Exam: regular rate/rhythm, normal heart sounds, normal peripheral pulses Gastrointestinal/Abdomen Exam: soft, normal bowel sounds, No tenderness, No mass Back Exam: normal inspection, normal range of motion, No CVA tenderness, No vertebral tenderness Extremity Exam: normal inspection, normal range of motion, pelvis stable Neurologic Exam: alert, oriented x 3, cooperative, normal mood/affect, nml cerebellar function, nml station & gait, sensation nml, No motor deficits Skin Exam: normal color, warm, dry, No rash Lymphatic Exam: No adenopathy SpO2 Interpretation: normal SpO2: 98 Comments: 04/12/20 13:[address] on right thumb and fingers. No signs of infection. No obvious deformity, sensation intact, 2+ capillary refill, 2 point tactile discrimination intact. 5 out of 5 strength. Full range of motion without pain. Compartments are soft, nontender. Overlying skin shows no tenting, bruising, ecchymosis. - Course Nursing assessment & vital signs reviewed: Yes Ordered Tests: Active Orders 24 hr Category Date Time Status FINGER(S) Stat Exams 04/12/20 12:58 Completed - Progress Progress: improved Progress Note: 04/12/20 13:06 Sutures appear well healing. No obvious deformities on physical exam. I will o rder an XR. 04/12/20 13:47 X-ray appears to show no new fractures or issues. Patient does have a possible foreign body retained in the IP joint. This is not where the patient's pain is today. It is unclear if these foreign bodies are actually in there or it is artifact. Therefore, I recommend close follow-up with orthopedic surgery. The wound appears well-healing, sutures in place. Therefore, I will not place patient on any antibiotics today. I do recommend close follow-up with the orthopedic surgeon for further evaluation and eventual suture removal, wound healing process. - Departure Departure Disposition: Home Clinical Impression: Pain of right thumb, Seizure, Foreign body (FB) in soft tissue Condition: Stable Critical Care Time: No Referrals: AWAIS TINAJERO [Primary Care Provider] - Instructions: Hand Pain (DC) Additional Instructions: Follow up with orthopedic surgery this week for possible foreign body retained. He may have a small foreign body retained in your sutures. However it is unclear based on x-ray today. Therefore recommend close follow-up with orthopedic surgery, wound check, return here for any new or changing symptoms. He had no obvious signs of infection today on your wound. Therefore, will avoid any antibiotics. However, you will need close follow-up and reexam with orthopedic surgery this week. See attached sheet for how to follow-up. Outpatient Orders: Ortho Referral Time Frame: 1 Day, Facility: [facility], Location: ORTHO CLINIC
[2020-04-12 13:27] VITALS: BP 108/64; PULSE 65
--- NOTE | 2020-04-12 13:36 | XRAY ---
Indication: Pain following injury. Laceration. Comparison: None 3 view right thumb demonstrates 2 punctate densities adjacent to IP joint, possible foreign bodies. No other bony, articular, or soft tissue abnormalities.
[2020-04-12 13:45] VITALS: O2SAT 98
== END 2020-04-12 13:52 | disposition home or self-care (01) ==
LOC: ED 12:18
DX: M79.644 Pain in right finger(s) (principal); W23.0XXA Caught, crushed, jammed, or pinched between moving objects, initial encounter; Y99.0 Civilian activity done for income or pay; R56.9 Unspecified convulsions
CPT/HCPCS: 73140; 99283

== ENCOUNTER 2020-08-23 17:40 | Emergency (ER) | payer OTHER ==
--- NOTE | 2020-08-23 17:48 | ERPHSYRPT ---
- History of Present Illness Time Seen by Provider: 08/23/20 17:48 Source: patient Exam Limitations: no limitations Allergies/Adverse Reactions: naproxen [From Naprosyn] Adverse Reaction (Verified 08/23/20 17:52) kidneys shut down Hx Tetanus, Diphtheria Vaccination/Date Given: Yes Hx Influenza Vaccination/Date Given: No Hx Pneumococcal Vaccination/Date Given: No - Past Medical History Pertinent Past Medical History: Yes Neurological History: Seizures ENT History: No Pertinent History Cardiac History: No Pertinent History Respiratory History: No Pertinent History Endocrine Medical History: No Pertinent History Musculoskeletal History: Other GI Medical History: No Pertinent History History: No Pertinent History Psycho-Social History: Anxiety, Depression Male Reproductive Disorders: No Pertinent History Other Medical History: shattered left foot in 2010, broken wrist during childhood - Past Surgical History Past Surgical History: No Neuro Surgical History: No Pertinent History Cardiac: No Pertinent History Respiratory: No Pertinent History Gastrointestinal: No Pertinent History Genitourinary: No Pertinent History Musculoskeletal: No Pertinent History Male Surgical History: No Pertinent History - Social History Smoking Status: Current every day smoker How long have you smoked: years Exposure to second hand smoke: Yes Drug Use: marijuana, methamphetamines Patient Lives Alone: No Significant Family History: no pertinent family hx - Nursing Vital Signs Nursing Vital Signs: Initial Vital Signs Temperature 97.7 F 08/23/20 17:46 Pulse Rate 98 H 08/23/20 17:46 Respiratory Rate 18 08/23/20 17:46 Blood Pressure 138/73 08/23/20 17:46 O2 Sat by Pulse Oximetry 100 08/23/20 17:46 Pain Scale Pain Intensity 6 - Course Nursing assessment & vital signs reviewed: Yes Ordered Tests: Medication Summary Generic Name Dose Route Start Last Admin Trade Name Freq PRN Reason Stop Dose Admin Diphenhydramine HCl 50 mg 08/23/20 18:06 Benadryl 25 Mg Capsule PO 08/23/20 18:07 STAT ONE Famotidine 40 mg 08/23/20 18:06 Pepcid 20 Mg PO 08/23/20 18:07 STAT ONE Prednisone 20 mg 08/24/20 18:07 Deltasone 20 Mg PO 08/24/20 18:08 STAT ONE - Progress Progress: improved Counseled pt/family regarding: diagnosis, need for follow-up - Departure Departure Disposition: Home Clinical Impression: Contact dermatitis Condition: Stable Critical Care Time: No Referrals: AWAIS TINAJERO [Primary Care Provider] - Additional Instructions: Keep area clean daily with soap and water. Avoid exposure/reexposure to those items that caused your symptoms. Use Benadryl 25 mg orally 3 times a day for the next 4 days. Forms: Work/School Release Form Prescriptions: Prednisone 10 mg [Deltasone 10 mg] 10 mg PO TID #12 tablet Famotidine 20 mg [Pepcid 20 MG] 20 mg PO DAILY #10 tablet
[2020-08-23 17:53] VITALS: O2SAT 100
[2020-08-23] MEDS ORDERED: Pepcid 20 MG PO ONE (18:06)
[2020-08-23] MEDS ORDERED: BENADRYL 25 MG CAPSULE PO ONE (18:06)
[2020-08-23] MEDS ORDERED: Pepcid 20 MG ONE (18:18)
[2020-08-23] MEDS ORDERED: BENADRYL 25 MG CAPSULE ONE (18:18)
[2020-08-23] MEDS ORDERED: DELTASONE 20 MG ONE (18:18)
[2020-08-23 18:35] VITALS: BP 120/59; PULSE 76
[2020-08-24] MEDS ORDERED: DELTASONE 20 MG PO ONE (18:07)
== END 2020-08-23 18:32 | disposition home or self-care (01) ==
LOC: ED 17:40
DX: L25.9 Unspecified contact dermatitis, unspecified cause (principal)
CPT/HCPCS: 99283; A9270-GY

== ENCOUNTER 2020-08-31 11:09 | Emergency (ER) | payer OTHER ==
[2020-08-31 11:22] VITALS: BP 101/68; PULSE 70; O2SAT 100
--- NOTE | 2020-08-31 12:10 | ERPHSYRPT ---
- History of Present Illness Time Seen by Provider: 08/31/20 11:17 Source: patient Exam Limitations: no limitations Patient Subjective Stated Complaint: Pt was at work at the [employer] 2 days ago and smashed his middle right finger between a log and some metal, pt continued to work and then today when he woke up his finger was having extreme pain and it's swollen Triage Nursing Assessment: Pt brought self to the ER, vitals wnl, rates pain in finger as 8/10, swelling to the distal end of the middle finger of the right hand, pt cut the same finger in the same place approx 4 months ago, denies any other injuries Physician History: 35 years old right-handed dominant male presented in the ER with chief complaint of right third distal finger pain and swelling after he smashed his finger between a metal and a big log while working at [employer] 2 days ago. This morning he woke up with more pain and swelling distal finger. Patient describes sharp throbbing moderate to severe intensity pain which is aggravated with palpation movements and partial relief with being still. Patient also noticed a small skin break on the lateral aspect of distal pulp when he got smashed. Did not notice any discharge but is very tender in the pulp area. No injury to the nail. Occurred: days ago (2) Method of Injury: other Quality: sharpness, stabbing Severity of Pain-Max: severe Severity of Pain-Current: moderate Extremities Pain Location: 3rd finger: right Modifying Factors: Improves With: immobilization, rest. Worsens With: movement Associated Symptoms: none Allergies/Adverse Reactions: naproxen [From Naprosyn] Adverse Reaction (Verified 08/31/20 11:22) kidneys shut down Hx Tetanus, Diphtheria Vaccination/Date Given: Yes Hx Influenza Vaccination/Date Given: No Hx Pneumococcal Vaccination/Date Given: No Travel Risk - International Travel Have you traveled outside of the country in past 3 weeks: No - Coronavirus Screening Are you exhibiting any of the following symptoms?: No Close contact with a COVID-19 positive Pt in past 14-21 Days: No - Review of Systems Constitutional: No Symptoms Eyes: No Symptoms Ears, Nose, & Throat: No Symptoms Respiratory: No Symptoms Cardiac: No Symptoms Abdominal/Gastrointestinal: No Symptoms Genitourinary Symptoms: No Symptoms Musculoskeletal: Injury Skin: Induration Neurological: No Symptoms Psychological: No Symptoms Endocrine: No Symptoms Hematologic/Lymphatic: No Symptoms - Past Medical History Pertinent Past Medical History: Yes Neurological History: Seizures ENT History: No Pertinent History Cardiac History: No Pertinent History Respiratory History: No Pertinent History Endocrine Medical History: No Pertinent History Musculoskeletal History: Other GI Medical History: No Pertinent History History: No Pertinent History Psycho-Social History: Anxiety, Depression Male Reproductive Disorders: No Pertinent History Other Medical History: shattered left foot in 2010, broken wrist during childhood - Past Surgical History Past Surgical History: No Neuro Surgical History: No Pertinent History Cardiac: No Pertinent History Respiratory: No Pertinent History Gastrointestinal: No Pertinent History Genitourinary: No Pertinent History Musculoskeletal: No Pertinent History Male Surgical History: No Pertinent History - Social History Smoking Status: Current every day smoker How long have you smoked: years Exposure to second hand smoke: Yes Drug Use: marijuana, methamphetamines Patient Lives Alone: Yes Significant Family History: no pertinent family hx - Nursing Vital Signs Nursing Vital Signs: Initial Vital Signs Temperature 97.8 F 08/31/20 11:14 Pulse Rate 70 08/31/20 11:14 Blood Pressure 101/68 08/31/20 11:14 O2 Sat by Pulse Oximetry 100 08/31/20 11:14 Pain Scale Pain Intensity 8 - Physical Exam General Appearance: no apparent distress, alert Neck Exam: normal inspection, full range of motion Cardiovascular/Respiratory Exam: normal breath sounds, regular rate/rhythm Back Exam: normal inspection, normal range of motion Shoulder Exam: normal inspection Elbow/Forearm Exam: normal inspection Wrist Exam: normal inspection, non-tender, no evidence of injury, normal ROM Hand Exam: infection, limited ROM, soft tissue tenderness (Right hand third digit distal pulp swelling with a small lesion on the lateral aspect. Whitening around the lateral area. Negative fluctuation. Remarkable tenderness on the pulp.), swelling Neuro/Tendon Exam: normal sensation, normal motor functions Mental Status Exam: alert, oriented x 3 Skin Exam: normal color SpO2 Interpretation: normal SpO2: 100 O2 Delivery: Room Air Ordered Tests: Active Orders 24 hr Category Date Time Status FINGER(S) Stat Exams 08/31/20 12:08 Taken - Progress Progress: pain not gone completely, re-examined Progress Note: 08/31/20 12:18 He is given local digital block with lidocaine 1% and I have made it needle aspiration but no pus retrieved. I believe patient is going towards developing felon and will start him on antibiotic and pain medication. No significant risks were MRSA and patient will be started on cephalosporin first generation. He is given IM shot of Kefzol here and will continue with Keflex to go home. Discussed signs symptoms of worsening needing return to ER which he seems understanding. Stable for discharge. Counseled pt/family regarding: diagnosis, need for follow-up, rad results - Departure Departure Disposition: Home Clinical Impression: Finger infection Condition: Stable Critical Care Time: No Referrals: AWAIS TINAJERO [Primary Care Provider] - (1-2 days for reevaluation) Instructions: Ricarda (DC) Additional Instructions: Take pain medications as needed. Follow-up with primary care for reevaluation in 1 to 2 days. Continue with antibiotics. Return to ER for worsening pain swelling or if redness/swelling is extending proximally towards the hand or if develop fever chills etc. Prescriptions: Hydrocodone/APAP 5/325 [[place] 5/325 mg] 1 each PO Q6H PRN PRN #10 tablet MDD 4 PRN Reason: Pain Cephalexin Mh 500 mg [Keflex 500 mg] 500 mg PO TID #21 capsule
--- NOTE | 2020-08-31 12:17 | XRAY ---
Indication: Crush injury. Comparison: None 3 view right 3rd finger obtained. No bony, articular, or soft tissue abnormalities.
[2020-08-31] MEDS ORDERED: KEFZOL 1 GM IM ONE (12:18)
[2020-08-31] MEDS ORDERED: KEFZOL 1 GM ONE (12:31)
== END 2020-08-31 12:58 | disposition home or self-care (01) ==
LOC: ED 11:09
DX: L08.9 Local infection of the skin and subcutaneous tissue, unspecified (principal); W23.1XXA Caught, crushed, jammed, or pinched between stationary objects, initial encounter; Y93.89 Activity, other specified; Y92.89 Other specified places as the place of occurrence of the external cause; Y99.0 Civilian activity done for income or pay; M79.644 Pain in right finger(s); M79.89 Other specified soft tissue disorders
CPT/HCPCS: 73140; 96372; 99284; J0690

== ENCOUNTER 2020-10-25 09:50 | Emergency (ER) | payer OTHER ==
[2020-10-25 10:02] VITALS: O2SAT 99
[2020-10-25] MEDS ORDERED: TYLENOL 325 MG PO ONE (10:12)
[2020-10-25] MEDS ORDERED: Sodium Chloride 0.9% 1000 ML 1,000 ML IV STA (10:12)
[2020-10-25] MEDS ORDERED: BENADRYL 50 MG/ML IV ONE (10:12)
[2020-10-25] MEDS ORDERED: Inapsine 5 MG/2 ML IV ONE (10:12)
--- NOTE | 2020-10-25 10:12 | ERPHSYRPT ---
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 Patient described this as a fullness/pressure sensation which is aggravated with movements and better with being still in a dark room. No associated nausea or vomiting. No numbness tingling or focal weakness. Denies any history of fever chills. Timing/Duration: yesterday, gradual onset, worse Quality: fullness, pressure Head Pain Location: frontal Severity of Pain-Max: moderate Severity of Pain-Current: moderate Recent Head Trauma: no recent headache/trauma Modifying Factors: Improves With: immobilization. Worsens With: movement Associated Symptoms: nasal congestion, No confusion, No dizziness, No fever/chills, No loss of consciousness, No neck pain, No numbness in legs/feet, No seizures, No sensitive to light, No speech problems, No stiff neck, No trouble walking, No vision changes Previous symptoms: no prior history Allergies/Adverse Reactions: naproxen [From Naprosyn] Adverse Reaction (Verified 10/25/20 10:02) kidneys shut down Home Medications: No Reportable Medications [No Reported Medications] 10/25/20 [History] Hx Tetanus, Diphtheria Vaccination/Date Given: Yes Hx Influenza Vaccination/Date Given: No Hx Pneumococcal Vaccination/Date Given: No Travel Risk - International Travel Have you traveled outside of the country in past 3 weeks: No - Coronavirus Screening Are you exhibiting any of the following symptoms?: No Close contact with a COVID-19 positive Pt in past 14-21 Days: No - Vaccine Status Have you recieved a Covid-19 vaccination: No - Review of Systems Constitutional: No Symptoms Eyes: No Symptoms Ears, Nose, & Throat: Nose Congestion Respiratory: No Symptoms Cardiac: No Symptoms Abdominal/Gastrointestinal: No Symptoms Genitourinary Symptoms: No Symptoms Musculoskeletal: No Symptoms Skin: No Symptoms Neurological: Headache Psychological: Anxiety Endocrine: No Symptoms Hematologic/Lymphatic: No Symptoms Immunological/Allergic: No Symptoms - Past Medical History Pertinent Past Medical History: Yes Neurological History: Seizures ENT History: No Pertinent History Cardiac History: No Pertinent History Respiratory History: No Pertinent History Endocrine Medical History: No Pertinent History Musculoskeletal History: Other GI Medical History: No Pertinent History History: No Pertinent History Psycho-Social History: Anxiety, Depression Male Reproductive Disorders: No Pertinent History Other Medical History: shattered left foot in 2010, broken wrist during childhood - Past Surgical History Past Surgical History: No Neuro Surgical History: No Pertinent History Cardiac: No Pertinent History Respiratory: No Pertinent History Gastrointestinal: No Pertinent History Genitourinary: No Pertinent History Musculoskeletal: No Pertinent History Male Surgical History: No Pertinent History - Social History Smoking Status: Current every day smoker How long have you smoked: years Exposure to second hand smoke: Yes Drug Use: none Patient Lives Alone: Yes Significant Family History: no pertinent family hx - Nursing Vital Signs Nursing Vital Signs: Initial Vital Signs Temperature 97.6 F 10/25/20 09:54 Pulse Rate 59 L 10/25/20 09:54 Blood Pressure 107/65 10/25/20 09:54 O2 Sat by Pulse Oximetry 99 10/25/20 09:54 Pain Scale Pain Intensity 8 - Physical Exam General Appearance: no apparent distress, alert Eye Exam: PERRL/EOMI, eyes nml inspection Ears, Nose, Throat Exam: normal ENT inspection, TMs normal, pharynx normal Neck Exam: normal inspection, non-tender, supple, full range of motion, No meningismus, No Brudzinski, No Kernig's Respiratory Exam: normal breath sounds, lungs clear Cardiovascular Exam: regular rate/rhythm, normal heart sounds Gastrointestinal/Abdominal Exam: soft, normal bowel sounds, No tenderness Back Exam: normal inspection, normal range of motion Extremity Exam: normal inspection, normal range of motion Mental Status Exam: alert, oriented x 3, 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 Exam: normal hearing, normal speech, PERRL Coordination/Gait Exam: normal finger to nose, normal gait, normal cerebellar function, negative Romberg's sign Motor/Sensory Exam: no motor deficit, no sensory deficit, no pronator drift, negative Babinski's sign DTR Exam: bicep (R): 2+, bicep (L): 2+, knee (R): 2+, knee (L): 2+ Skin Exam: normal color SpO2 Interpretation: normal SpO2: 99 O2 Delivery: Room Air Ordered Tests: Active Orders 24 hr Category Date Time Status IV Insertion STAT Care 10/25/20 10:12 Completed Medication Summary Discontinued Medications Generic Name Dose Route Start Last Admin Trade Name Shelia PRN Reason Stop Dose Admin Acetaminophen 975 mg 10/25/20 10:12 10/25/20 10:30 Tylenol 325 Mg PO 10/25/20 10:13 975 mg STAT ONE Administration Acetaminophen Confirm 10/25/20 10:27 Tylenol 325 Mg Administered 10/25/20 10:28 Dose 975 mg .ROUTE .STK-MED ONE Diphenhydramine HCl 25 mg 10/25/20 10:12 10/25/20 10:31 Benadryl 50 Mg/Ml IV 10/25/20 10:13 25 mg STAT ONE Administration Diphenhydramine HCl Confirm 10/25/20 10:27 Benadryl 50 Mg/Ml Administered 10/25/20 10:28 Dose 50 mg .ROUTE .STK-MED ONE Droperidol 1.25 mg 10/25/20 10:12 10/25/20 10:31 Inapsine 5 Mg/2 Ml IV 10/25/20 10:13 1.25 mg STAT ONE Administration Droperidol Confirm 10/25/20 10:27 Inapsine 5 Mg/2 Ml Administered 10/25/20 10:28 Dose 5 mg .ROUTE .STK-MED ONE Sodium Chloride 1,000 mls @ 999 mls/hr 10/25/20 10:12 10/25/20 10:29 Sodium Chloride 0.9% 1000 Ml IV 10/25/20 11:12 999 mls/hr .Q1H1M STA Administration Sodium Chloride Confirm 10/25/20 10:27 Sodium Chloride 0.9% 1000 Ml Administered 10/25/20 10:28 Dose 1,000 mls @ ud .ROUTE .STK-MED ONE - Progress Progress: improved, re-examined Air Movement: good Progress Note: 10/25/20 11:05 Patient has nonfocal neuro exam throughout stay in the ER. No signs of meningismus. Has some sinus congestion could be sinus related headache. Given migraine cocktail with Inapsine/Benadryl and fluids, reevaluation headache is completely resolved. Recommended Tylenol ibuprofen to take as needed and outpatient follow-up. Do not think she needs imaging or any work-up and is stable for discharge. Blood Culture(s) Obtained: No Counseled pt/family regarding: diagnosis, need for follow-up - Departure Departure Disposition: Home Clinical Impression: Frontal headache Condition: Stable Critical Care Time: No Referrals: AWAIS TINAJERO [Primary Care Provider] - (1-2 days for reevaluation) Instructions: Headache, Adult (DC) Additional Instructions: Take Tylenol/ibuprofen as needed for headache. Follow-up with primary care physician for reevaluation. Return to ER for worsening headache, numbness tingling weakness, difficulty movements of neck, intractable vomiting, fever ch ills etc.
[2020-10-25] MEDS ORDERED: Inapsine 5 MG/2 ML ONE (10:27)
[2020-10-25] MEDS ORDERED: TYLENOL 325 MG ONE (10:27)
[2020-10-25] MEDS ORDERED: BENADRYL 50 MG/ML ONE (10:27)
[2020-10-25] MEDS ORDERED: Sodium Chloride 0.9% 1000 ML 1,000 ML ONE (10:27)
[2020-10-25 11:02] VITALS: BP 105/75; PULSE 58
== END 2020-10-25 11:11 | disposition home or self-care (01) ==
LOC: ED 09:50
DX: R51.9 Headache, unspecified (principal)
CPT/HCPCS: 96374; 96375; 99284; J1200; A9270-GY

== ENCOUNTER 2020-10-28 06:40 | Emergency (ER) | payer OTHER ==
[2020-10-28] MEDS ORDERED: Kenalog-40 IM ONE (07:53)
[2020-10-28] MEDS ORDERED: Kenalog-40 ONE (07:55)
--- NOTE | 2020-10-28 08:02 | ERPHSYRPT ---
- History of Present Illness Time Seen by Provider: 10/28/20 07:52 Source: patient Exam Limitations: no limitations Patient Subjective Stated Complaint: pt works at the [employer] and has rash to face, neck, chest and arms Triage Nursing Assessment: pt works at the [employer] and has a rash to face, neck, chest and arms which started around 4pm yesterday. Areas are red to body and face, slight welps to face. Pt is sure the logs have some sort of poison on them and the dust flies and gets on his body. Physician History: 35 years old male presented in the ER with chief complaint of rash on the face, upper anterior chest and hand/wrist since yesterday afternoon. Patient report he works at the [employer] and probably came across some kind of allergen from the dust. Reports burning with itching gradually worsening over the course of last night. No redness of eyeball itself or difficulty vision. No nasal congestion, sore/scratchiness in the throat or throat closing sensation. No difficulty breathing. Does have similar symptoms in the past as well. Timing/Duration: yesterday Quality: burning, itchy Severity: moderate Location: face, torso, hands Possible Causes: exposure to allergen Associated Symptoms: rash, No blisters, No change in skin texture, No difficulty breathing, No edema, No fever, No flushing, No nasal congestion, No sore throat, No swelling/mass/lumps, No tingling Allergies/Adverse Reactions: naproxen [From Naprosyn] Adverse Reaction (Verified 10/28/20 06:55) kidneys shut down Hx Tetanus, Diphtheria Vaccination/Date Given: Yes Hx Influenza Vaccination/Date Given: No Hx Pneumococcal Vaccination/Date Given: No Immunizations Up to Date: Yes Travel Risk - International Travel Have you traveled outside of the country in past 3 weeks: No - Coronavirus Screening Are you exhibiting any of the following symptoms?: No Close contact with a COVID-19 positive Pt in past 14-21 Days: No - Vaccine Status Have you recieved a Covid-19 vaccination: No - Review of Systems Constitutional: No Symptoms Eyes: No Symptoms Ears, Nose, & Throat: No Symptoms Respiratory: No Symptoms Cardiac: No Symptoms Abdominal/Gastrointestinal: No Symptoms Genitourinary Symptoms: No Symptoms Skin: Rash Neurological: No Symptoms Psychological: Anxiety Endocrine: No Symptoms Hematologic/Lymphatic: No Symptoms Immunological/Allergic: No Symptoms - Past Medical History Pertinent Past Medical History: Yes Neurological History: Seizures ENT History: No Pertinent History Cardiac History: No Pertinent History Respiratory History: No Pertinent History Endocrine Medical History: No Pertinent History Musculoskeletal History: Other GI Medical History: No Pertinent History History: No Pertinent History Psycho-Social History: Anxiety, Depression Male Reproductive Disorders: No Pertinent History Other Medical History: shattered left foot in 2010, broken wrist during childhood - Past Surgical History Past Surgical History: No Neuro Surgical History: No Pertinent History Cardiac: No Pertinent History Respiratory: No Pertinent History Gastrointestinal: No Pertinent History Genitourinary: No Pertinent History Musculoskeletal: No Pertinent History Male Surgical History: No Pertinent History - Social History Smoking Status: Current every day smoker How long have you smoked: 22 yrs Exposure to second hand smoke: Yes Drug Use: none Patient Lives Alone: No Significant Family History: no pertinent family hx - Nursing Vital Signs Nursing Vital Signs: Initial Vital Signs Temperature 97.7 F 10/28/20 06:47 Pulse Rate 50 L 10/28/20 06:47 Respiratory Rate 18 10/28/20 06:47 Blood Pressure 108/68 10/28/20 06:47 O2 Sat by Pulse Oximetry 100 10/28/20 06:47 Pain Scale Pain Intensity 0 - Physical Exam General Appearance: no apparent distress, alert, anxiety Eye Exam: PERRL/EOMI, other (Mild puffiness around eyes/H mari) Ears, Nose, Throat Exam: normal ENT inspection, TMs normal, pharynx normal Neck Exam: normal inspection, non-tender, supple, full range of motion Respiratory Exam: normal breath sounds, lungs clear Cardiovascular Exam: regular rate/rhythm, normal heart sounds Back Exam: normal inspection Extremity Exam: normal inspection, normal range of motion, pelvis stable Neurologic Exam: alert, oriented x 3, cooperative, 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 as tested Skin Exam: normal color, rash (Patient mari around dorsum of hand/wrist/distal forearm/upper anterior chest) SpO2 Interpretation: normal SpO2: 98 O2 Delivery: Room Air Ordered Tests: Medication Summary Discontinued Medications Generic Name Dose Route Start Last Admin Trade Name Freq PRN Reason Stop Dose Admin Triamcinolone Acetonide 40 mg 10/28/20 07:53 Kenalog-40 IM 10/28/20 07:54 STAT ONE Triamcinolone Acetonide Confirm 10/28/20 07:55 Kenalog-40 Administered 10/28/20 07:56 Dose 40 mg .ROUTE .STK-MED ONE - Progress Progress: unchanged Progress Note: 10/28/20 08:01 Is given Kenalog shot as I believe patient has allergic reaction with some allergen and dust at [facility]. We will place him on a short course of steroid orally and topical to use on the arms and chest wall with Benadryl as needed. Discussed signs symptoms of worsening needing return to ER which he seems understanding. Counseled pt/family regarding: diagnosis, need for follow-up - Departure Departure Disposition: Home Clinical Impression: Allergic dermatitis Condition: Stable Critical Care Time: No Referrals: AWAIS TINAJERO [Primary Care Provider] - Follow Up with PCP/3 days Instructions: Poison [place], Poison [place], Poison [place] (DC) Additional Instructions: Apply topical steroid on the forearm/hand/chest wall. Do not apply on the face at all. Continue with oral steroids. Take Benadryl as needed. Follow-up with primary care physician for reevaluation. Return to ER for any worsening. Prescriptions: Diphenhydramine HCl 25 mg [Benadryl 25 mg Capsule] 25 mg PO Q4H PRN PRN #20 capsule PRN Reason: Allergies Hydrocortisone 1% Cream [Cortisone 1% Cream] 30 gm TP BID #1 tube Prednisone 20 mg [Deltasone 20 mg] 60 mg PO DAILY 5 Days #15 tablet
[2020-10-28 08:22] VITALS: BP 115/66; PULSE 60; O2SAT 99
== END 2020-10-28 08:22 | disposition home or self-care (01) ==
LOC: ED 06:40
DX: L23.9 Allergic contact dermatitis, unspecified cause (principal)
CPT/HCPCS: 96372; 99283; J3301

== ENCOUNTER 2020-12-13 17:28 | Emergency (ER) | payer OTHER ==
--- NOTE | 2020-12-13 17:34 | ERPHSYRPT ---
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 Today, he noticed pain in his right anterior knee. He did not fall off a ladder or have any specific trauma to the right knee anteriorly. He has not had any fevers. Method of Injury: other (No direct injury) Quality: constant, aching Severity of Pain-Max: moderate Severity of Pain-Current: moderate Lower Extremities Pain: knee: right Modifying Factors: Improves With: movement, other (Palpation) Associated Symptoms: other (Hurts to bear weight) Allergies/Adverse Reactions: naproxen [From Naprosyn] Adverse Reaction (Verified 12/13/20 18:02) kidneys shut down Hx Tetanus, Diphtheria Vaccination/Date Given: Yes Hx Influenza Vaccination/Date Given: No Hx Pneumococcal Vaccination/Date Given: No Travel Risk - International Travel Have you traveled outside of the country in past 3 weeks: No - Coronavirus Screening Are you exhibiting any of the following symptoms?: No Close contact with a COVID-19 positive Pt in past 14-21 Days: No - Vaccine Status Have you recieved a Covid-19 vaccination: No - Review of Systems Constitutional: No Symptoms Eyes: No Symptoms Ears, Nose, & Throat: No Symptoms Respiratory: No Symptoms Cardiac: No Symptoms Abdominal/Gastrointestinal: No Symptoms Genitourinary Symptoms: No Symptoms Musculoskeletal: Other (Right anterior knee pain) Skin: Cellulitis (?), Other (Redness, mild tenderness and swelling right anterior knee) Neurological: No Symptoms Psychological: No Symptoms Endocrine: No Symptoms Hematologic/Lymphatic: No Symptoms Immunological/Allergic: No Symptoms All Other Systems: Reviewed and Negative - Past Medical History Pertinent Past Medical History: Yes Neurological History: Seizures ENT History: No Pertinent History Cardiac History: No Pertinent History Respiratory History: No Pertinent History Endocrine Medical History: No Pertinent History Musculoskeletal History: Other GI Medical History: No Pertinent History History: No Pertinent History Psycho-Social History: Anxiety, Depression Male Reproductive Disorders: No Pertinent History Other Medical History: shattered left foot in 2010, broken wrist during childhood - Past Surgical History Past Surgical History: No Neuro Surgical History: No Pertinent History Cardiac: No Pertinent History Respiratory: No Pertinent History Gastrointestinal: No Pertinent History Genitourinary: No Pertinent History Musculoskeletal: No Pertinent History Male Surgical History: No Pertinent History - Social History Smoking Status: Current every day smoker How long have you smoked: 22 yrs Exposure to second hand smoke: Yes Drug Use: none Patient Lives Alone: No Significant Family History: no pertinent family hx - Nursing Vital Signs Nursing Vital Signs: Initial Vital Signs Pulse Rate 77 12/13/20 18:03 Respiratory Rate 16 12/13/20 18:03 Blood Pressure 127/79 12/13/20 18:03 O2 Sat by Pulse Oximetry 95 12/13/20 18:03 Pain Scale Pain Intensity 6 - Physical Exam General Appearance: no apparent distress, alert, anxiety Eyes, Ears, Nose, Throat Exam: normal ENT inspection, moist mucous membranes Neck Exam: normal inspection, non-tender, supple, full range of motion Cardiovascular/Respiratory Exam: chest non-tender, no respiratory distress Gastrointestinal/Abdominal Exam: non-tender Back Exam: normal inspection, normal range of motion, vertebral tenderness, No CVA tenderness Hips Exam: bilateral: non-tender, normal inspection, normal range of motion, no evidence of injury Legs Exam: bilateral leg: non-tender, normal inspection, normal range of motion, no evidence of injury Knees Exam: right knee: normal range of motion, no evidence of injury, soft tissue tenderness, swelling (Right anterior knee with associated mild cellulitis), left knee: non-tender, normal inspection Ankle Exam: bilateral ankle: non-tender, normal inspection, normal range of motion, no evidence of injury Foot Exam: bilateral foot: non-tender, normal inspection, normal range of motion, no evidence of injury Neuro/Tendon Exam: normal sensation, normal motor functions, normal tendon functions, responds to pain, no evidence tendon injury, No motor deficit, No sensory deficit Mental Status Exam: alert, oriented x 3, cooperative Skin Exam: other (Mild redness, warmth and possible cellulitis right anterior knee) SpO2 Interpretation: normal O2 Delivery: Room Air - Course Nursing assessment & vital signs reviewed: Yes Ordered Tests: Active Orders 24 hr Category Date Time Status KNEE (3 VIEWS) Stat Exams 12/13/20 19:14 Taken Medication Summary Generic Name Dose Route Start Last Admin Trade Name Freq PRN Reason Stop Dose Admin Prednisone 20 mg 12/14/20 19:31 Deltasone 20 Mg PO 12/14/20 19:32 STAT ONE Discontinued Medications Generic Name Dose Route Start Last Admin Trade Name Freq PRN Reason Stop Dose Admin Cephalexin HCl 500 mg 12/13/20 19:30 Keflex 500 Mg PO 12/13/20 19:31 STAT ONE - Progress Progress: improved, pain not gone completely, re-examined Progress Note: 12/13/20 19:38 X-ray of right knee shows no acute fracture or dislocation. Counseled pt/family regarding: diagnosis, need for follow-up, rad results - Departure Departure Disposition: Home Clinical Impression: Cellulitis of knee, right Condition: Stable Critical Care Time: No Referrals: AWAIS TINAJERO [Primary Care Provider] - Additional Instructions: Ice pack to right anterior knee 3 times a day for the next 48 hours. Take your medication as prescribed. Return to the emergency room department if symptoms worsen. Follow-up with your primary care physician (list provided) if your symptoms persist. Purchase snehal knee pads for your work. Forms: Work/School Release Form Prescriptions: Oxycodone HCl/Acetaminophen [Percocet 5-325 mg Tablet] 1 each PO Q8H PRN PRN #12 tablet MDD 3 PRN Reason: Pain Prednisone 10 mg [Deltasone 10 mg] 10 mg PO TID #12 tablet Cephalexin Mh 500 mg [Keflex 500 mg] 500 mg PO TID #21 capsule
[2020-12-13 19:13] VITALS: O2SAT 99
[2020-12-13] MEDS ORDERED: KEFLEX 500 MG PO ONE (19:30)
[2020-12-13] MEDS ORDERED: KEFLEX 500 MG ONE (19:34)
[2020-12-13] MEDS ORDERED: DELTASONE 20 MG ONE (19:34)
[2020-12-13 19:50] VITALS: BP 118/81; PULSE 80
--- NOTE | 2020-12-14 09:09 | XRAY ---
Indication: Pain following injury. Comparison: None 3 view right knee demonstrates tiny posterior fabella. No other bony, articular, or soft tissue abnormalities.
[2020-12-14] MEDS ORDERED: DELTASONE 20 MG PO ONE (19:31)
== END 2020-12-13 19:50 | disposition home or self-care (01) ==
LOC: ED 17:28
DX: L03.115 Cellulitis of right lower limb (principal)
CPT/HCPCS: 73562; 99283; A9270-GY

== ENCOUNTER 2020-12-27 22:22 | Emergency (ER) | payer OTHER ==
--- NOTE | 2020-12-27 22:53 | ERPHSYRPT ---
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 He took 50 mg of Benadryl approximately 4 hours ago. This seems to help a bit. He has had the same issue before and they diagnosed him with contact dermatitis. He does not know what it is he has been exposed to this causing this rash. Steroids seem to help him quite a bit. He is not short of breath. He has no complaints of any tightening in his throat. Timing/Duration: yesterday Quality: itchy Severity: mild (To moderate) Location: torso, hands, extremities (Bilateral upper extremities) Possible Causes: no cause identified Modifying Factors: Improves With: antihistamine, topical steriods Associated Symptoms: rash Allergies/Adverse Reactions: naproxen [From Naprosyn] Adverse Reaction (Verified 12/27/20 23:33) kidneys shut down Hx Tetanus, Diphtheria Vaccination/Date Given: Yes Hx Influenza Vaccination/Date Given: No Hx Pneumococcal Vaccination/Date Given: No Travel Risk - International Travel Have you traveled outside of the country in past 3 weeks: No - Coronavirus Screening Are you exhibiting any of the following symptoms?: No Close contact with a COVID-19 positive Pt in past 14-21 Days: No - Vaccine Status Have you recieved a Covid-19 vaccination: No - Review of Systems Constitutional: No Symptoms Eyes: No Symptoms Ears, Nose, & Throat: No Symptoms Respiratory: No Symptoms Cardiac: No Symptoms Abdominal/Gastrointestinal: No Symptoms Genitourinary Symptoms: No Symptoms Musculoskeletal: No Symptoms Skin: Rash (Torso bilateral upper extremities) Neurological: No Symptoms Psychological: No Symptoms Endocrine: No Symptoms Hematologic/Lymphatic: No Symptoms Immunological/Allergic: No Symptoms All Other Systems: Reviewed and Negative - Past Medical History Pertinent Past Medical History: Yes Neurological History: Seizures ENT History: No Pertinent History Cardiac History: No Pertinent History Respiratory History: No Pertinent History Endocrine Medical History: No Pertinent History Musculoskeletal History: Other GI Medical History: No Pertinent History History: No Pertinent History Psycho-Social History: Anxiety, Depression Male Reproductive Disorders: No Pertinent History Other Medical History: shattered left foot in 2010, broken wrist during childhood - Past Surgical History Past Surgical History: No Neuro Surgical History: No Pertinent History Cardiac: No Pertinent History Respiratory: No Pertinent History Gastrointestinal: No Pertinent History Genitourinary: No Pertinent History Musculoskeletal: No Pertinent History Male Surgical History: No Pertinent History - Social History Smoking Status: Current every day smoker How long have you smoked: 22 yrs Exposure to second hand smoke: Yes Drug Use: none Patient Lives Alone: No Significant Family History: no pertinent family hx - Nursing Vital Signs Nursing Vital Signs: Initial Vital Signs Temperature 97.8 F 12/27/20 23:21 Pulse Rate 65 12/27/20 23:21 Respiratory Rate 16 12/27/20 23:21 Blood Pressure 112/70 12/27/20 23:21 O2 Sat by Pulse Oximetry 99 12/27/20 23:21 Pain Scale Pain Intensity 7 - Physical Exam General Appearance: no apparent distress, alert, anxiety Eye Exam: PERRL/EOMI, eyes nml inspection Ears, Nose, Throat Exam: normal ENT inspection, moist mucous membranes Neck Exam: normal inspection, non-tender, supple, full range of motion Respiratory Exam: normal breath sounds, lungs clear, airway intact, No chest tenderness, No respiratory distress Cardiovascular Exam: regular rate/rhythm, normal heart sounds, normal peripheral pulses Gastrointestinal/Abdomen Exam: soft, normal bowel sounds, No tenderness Rectal Exam: not done Back Exam: normal inspection, normal range of motion, No CVA tenderness, No vertebral tenderness Extremity Exam: normal range of motion, pelvis stable Neurologic Exam: alert, oriented x 3, cooperative, 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 No evidence of cellulitis. No infection) Lymphatic Exam: No adenopathy SpO2 Interpretation: normal O2 Delivery: Room Air - Course Nursing assessment & vital signs reviewed: Yes Ordered Tests: Medication Summary Discontinued Medications Generic Name Dose Route Start Last Admin Trade Name Freq PRN Reason Stop Dose Admin Methylprednisolone Sodium 0 mg 12/27/20 23:45 Succinate 125 mg/ Sterile IM 12/27/20 23:46 Water 2 ml STAT ONE - Progress Progress: unchanged Counseled pt/family regarding: diagnosis, need for follow-up - Departure Departure Disposition: Home Clinical Impression: Contact dermatitis Condition: Stable Critical Care Time: No Referrals: FIONA LYONS MD [Primary Care Provider] - Additional Instructions: Keep rash site site clean daily with soap and water. Continue Benadryl 50 mg orally every 8 hours for 4 days. Fill your steroid prescription and take as prescribed. Prescriptions: Prednisone 10 mg [Deltasone 10 mg] 10 mg PO TID #12 tablet
[2020-12-27] MEDS ORDERED: solu-MEDROL 125 MG, Sterile H2O 10 ml 2 ML IM ONE ×2 (23:45)
[2020-12-27] MEDS ORDERED: Sterile H2O 10 ml IJ ONE (23:58)
[2020-12-27] MEDS ORDERED: solu-MEDROL ONE (23:58)
[2020-12-28 00:15] VITALS: BP 109/48; PULSE 61; O2SAT 98
== END 2020-12-28 00:24 | disposition home or self-care (01) ==
LOC: ED 22:22
DX: L25.9 Unspecified contact dermatitis, unspecified cause (principal)
CPT/HCPCS: 96372; 99283; J2930

== ENCOUNTER 2021-03-17 11:42 | Emergency (ER) | payer OTHER ==
--- NOTE | 2021-03-17 12:09 | ERPHSYRPT ---
- History of Present Illness Time Seen by Provider: 03/17/21 12:04 Exam Limitations: no limitations Patient Subjective Stated Complaint: L elbow pain, numbness Triage Nursing Assessment: pt to ED c/o L elbow pain onset Saturday. pt states pain and tingling has worsened since then, was told by a friend that if swelling did not go down to come see about draining it in the ED. has had knee drained in past for same sx. rates 01/17 pain. full ROM. 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 Attempted aspiration was not terribly successful but it did drain through the injection site. Occurred: days ago (3) Method of Injury: direct blow Quality: aching Severity of Pain-Max: moderate Severity of Pain-Current: moderate Extremities Pain Location: elbow: left Modifying Factors: Improves With: movement Associated Symptoms: none Allergies/Adverse Reactions: naproxen [From Naprosyn] Adverse Reaction (Verified 03/17/21 11:55) kidneys shut down Home Medications: Levetiracetam [Keppra 500 mg ] 500 mg PO BID 03/17/21 [History] Hx Tetanus, Diphtheria Vaccination/Date Given: Yes Hx Influenza Vaccination/Date Given: No Hx Pneumococcal Vaccination/Date Given: No Immunizations Up to Date: No Travel Risk - International Travel Have you traveled outside of the country in past 3 weeks: No - Coronavirus Screening Are you exhibiting any of the following symptoms?: No Close contact with a COVID-19 positive Pt in past 14-21 Days: No - Vaccine Status Have you recieved a Covid-19 vaccination: No - Review of Systems Constitutional: No Fever, No Chills Eyes: No Symptoms Ears, Nose, & Throat: No Symptoms Respiratory: No Cough, No Dyspnea Cardiac: No Chest Pain, No Edema, No Syncope Abdominal/Gastrointestinal: No Abdominal Pain, No Nausea, No Vomiting, No Diarrhea Genitourinary Symptoms: No Dysuria Musculoskeletal: No Back Pain, No Neck Pain Skin: No Rash Neurological: No Dizziness, No Focal Weakness, No Sensory Changes Psychological: No Symptoms Endocrine: No Symptoms All Other Systems: Reviewed and Negative - Past Medical History Pertinent Past Medical History: Yes Neurological History: Seizures ENT History: No Pertinent History Cardiac History: No Pertinent History Respiratory History: No Pertinent History Endocrine Medical History: No Pertinent History Musculoskeletal History: Other GI Medical History: No Pertinent History History: No Pertinent History Psycho-Social History: Anxiety, Depression Male Reproductive Disorders: No Pertinent History Other Medical History: shattered left foot in 2010, broken wrist during childhood - Past Surgical History Past Surgical History: No Neuro Surgical History: No Pertinent History Cardiac: No Pertinent History Respiratory: No Pertinent History Gastrointestinal: No Pertinent History Genitourinary: No Pertinent History Musculoskeletal: No Pertinent History Male Surgical History: No Pertinent History - Social History Smoking Status: Current every day smoker How long have you smoked: 22 yrs Exposure to second hand smoke: Yes Drug Use: none Patient Lives Alone: No Significant Family History: no pertinent family hx - Nursing Vital Signs Nursing Vital Signs: Initial Vital Signs Temperature 97.6 F 03/17/21 11:49 Pulse Rate 88 03/17/21 11:49 Respiratory Rate 16 03/17/21 11:49 Blood Pressure 122/75 03/17/21 11:49 O2 Sat by Pulse Oximetry 99 03/17/21 11:49 Pain Scale Pain Intensity 8 - Physical Exam General Appearance: mild distress Eyes, Ears, Nose, Throat Exam: normal ENT inspection Neck Exam: normal inspection, supple, full range of motion Cardiovascular/Respiratory Exam: no respiratory distress Abdominal Exam: non-tender, soft Back Exam: normal inspection, normal range of motion Shoulder Exam: normal inspection, non-tender Elbow/Forearm Exam: soft tissue tenderness, swelling (Swelling over the olecranon bursa) Wrist Exam: normal inspection, non-tender, no evidence of injury Hand Exam: normal inspection, non-tender, no evidence of injury Neuro/Tendon Exam: normal sensation Mental Status Exam: alert, oriented x 3 Skin Exam: warm, dry SpO2: 99 Procedures - Additional Procedures Progress: Patient has olecranon bursitis on the left and this was aspirated with an 18- gauge needle and clear serous fluid return. - Course Nursing assessment & vital signs reviewed: Yes - Progress Progress: improved - Departure Departure Disposition: Home Clinical Impression: Olecranon bursitis of left elbow Condition: Stable Critical Care Time: No Instructions: Olecranon Bursitis (DC) Prescriptions: Diclofenac Sodium 50 mg [Voltaren 50 mg] 50 mg PO TID 5 Days #15
[2021-03-17 13:16] VITALS: BP 101/72; PULSE 68; O2SAT 98
== END 2021-03-17 12:20 | disposition home or self-care (01) ==
LOC: ED 11:42
DX: M70.22 Olecranon bursitis, left elbow (principal)
CPT/HCPCS: 20605; 99283

== ENCOUNTER 2021-03-20 11:48 | Emergency (ER) | payer OTHER ==
--- NOTE | 2021-03-20 12:26 | ERPHSYRPT ---
- History of Present Illness Source: patient Exam Limitations: no limitations Patient Subjective Stated Complaint: pt reports left elbow swelling, reports he was at this ED 03/17/21 and had his elbow drained, reports pain had improved but today while working he began to have increased pain. pt is concerned for infection Triage Nursing Assessment: pt is aox3, pupils perrl, afebrile, resps easy and non labored, radial pulses strong and equal, cap refill < 3 seconds, pt skin pink warm dry. moderate swelling noted to the left elbow, skin is intact, no redness noted, ROM intact. Physician History: 35 yo wm w L olecranon bursa swelling. Pt seen in ER on 03/17/21 and had it drained. Pt denies trauma. He has mild pain. Pt is R handed. Occurred: other (8 days) Method of Injury: other (No injury) Quality: aching Severity of Pain-Max: moderate Severity of Pain-Current: mild Extremities Pain Location: elbow: right Modifying Factors: Improves With: movement Associated Symptoms: none Allergies/Adverse Reactions: naproxen [From Naprosyn] Adverse Reaction (Verified 03/20/21 12:11) kidneys shut down Home Medications: Levetiracetam [Keppra 500 mg ] 500 mg PO BID 03/17/21 [History] Hx Tetanus, Diphtheria Vaccination/Date Given: Yes Hx Influenza Vaccination/Date Given: No Hx Pneumococcal Vaccination/Date Given: No Immunizations Up to Date: Yes Travel Risk - International Travel Have you traveled outside of the country in past 3 weeks: No - Coronavirus Screening Are you exhibiting any of the following symptoms?: No Close contact with a COVID-19 positive Pt in past 14-21 Days: No - Vaccine Status Have you recieved a Covid-19 vaccination: No - Review of Systems Constitutional: No Symptoms Eyes: No Symptoms Ears, Nose, & Throat: No Symptoms, Throat Swelling Cardiac: No Symptoms Abdominal/Gastrointestinal: No Symptoms Genitourinary Symptoms: No Symptoms Skin: No Symptoms Neurological: No Symptoms Psychological: No Symptoms Endocrine: No Symptoms Hematologic/Lymphatic: No Symptoms Immunological/Allergic: No Symptoms - Past Medical History Pertinent Past Medical History: Yes Neurological History: Seizures ENT History: No Pertinent History Cardiac History: No Pertinent History Respiratory History: No Pertinent History Endocrine Medical History: No Pertinent History Musculoskeletal History: Other GI Medical History: No Pertinent History History: No Pertinent History Psycho-Social History: Anxiety, Depression Male Reproductive Disorders: No Pertinent History Other Medical History: shattered left foot in 2010, broken wrist during childhood - Past Surgical History Past Surgical History: No Neuro Surgical History: No Pertinent History Cardiac: No Pertinent History Respiratory: No Pertinent History Gastrointestinal: No Pertinent History Genitourinary: No Pertinent History Musculoskeletal: No Pertinent History Male Surgical History: No Pertinent History - Social History Smoking Status: Current every day smoker How long have you smoked: 22 yrs Exposure to second hand smoke: Yes Drug Use: none Patient Lives Alone: No Significant Family History: no pertinent family hx - Nursing Vital Signs Nursing Vital Signs: Initial Vital Signs Temperature 98.2 F 03/20/21 12:05 Pulse Rate 82 03/20/21 12:05 Respiratory Rate 18 03/20/21 12:05 Blood Pressure 121/80 03/20/21 12:05 O2 Sat by Pulse Oximetry 100 03/20/21 12:05 Pain Scale Pain Intensity 8 WNL - Physical Exam General Appearance: no apparent distress Eyes, Ears, Nose, Throat Exam: normal ENT inspection Neck Exam: normal inspection, non-tender, supple, full range of motion, No Brudzinski, No Kernig's, No meningismus, No carotid bruit Cardiovascular/Respiratory Exam: chest non-tender, normal breath sounds, regular rate/rhythm, heart sounds normal Abdominal Exam: non-tender, soft Back Exam: normal inspection, normal range of motion, No CVA tenderness, No vertebral tenderness Shoulder Exam: normal inspection Elbow/Forearm Exam: swelling (Edematous L olecranon bursa/No erythema/Good radial pulse, distal sensation, and capillary return) Wrist Exam: normal inspection Hand Exam: normal inspection Neuro/Tendon Exam: normal sensation, normal motor functions, normal tendon functions, responds to pain Mental Status Exam: alert, oriented x 3, cooperative Skin Exam: normal color, warm, dry SpO2 Interpretation: normal SpO2: 100 O2 Delivery: Room Air Ordered Tests: Active Orders 24 hr Category Date Time Status Sebastian Bandage Application -[facility] STAT Care 03/20/21 12:29 Completed - Progress Progress Note: 03/20/21 12:30 Sebastian wrap L olecranon per nursing/NVI Counseled pt/family regarding: diagnosis, need for follow-up - Departure Departure Disposition: Home Clinical Impression: Olecranon bursitis Condition: Stable Critical Care Time: No Referrals: AWAIS RIDLEY [Primary Care Provider] - Additional Instructions: Follow up with Dr. Ridley or [facility](Orthopedics) [address] [phone]/Open M-Fr till 5 Sebastian wrap for 3-4 days Motrin/Tylenol for pain
[2021-03-20 13:16] VITALS: BP 109/79; PULSE 72
[2021-03-20 17:31] VITALS: O2SAT 100
== END 2021-03-20 13:01 | disposition home or self-care (01) ==
LOC: ED 11:48
DX: M70.22 Olecranon bursitis, left elbow (principal)
CPT/HCPCS: 99283

== ENCOUNTER 2021-04-28 03:30 | Emergency (ER) | payer OTHER ==
[~2021-04-28 03:30] MED LIST: Sterile H2O 10 ml IJ ONE; solu-MEDROL ONE
[2021-04-28] MEDS ORDERED: Vibramycin 100 MG ONE (03:35)
[2021-04-28 04:43] LABS: Absolute Neutrophil Ct (ANC) 2.83 (1.4-6.9); BASOPHIL % 0.6 % (0.0-0.4); Basophil (Absolute #) 0.04 (0-0.4); Eosinophil % 9.7 % (0.00-5.0); Eosinophil (Absolute #) 0.68 (0-0.5); Hematocrit 45.8 % (42-50); Hemoglobin 14.9 gm/dl (12.5-18.0); Lymphocyte (Absolute #) 2.64 (1.0-4.6); Lymphocytes % 37.5 % (24.0-44.0); Mean Cell Volume 90.9 fl (78-100); Mean Corpuscular Hemoglobin 29.6 pg (26-32); Mean Corpuscular Hgb Concent. 32.5 g/dl (32-36); Mean Platelet Volume 12.4 fl (7.5-11.0); Monocyte (Absolute #) 0.85 (0.0-1.3); Monocytes % 12.1 % (0.0-12.0); Neutrophil % 40.1 % (36.0-66.0); Platelet Count 253 K/mm3 (150-450); Red Blood Count 5.04 M/mm3 (4.1-5.6); Red Cell Distribution Width 12.8 % (11.5-14.0)
[2021-04-28 05:12] LABS: ALBUMIN 4.3 g/dL (3.5-5.0); ALKALINE PHOSPHATASE 83 U/L (38-126); BLOOD UREA NITROGEN 14 mg/dL (9-20); CHLORIDE 104 mmol/L (98-107); Calcium 9.1 mg/dL (8.4-10.2); Carbon Dioxide 26 mmol/L (22-30); Creatinine 1 0.97 mg/dL (0.66-1.25); EST GLOMERULAR FILTRATION RATE > 60.0 ML/MIN; Glucose 91 mg/dL (74-106); INFLUENZA A NEGATIVE (NEGATIVE); INFLUENZA B NEGATIVE (NEGATIVE); RESPIRATORY SYNCTIAL VIRUS NEGATIVE (Negative); SARS-CoV-2 Xpert Express NEGATIVE (NEGATIVE); SGOT/AST 40 U/L (17-59); SGPT/ALT 27 U/L (0-50); SODIUM 138 mmol/L (137-145); Total Protein 6.8 g/dL (6.3-8.2)
--- NOTE | 2021-04-28 08:56 | XRAY ---
Indication: Cough. Comparison: January 10, 2020. Portable chest remains hyperinflated and clear. Heart not enlarged. Bony thorax intact. No new/acute findings.
== END 2021-04-28 05:10 | disposition home or self-care (01) ==
LOC: ED 03:30
DX: J20.9 Acute bronchitis, unspecified (principal); R06.02 Shortness of breath; R50.9 Fever, unspecified; R51.9 Headache, unspecified; M79.10 Myalgia, unspecified site; R06.2 Wheezing
CPT/HCPCS: 0241U; 36415; 71045; 80053; 85025; 94640; 99283; 96374; J2930; A9270-GY

== ENCOUNTER 2021-05-02 17:00 | Emergency (ER) | payer OTHER ==
[2021-05-02 17:14] VITALS: BP 149/130; PULSE 88; O2SAT 100
--- NOTE | 2021-05-02 17:42 | ERPHSYRPT ---
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 He does a lot of heavy lifting and twisting and turning and bending and crawling. He did that type of work today and around 2:00 he started having significant back pain from the mid back down to his lower back. Most of the pain is on the right paraspinous muscle region. He did not fall off a ladder. He did not fall or have any acute traumatic injury. He drove himself to the emergency department and cannot get a ride home per his report. He has no urinary issues. He has not had any back surgeries in the past. He denies urinary incontinence. He has not lost bowel control. Timing/Duration: today Method of Injury: bending, lifting, twisted, turning Back Pain Location: T-spine, paraspinous muscles (Thoracic and lumbar level right side greater than left) Severity of Pain-Max: moderate Associated Symptoms: lower back pain, muscle spasms, No urinary incontinence, No loss of bowel control, No numbness in legs/feet Previous symptoms: no prior history Allergies/Adverse Reactions: naproxen [From Naprosyn] Adverse Reaction (Verified 05/02/21 17:15) kidneys shut down Home Medications: Levetiracetam [Keppra 500 mg ] 500 mg PO BID 03/17/21 [History] Hx Tetanus, Diphtheria Vaccination/Date Given: Yes Hx Influenza Vaccination/Date Given: No Hx Pneumococcal Vaccination/Date Given: No Travel Risk - International Travel Have you traveled outside of the country in past 3 weeks: No - Coronavirus Screening Are you exhibiting any of the following symptoms?: No Close contact with a COVID-19 positive Pt in past 14-21 Days: No - Vaccine Status Have you recieved a Covid-19 vaccination: No - Review of Systems Constitutional: No Symptoms Eyes: No Symptoms Ears, Nose, & Throat: No Symptoms Respiratory: No Symptoms Cardiac: No Symptoms Abdominal/Gastrointestinal: No Symptoms Genitourinary Symptoms: No Symptoms Musculoskeletal: Back Pain Skin: No Symptoms Neurological: No Symptoms Psychological: No Symptoms Endocrine: No Symptoms Hematologic/Lymphatic: No Symptoms Immunological/Allergic: No Symptoms All Other Systems: Reviewed and Negative - Past Medical History Pertinent Past Medical History: Yes Neurological History: Seizures ENT History: No Pertinent History Cardiac History: No Pertinent History Respiratory History: No Pertinent History Endocrine Medical History: No Pertinent History Musculoskeletal History: Other GI Medical History: No Pertinent History History: No Pertinent History Psycho-Social History: Anxiety, Depression Male Reproductive Disorders: No Pertinent History Other Medical History: shattered left foot in 2010, broken wrist during childhood - Past Surgical History Past Surgical History: No Neuro Surgical History: No Pertinent History Cardiac: No Pertinent History Respiratory: No Pertinent History Gastrointestinal: No Pertinent History Genitourinary: No Pertinent History Musculoskeletal: No Pertinent History Male Surgical History: No Pertinent History - Social History Smoking Status: Current every day smoker How long have you smoked: 22 yrs Exposure to second hand smoke: Yes Drug Use: none Patient Lives Alone: No Significant Family History: no pertinent family hx - Nursing Vital Signs Nursing Vital Signs: Initial Vital Signs Temperature 98.6 F 05/02/21 17:05 Pulse Rate 88 05/02/21 17:05 Blood Pressure 149/130 05/02/21 17:05 O2 Sat by Pulse Oximetry 100 05/02/21 17:05 Pain Scale Pain Intensity [Posterior Back 8 ] Pain Intensity 8 - Physical Exam General Appearance: mild distress, alert, anxiety, thin Eye Exam: PERRL/EOMI, eyes nml inspection Ears, Nose, Throat Exam: normal ENT inspection, moist mucous membranes Neck Exam: normal inspection, non-tender, supple, full range of motion Respiratory Exam: airway intact, No chest tenderness, No respiratory distress Gastrointestinal Exam: No tenderness Rectal Exam: not done Back Exam: normal inspection, decreased range of motion, muscle spasm, No CVA tenderness, No vertebral tenderness Extremity Exam: normal inspection, normal range of motion, pelvis stable Neurologic Exam: alert, oriented x 3, cooperative, 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 as tested, normal mood/affect, sensation nml, No motor deficits, No sensory deficit Skin Exam: normal color, warm, dry Lymphatic Exam: adenopathy SpO2 Interpretation: normal SpO2: 100 O2 Delivery: Room Air - Course Nursing assessment & vital signs reviewed: Yes - Progress Progress: unchanged Counseled pt/family regarding: diagnosis, need for follow-up - Departure Departure Disposition: Home Clinical Impression: Back pain, Muscle spasm of back Condition: Stable Critical Care Time: No Referrals: AWAIS TINAJERO [Primary Care Provider] - Follow up/PCP as directed Additional Instructions: May alternate ice and heat to area of tenderness. Take your medication as prescribed. Follow-up with your primary prescribing physician for further management. May also use [id number] pain patches and apply icy hot type medications to the tender areas. Prescriptions: Prednisone 10 mg [Deltasone 10 mg] 10 mg PO TID #12 tablet Orphenadrine Citrate 100 mg [Norflex 100 MG Tablet] 100 mg PO BID #12 tab
== END 2021-05-02 17:51 | disposition home or self-care (01) ==
LOC: ED 17:00
DX: M54.6 Pain in thoracic spine (principal); M54.50 Low back pain, unspecified; M62.830 Muscle spasm of back; Z72.0 Tobacco use
CPT/HCPCS: 99283

== ENCOUNTER 2021-05-07 13:45 | Emergency (ER) | payer OTHER ==
[2021-05-07 13:59] VITALS: BP 120/75; PULSE 89; O2SAT 100
--- NOTE | 2021-05-07 14:31 | ERPHSYRPT ---
- History of Present Illness Time Seen by Provider: 05/07/21 14:00 Source: patient Exam Limitations: no limitations Patient Subjective Stated Complaint: R knee pain onset Saturday Triage Nursing Assessment: pt to ED c/o R knee pain onset 05/03. states he was crawling on his knees at work and mayhave injured area. "I dont know if I got something in there or chipped a bone, but it hurts when I get down on my knees." 5/10 at rest and 8/10 with pressure. 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 He complains of severe pain over the right patella and denies any other injury or problem. He says this is a daily duty of his. Method of Injury: unknown Occurred: days ago Quality: stabbing (Stabbing pain when pressure applied to the right patella) Severity of Pain-Max: moderate Severity of Pain-Current: none Lower Extremities Pain: knee: right (Tenderness over the patella to light pressure the knee has full range of motion and good stability. No effusion or distended bursa noted) Modifying Factors: Improves With: movement Associated Symptoms: none Allergies/Adverse Reactions: naproxen [From Naprosyn] Adverse Reaction (Verified 05/02/21 17:15) kidneys shut down Home Medications: Levetiracetam [Keppra 500 mg ] 500 mg PO BID 03/17/21 [History] Hx Tetanus, Diphtheria Vaccination/Date Given: Yes Hx Influenza Vaccination/Date Given: Yes Hx Pneumococcal Vaccination/Date Given: No Immunizations Up to Date: Yes Travel Risk - International Travel Have you traveled outside of the country in past 3 weeks: No - Coronavirus Screening Are you exhibiting any of the following symptoms?: No Close contact with a COVID-19 positive Pt in past 14-21 Days: No - Vaccine Status Have you recieved a Covid-19 vaccination: No - Review of Systems Constitutional: No Fever, No Chills Eyes: No Symptoms Ears, Nose, & Throat: No Symptoms Respiratory: No Cough, No Dyspnea Cardiac: No Chest Pain, No Edema, No Syncope Abdominal/Gastrointestinal: No Abdominal Pain, No Nausea, No Vomiting, No Diarrhea Genitourinary Symptoms: No Dysuria Musculoskeletal: Joint Pain, No Back Pain, No Neck Pain Skin: No Rash Neurological: No Dizziness, No Focal Weakness, No Sensory Changes Psychological: No Symptoms Endocrine: No Symptoms All Other Systems: Reviewed and Negative - Past Medical History Pertinent Past Medical History: Yes Neurological History: Seizures ENT History: No Pertinent History Cardiac History: No Pertinent History Respiratory History: No Pertinent History Endocrine Medical History: No Pertinent History Musculoskeletal History: Other GI Medical History: No Pertinent History History: No Pertinent History Psycho-Social History: Anxiety, Depression Male Reproductive Disorders: No Pertinent History Other Medical History: shattered left foot in 2010, broken wrist during childhood - Past Surgical History Past Surgical History: No Neuro Surgical History: No Pertinent History Cardiac: No Pertinent History Respiratory: No Pertinent History Gastrointestinal: No Pertinent History Genitourinary: No Pertinent History Musculoskeletal: No Pertinent History Male Surgical History: No Pertinent History - Social History Smoking Status: Current every day smoker How long have you smoked: 22 yrs Exposure to second hand smoke: Yes Drug Use: none Patient Lives Alone: No Significant Family History: no pertinent family hx - Nursing Vital Signs Nursing Vital Signs: Initial Vital Signs Temperature 98.2 F 05/07/21 13:53 Pulse Rate 89 05/07/21 13:53 Respiratory Rate 20 05/07/21 13:53 Blood Pressure 120/75 05/07/21 13:53 O2 Sat by Pulse Oximetry 100 05/07/21 13:53 Pain Scale Pain Intensity 5 - Physical Exam General Appearance: mild distress, alert Eyes, Ears, Nose, Throat Exam: moist mucous membranes Neck Exam: non-tender, supple Cardiovascular/Respiratory Exam: chest non-tender, normal breath sounds, regular rate/rhythm, no respiratory distress Gastrointestinal/Abdominal Exam: non-tender, guarding Back Exam: normal inspection, No vertebral tenderness Knees Exam: right knee: normal range of motion, no evidence of injury, bone tenderness (Tender to palpation over the patella), soft tissue tenderness Neuro/Tendon Exam: normal sensation, normal motor functions Mental Status Exam: alert, oriented x 3, cooperative Skin Exam: normal color, warm, dry SpO2: 100 - Course Nursing assessment & vital signs reviewed: Yes - Radiology Exams Knee X-ray Interpretation: Interpreted by me, Other (X-rays negative) Ordered Tests: Active Orders 24 hr Category Date Time Status KNEE (3 VIEWS) Stat Exams 05/07/21 Ordered - Progress Progress: unchanged - Departure Departure Disposition: Home Clinical Impression: Right knee pain Condition: Stable Critical Care Time: No Referrals: AWAIS TINAJERO [Primary Care Provider] - Follow up/PCP as directed Instructions: Knee Pain (DC) Additional Instructions: Keep the knee wrapped with an Sebastian wrap and use a knee pad when working Prescriptions: Prednisone 10 mg [Deltasone 10 mg] 10 mg PO TID #12 tablet
--- NOTE | 2021-05-07 18:56 | XRAY ---
Indication: Pain. Comparison: December 13, 2020. 3 view right knee again demonstrates tiny posterior fabella. No new/acute bony, articular, or soft tissue abnormalities.
== END 2021-05-07 15:05 | disposition home or self-care (01) ==
LOC: ED 13:45
DX: M25.561 Pain in right knee (principal); X50.0XXA Overexertion from strenuous movement or load, initial encounter; Y99.0 Civilian activity done for income or pay; Z72.0 Tobacco use
CPT/HCPCS: 73562; 99283

== ENCOUNTER 2021-11-07 04:31 | Emergency (ER) | payer OTHER ==
[2021-11-07] MEDS ORDERED: Levofloxacin 250MG Tablet PO ONE (05:00)
[2021-11-07] MEDS ORDERED: TORAdol 30 mg Injection IM ONE (05:01)
[2021-11-07] MEDS ORDERED: Levofloxacin 250MG Tablet ONE (05:03)
[2021-11-07] MEDS ORDERED: TORAdol 30 mg Injection ONE (05:03)
--- NOTE | 2021-11-07 05:07 | ERPHSYRPT ---
- History of Present Illness Time Seen by Provider: 11/07/21 05:00 Source: patient Exam Limitations: no limitations Patient Subjective Stated Complaint: pt states he stepped on a nail yesterday and it went into his rt heel. states he woke up this morning with increased pain Triage Nursing Assessment: pt alert and oriented, answers questions approp. pt ambulatory with limping gait noted. pt states it causes pain to put pressure on his rt heel. respirations nonlabored. skin warm and dry. puncture noted to bottom of rt heel. no redness noted around puncture. no drainage. pedl pulse wnl, cap refill wnl. Physician History: 36 years old male up-to-date with him immunizations/tetanus presented in the ER with chief complaint of right heel pain. Patient reports he stepped on a montse nail which went through his shoes yesterday afternoon/evening, was able to walk but this morning woke up with moderate to severe sharp pain and having difficulty weightbearing. His work involves to be on his feet all day long. Pain is better with resting. No discharge. Timing/Duration: yesterday, sudden, worse Quality: painful Severity: moderate Location: feet Possible Causes: other Associated Symptoms: No fever Allergies/Adverse Reactions: naproxen [From Naprosyn] Adverse Reaction (Verified 11/07/21 04:46) kidneys shut down Home Medications: Levetiracetam [Keppra 500 mg ] 500 mg PO BID 03/17/21 [History] Ibuprofen [Ibu] 800 mg PO TIDPRN 11/07/21 [History] Hx Tetanus, Diphtheria Vaccination/Date Given: Yes (2019) Hx Influenza Vaccination/Date Given: Yes Hx Pneumococcal Vaccination/Date Given: No Immunizations Up to Date: Yes Travel Risk - International Travel Have you traveled outside of the country in past 3 weeks: No - Coronavirus Screening Are you exhibiting any of the following symptoms?: No Close contact with a COVID-19 positive Pt in past 14-21 Days: No - Vaccine Status Have you recieved a Covid-19 vaccination: No - Review of Systems Constitutional: No Symptoms Respiratory: No Symptoms Cardiac: No Symptoms Abdominal/Gastrointestinal: No Symptoms Genitourinary Symptoms: No Symptoms Musculoskeletal: Injury Skin: Skin Lesions Neurological: No Symptoms Psychological: No Symptoms Endocrine: No Symptoms Hematologic/Lymphatic: No Symptoms Immunological/Allergic: No Symptoms - Past Medical History Pertinent Past Medical History: Yes Neurological History: Seizures ENT History: No Pertinent History Cardiac History: No Pertinent History Respiratory History: No Pertinent History Endocrine Medical History: No Pertinent History Musculoskeletal History: Other GI Medical History: No Pertinent History History: No Pertinent History Psycho-Social History: Anxiety, Depression Male Reproductive Disorders: No Pertinent History Other Medical History: shattered left foot in 2010, broken wrist during childhood - Past Surgical History Past Surgical History: No Neuro Surgical History: No Pertinent History Cardiac: No Pertinent History Respiratory: No Pertinent History Gastrointestinal: No Pertinent History Genitourinary: No Pertinent History Musculoskeletal: No Pertinent History Male Surgical History: No Pertinent History - Social History Smoking Status: Former smoker How long have you smoked: 22 yrs Exposure to second hand smoke: Yes Drug Use: none Patient Lives Alone: No Significant Family History: no pertinent family hx - Nursing Vital Signs Nursing Vital Signs: Initial Vital Signs Temperature 97.3 F 11/07/21 04:35 Pulse Rate 55 L 11/07/21 04:35 Respiratory Rate 16 11/07/21 04:35 Blood Pressure 109/75 11/07/21 04:35 O2 Sat by Pulse Oximetry 96 11/07/21 04:35 Pain Scale Pain Intensity 7 - Physical Exam General Appearance: no apparent distress, alert Eye Exam: PERRL/EOMI Ears, Nose, Throat Exam: normal ENT inspection Neck Exam: normal inspection, supple, full range of motion Respiratory Exam: normal breath sounds, lungs clear Cardiovascular Exam: regular rate/rhythm, normal heart sounds Extremity Exam: other (Puncture foot right heel. No erythema swelling but tenderness.) Neurologic Exam: alert, oriented x 3, cooperative Skin Exam: normal color SpO2 Interpretation: normal SpO2: 96 O2 Delivery: Room Air - Progress Progress: pain not gone completely Progress Note: 11/07/21 05:05 Given Toradol for symptomatic relief. Up-to-date with tetanus. Started on Levaquin. Outpatient follow-up recommended. Discussed signs symptoms of worsening needing return to ER which he seems understanding. Counseled pt/family regarding: diagnosis, need for follow-up - Departure Departure Disposition: Home Clinical Impression: Puncture wound of heel Condition: Stable Critical Care Time: No Referrals: SPENCER CUELLAR MD [Primary Care Provider] - Follow up/PCP as directed (1-2 days for reevaluation) RADHA STEVENSON DPM [ACTIVE STAFF] - Follow up/PCP as directed (1-2 days for reevaluation) Instructions: Wound Care (DC) Additional Instructions: Take Tylenol/ibuprofen which you have at home as needed. Continue with antibiotics. Follow-up outpatient with foot and ankle/podiatry. Return to ER for increasing pain/swelling/discharge. Weightbearing as tolerated. Prescriptions: Levofloxacin [Levaquin 500 MG Tablet] 500 mg PO DAILY #9 tablet
[2021-11-07 05:29] VITALS: BP 103/61; PULSE 61; O2SAT 99
== END 2021-11-07 05:30 | disposition home or self-care (01) ==
LOC: ED 04:31
DX: S91.331A Puncture wound without foreign body, right foot, initial encounter (principal); W22.09XA Striking against other stationary object, initial encounter; M79.671 Pain in right foot; Z79.899 Other long term (current) drug therapy
CPT/HCPCS: 96372; 99284; J1885; A9270-GY

== ENCOUNTER 2022-06-10 10:54 | Emergency (ER) | payer BC, OTHER ==
[2022-06-10 12:16] LABS: INFLUENZA A NEGATIVE (NEGATIVE); INFLUENZA B NEGATIVE (NEGATIVE); RESPIRATORY SYNCTIAL VIRUS NEGATIVE (Negative); SARS-CoV-2 Xpert Express NEGATIVE (NEGATIVE)
--- NOTE | 2022-06-10 12:44 | ERPHSYRPT ---
- History of Present Illness Time Seen by Provider: 06/10/22 11:15 Source: patient Exam Limitations: no limitations Patient Subjective Stated Complaint: Cough Triage Nursing Assessment: Patient ambulated back to ED and transferred self to bed. Patient A+O X3. Patient's skin pink, warm and dry. Patient complains of cough and sore throat since yesterday. Lungs clear a/p adán. Patient complains of sore throat 08/17. Physician History: Patient is a 36-year-old white male who presents with complaint of cough producing some yellow-green sputum he also complains of sore throat since yesterday. He denies any fever but has had some chills and a few sweats. Timing/Duration: abrupt onset Severity: moderate ENT Location: throat Prearrival Treatment: no prearrival treatment Modifying Factors: Improves With: nothing Associated Symptoms: chills, sore throat, difficulty swallowing Allergies/Adverse Reactions: naproxen [From Naprosyn] Adverse Reaction (Verified 06/10/22 11:06) kidneys shut down Home Medications: Levetiracetam [Keppra 500 mg ] 500 mg PO BID 03/17/21 [History] Hx Tetanus, Diphtheria Vaccination/Date Given: No Hx Influenza Vaccination/Date Given: No Hx Pneumococcal Vaccination/Date Given: No Immunizations Up to Date: Yes Travel Risk - International Travel Have you traveled outside of the country in past 3 weeks: No - Coronavirus Screening Are you exhibiting any of the following symptoms?: No Close contact with a COVID-19 positive Pt in past 14-21 Days: No - Vaccine Status Have you recieved a Covid-19 vaccination: No - Review of Systems Constitutional: Chills, No Fever Eyes: No Symptoms Ears, Nose, & Throat: No Symptoms, Painful Swallowing Respiratory: Cough, No Dyspnea Cardiac: No Chest Pain, No Edema, No Syncope Abdominal/Gastrointestinal: No Abdominal Pain, No Nausea, No Vomiting, No Diarrhea Genitourinary Symptoms: No Dysuria Musculoskeletal: No Back Pain, No Neck Pain Skin: No Rash Neurological: No Dizziness, No Focal Weakness, No Sensory Changes Psychological: No Symptoms Endocrine: No Symptoms All Other Systems: Reviewed and Negative - Past Medical History Pertinent Past Medical History: Yes Neurological History: Seizures ENT History: No Pertinent History Cardiac History: No Pertinent History Respiratory History: No Pertinent History Endocrine Medical History: No Pertinent History Musculoskeletal History: Other GI Medical History: No Pertinent History History: No Pertinent History Psycho-Social History: Anxiety, Depression Male Reproductive Disorders: No Pertinent History Other Medical History: shattered left foot in 2010, broken wrist during childhood - Past Surgical History Past Surgical History: No Neuro Surgical History: No Pertinent History Cardiac: No Pertinent History Respiratory: No Pertinent History Gastrointestinal: No Pertinent History Genitourinary: No Pertinent History Musculoskeletal: No Pertinent History Male Surgical History: No Pertinent History - Social History Smoking Status: Former smoker How long have you smoked: 22 yrs Exposure to second hand smoke: Yes Drug Use: none Patient Lives Alone: No Significant Family History: no pertinent family hx - Nursing Vital Signs Nursing Vital Signs: Initial Vital Signs Temperature 98.3 F 06/10/22 11:08 Pulse Rate 96 H 06/10/22 11:08 Respiratory Rate 18 06/10/22 11:08 Blood Pressure 107/75 06/10/22 11:08 O2 Sat by Pulse Oximetry 100 06/10/22 11:08 Pain Scale Pain Intensity 3 - Physical Exam General Appearance: mild distress, alert Eye Exam: bilateral eye: PERRL, EOMI Ear Exam: bilateral ear: auricle normal, canal normal, TM normal Nasal Exam: normal inspection Throat Exam: moist mucus membranes, pharynx swelling, pharynx tenderness, No tonsillar exudate Neck Exam: normal inspection, non-tender, supple Cardiovascular/Respiratory Exam: normal breath sounds, regular rate/rhythm Abdominal Exam: non-tender, soft Neurologic Exam: alert, oriented x 3, sensation nml, No motor deficits Skin Exam: normal color, warm, dry SpO2 Interpretation: normal SpO2: 99 O2 Delivery: Room Air - Course Nursing assessment & vital signs reviewed: Yes Lab/Rad Data: Laboratory Results 06/10/22 Range/Units 11:25 Influenza Type A Ag NEGATIVE (NEGATIVE) Influenza Type B Ag NEGATIVE (NEGATIVE) RSV (PCR) NEGATIVE (Negative) SARS-CoV-2 (PCR) NEGATIVE (NEGATIVE) - Progress Progress: unchanged - Departure Departure Disposition: Home Clinical Impression: Pharyngitis Condition: Stable Critical Care Time: No Referrals: SPENCER CUELLAR MD [Primary Care Provider] - Follow up/PCP as directed Instructions: Sore Throat, Adult (DC) Prescriptions: Cephalexin Mh 500 mg [Keflex 500 mg] 500 mg PO QID #40 cap
[2022-06-10 12:45] VITALS: BP 111/69; PULSE 98; O2SAT 84
== END 2022-06-10 12:49 | disposition home or self-care (01) ==
LOC: ED 10:54
DX: J02.9 Acute pharyngitis, unspecified (principal); R05.9 Cough, unspecified; Z79.899 Other long term (current) drug therapy; Z28.310 Unvaccinated for COVID-19
CPT/HCPCS: 0241U; 99282

== ENCOUNTER 2023-01-10 09:10 | Day surgery (SDC) | payer BC ==
--- NOTE | 2023-01-04 14:13 | HP ---
DATE OF SURGERY: 01/10/2023 HISTORY OF PRESENT ILLNESS: The patient is a 37-year-old male presents with a subcutaneous mass on his forehead. He then tried to have this removed in the office of his family doctor and it was very bloody. He had a CT of his head fairly unremarkable other than some inflamed sinuses. The patient was seen by Dr. Jacobsen and deemed acceptable for surgical removal of his forehead mass. PAST MEDICAL HISTORY: Bipolar schizophrenia. Seizure. Chronic kidney disease. Sinus infections. Allergic rhinitis. Chronic back pain. PAST SURGICAL HISTORY: None reported. ALLERGIES: NAPROXEN. MEDICATIONS: Tramadol, gabapentin, fexofenadine, Keppra. FAMILY HISTORY: Diabetes, Parkinson's. SOCIAL HISTORY: Current every day smoker. Reports history of meth and marijuana use. REVIEW OF SYSTEMS: CONSTITUTIONAL: Denies fever or chills. CHEST: Denies shortness of breath. CVS: Denies chest pain. ABDOMEN: Denies abdominal pain. PHYSICAL EXAMINATION: GENERAL: No acute distress. CHEST: Nonlabored. No shortness of breath. CVS: Regular rate and rhythm. ABDOMEN: Soft. INTEGUMENTARY: He has a 2 cm forehead cyst. IMPRESSION: Subcutaneous mass of the forehead. PLAN: Excision of forehead subcutaneous mass with Dr. Kota Jacobsen. As dictated by Yoly Amos NP.
[~2023-01-10 09:10] MED LIST changes: +CEFAZOLIN 2 GM-D5W BAG** 2 GM/50 ML ML IV SCH; +Lactated Ringers 1,000 ML IV SCH; +Sensorcaine 0.25% 10 ML ONE; -Sterile H2O 10 ml IJ ONE; -solu-MEDROL ONE
[2023-01-10] MEDS ORDERED: CEFAZOLIN 2 GM-D5W BAG** 2 GM/50 ML ML IV ONE (09:15)
[2023-01-10] MEDS ORDERED: Lactated Ringers 1,000 ML IV ONE ×2 (09:15→13:35)
[2023-01-10] MEDS ORDERED: DIPRIVAN 200 MG/20 ML IV ONE (11:15)
[2023-01-10] MEDS ORDERED: BRIDION 200MG/2ML IV ONE (11:15)
[2023-01-10] MEDS ORDERED: Xylocaine-Mpf 2% 5 Ml Vial ONE (11:15)
[2023-01-10] MEDS ORDERED: TORAdol 30 mg Injection ONE (11:15)
[2023-01-10] MEDS ORDERED: Zemuron 100 MG/10 ML ONE (11:15)
[2023-01-10] MEDS ORDERED: Zofran 4 MG/2 ML VIAL ONE (11:15)
[2023-01-10] MEDS ORDERED: SUBLIMAZE 100 MCG/2 ML ONE (11:15)
[2023-01-10] MEDS ORDERED: Versed 2 MG/2 ML Injection ONE (11:15)
[2023-01-10] MEDS ORDERED: Decadron 4 MG INJ ONE (11:15)
[2023-01-10] MEDS ORDERED: BACIGUENT 30 GM ONE (12:18)
--- NOTE | 2023-01-10 13:28 | OP ---
SURGERY DATE/TIME: 01/10/2023 1144 PREOPERATIVE DIAGNOSIS: Two subcutaneous masses of forehead, one - 2 cm and one - 1 cm. POSTOPERATIVE DIAGNOSIS: Two subcutaneous masses of forehead, one - 2 cm and one - 1 cm. PROCEDURE: Excision and closure of these two forehead masses that are deep subcutaneous. SURGEON: Kota Jacobsen M.D. ANESTHESIA: General. COMPLICATIONS: None. CONDITION: Stable. INDICATION: DESCRIPTION OF PROCEDURE: Two areas marked and taken to surgery. General anesthetic. Time out performed. Routine prep and drape. A transverse incision. They were under the fascia. The smaller was 1 cm and the larger one 2 cm. They were removed in their entirety. Hemostasis obtained with sutures of 3-0 Vicryl. Skin closed with 4-0 Prolene. Sterile ointment applied. Patient tolerated the procedure satisfactorily.
[2023-01-10 13:40] VITALS: TEMP 96.9; O2SAT 100
[2023-01-10 13:58] VITALS: BP 126/51; PULSE 58; RESP 18
== END 2023-01-10 14:05 | disposition home or self-care (01) ==
LOC: SDC 09:10
PROVIDERS: ATTEND Surgery
DX: D17.0 Benign lipomatous neoplasm of skin and subcutaneous tissue of head, face and neck (principal); R22.0 Localized swelling, mass and lump, head
CPT/HCPCS: 36415; 84484; 93005; J0690; J1100; J1885; J2250; J2405; J2704; J3010; A9270-GY

== ENCOUNTER 2023-02-26 08:13 | Emergency (ER) | payer BC ==
[2023-02-26 08:46] VITALS: TEMP 100.8
[2023-02-26] MEDS ORDERED: Zofran 4 MG/2 ML VIAL IV STA (08:52)
[2023-02-26] MEDS ORDERED: Sodium Chloride 0.9% 1000 ML 1,000 ML IV STA (08:52)
[2023-02-26] MEDS ORDERED: Zofran 4 MG/2 ML VIAL ONE (09:01)
[2023-02-26] MEDS ORDERED: Sodium Chloride 0.9% 1000 ML 1,000 ML ONE (09:01)
[2023-02-26] MEDS ORDERED: TYLENOL 325 MG PO ONE (09:09)
[2023-02-26 09:13] LABS: Absolute Neutrophil Ct (ANC) 6.08 x10^3/uL (1.4-6.9); BASOPHIL % 0.4 % (0.0-0.4); Basophil (Absolute #) 0.03 x10^3/uL (0-0.4); Eosinophil % 0.4 % (0.00-5.0); Eosinophil (Absolute #) 0.03 x10^3/uL (0-0.5); Hematocrit 43.8 % (42-50); Hemoglobin 14.7 g/dL (12.5-18.0); IMMATURE GRAN # 0.02 x10^3u/L (0.00-0.03); IMMATURE GRAN % 0.3 % (0.00-0.4); Lymphocyte (Absolute #) 0.37 x10^3/uL (1.0-4.6); Lymphocytes % 5.1 % (24.0-44.0); Mean Cell Volume 87.3 fL (78-100); Mean Corpuscular Hemoglobin 29.3 pg (26-32); Mean Corpuscular Hgb Concent. 33.6 g/dL (32-36); Mean Platelet Volume 12.8 fL (7.5-11.0); Monocyte (Absolute #) 0.74 x10^3/uL (0.0-1.3); Monocytes % 10.2 % (0.0-12.0); Neutrophil % 83.6 % (36.0-66.0); Platelet Count 183 x10^3/uL (150-450); Red Blood Count 5.02 x10^6/uL (4.1-5.6); Red Cell Distribution Width 11.9 % (11.5-14.0); White Blood Count 7.3 x10^3/uL (4.0-10.5)
[2023-02-26] MEDS ORDERED: TYLENOL 325 MG ONE (09:14)
--- NOTE | 2023-02-26 09:16 | XRAY ---
Indication: Cough. Covid 19 symptoms. Comparison: April 28, 2021 Portable apical lordotic chest again demonstrates normal heart, lungs, and bony thorax.
--- NOTE | 2023-02-26 09:16 | ERPHSYRPT ---
- History of Present Illness Time Seen by Provider: 02/26/23 08:40 Source: patient Exam Limitations: no limitations Patient Subjective Stated Complaint: Pt c/o of headache, vomiting and fever since yesterday Triage Nursing Assessment: Pt brought into the ER by his girlfriend, febrile, rates head pain as 7/10, has vomitted this morning, pulses normal, skin n/h/d, no difficulty breathing Physician History: Patient is a 37-year-old male presents to our ED for evaluation of a fever headache nausea, cough vomiting diarrhea body aches and fatigue that started yesterday. Patient vomited once. No rash. No trauma. Patient states there are members of his household with similar symptoms. No associated chest pain or shortness of breath. Symptoms are constant. Symptoms are moderate in intensity. No specific worsening improving factors. Patient voices no other complaints or concerns at this time. Portions of this note were created with voice recognition technology. There may be grammatical, spelling, punctuation or sound alike errors Timing/Duration: yesterday Severity: moderate Modifying Factors: Improves With: nothing Associated Symptoms: nausea, vomiting, cough, fever, headaches, loss of appetite, No shortness of breath, No chest pain, No rash, No syncope, No seizure Allergies/Adverse Reactions: naproxen [From Naprosyn] Adverse Reaction (Verified 02/26/23 08:45) kidneys shut down Home Medications: Fexofenadine HCl 180 mg PO DAILY 12/03/22 [History] Gabapentin [Neurontin ] 2 cap PO TID 12/03/22 [History] Levetiracetam 250 MG [Keppra 250 MG] 500 mg PO BID 12/03/22 [History] Tramadol HCl 50 mg [Ultram 50 mg] 50 mg PO Q8H PRN PRN 12/03/22 [History] Cholecalciferol (Vitamin D3) [Vitamin D3] 3 tab PO DAILY 01/10/23 [History] Fluticasone Propionate [Flonase NASAL] 1 inh INTRANASAL DAILY 01/10/23 [History] Hx Tetanus, Diphtheria Vaccination/Date Given: No Hx Influenza Vaccination/Date Given: No Hx Pneumococcal Vaccination/Date Given: No Travel Risk - International Travel Have you traveled outside of the country in past 3 weeks: No - Coronavirus Screening Are you exhibiting any of the following symptoms?: Yes Symptoms: Fever, Vomiting/Diarrhea, Headaches/Body Aches/Fatigue Close contact with a COVID-19 positive Pt in past 14-21 Days: No - Vaccine Status Have you recieved a Covid-19 vaccination: No - Review of Systems Constitutional: No Symptoms Eyes: No Symptoms Ears, Nose, & Throat: No Symptoms Respiratory: No Symptoms Cardiac: No Symptoms Abdominal/Gastrointestinal: No Symptoms Genitourinary Symptoms: No Symptoms Musculoskeletal: No Symptoms Skin: No Symptoms Neurological: No Symptoms Psychological: No Symptoms Endocrine: No Symptoms Hematologic/Lymphatic: No Symptoms Immunological/Allergic: No Symptoms - Past Medical History Pertinent Past Medical History: Yes Neurological History: No Pertinent History ENT History: No Pertinent History Cardiac History: No Pertinent History Respiratory History: No Pertinent History Endocrine Medical History: No Pertinent History Musculoskeletal History: No Pertinent History GI Medical History: Hernia History: Other Psycho-Social History: Anxiety, Bipolar, Depression, Other Male Reproductive Disorders: No Pertinent History Other Medical History: kidneys were shuting down 2015. - Past Surgical History Past Surgical History: Yes Neuro Surgical History: No Pertinent History Cardiac: No Pertinent History Respiratory: No Pertinent History Gastrointestinal: No Pertinent History Genitourinary: No Pertinent History Musculoskeletal: No Pertinent History Male Surgical History: No Pertinent History - Social History Smoking Status: Former smoker How long have you smoked: 22 yrs Exposure to second hand smoke: No Drug Use: none Patient Lives Alone: No Significant Family History: no pertinent family hx - Nursing Vital Signs Nursing Vital Signs: Initial Vital Signs Temperature 100.8 F 02/26/23 08:15 Pulse Rate 97 H 02/26/23 08:15 Respiratory Rate 19 02/26/23 08:15 Blood Pressure 108/78 02/26/23 08:15 O2 Sat by Pulse Oximetry 98 02/26/23 08:15 Pain Scale Pain Intensity 5 - Physical Exam General Appearance: no apparent distress, alert Eye Exam: PERRL/EOMI, eyes nml inspection Ears, Nose, Throat Exam: normal ENT inspection, TMs normal, pharynx normal, moist mucous membranes Neck Exam: normal inspection, non-tender, supple, full range of motion Respiratory Exam: normal breath sounds, lungs clear, airway intact, No respiratory distress Cardiovascular Exam: regular rate/rhythm, normal heart sounds, normal peripheral pulses Gastrointestinal/Abdomen Exam: soft, normal bowel sounds, No tenderness, No mass Back Exam: normal inspection, normal range of motion, No CVA tenderness, No vertebral tenderness Extremity Exam: normal inspection, normal range of motion, pelvis stable Neurologic Exam: alert, oriented x 3, cooperative, normal mood/affect, nml cerebellar function, nml station & gait, sensation nml, No motor deficits Skin Exam: normal color, warm, dry, No rash Lymphatic Exam: No adenopathy SpO2 Interpretation: normal SpO2: 98 O2 Delivery: Room Air - Course Nursing assessment & vital signs reviewed: Yes EKG Interpreted by Me: RATE (93), Sinus Rhythm, NORMAL AXIS, NORMAL INTERVALS - Radiology Exams Chest X-ray Interpretation: Teleradiologist Report (Normal heart lungs bony thorax) Ordered Tests: Active Orders 24 hr Category Date Time Status Photographic Editor STAT Care 02/26/23 08:53 Completed EKG-ER Only STAT Care 02/26/23 08:52 Completed IV Insertion STAT Care 02/26/23 08:52 Completed Pulse Oximetry (ED) STAT Care 02/26/23 08:52 Completed CHEST 1 VIEW (PORTABLE) Stat Exams 02/26/23 08:53 Completed BLOOD CULTURE Stat Lab 02/26/23 09:18 Received CBC W DIFF Stat Lab 02/26/23 08:30 Completed CMP Stat Lab 02/26/23 08:30 Completed Lactic Acid Stat Lab 02/26/23 08:52 Completed UA W/RFX UR CULTURE Stat Lab 02/26/23 08:53 Ordered Medication Summary Discontinued Medications Generic Name Dose Route Start Last Admin Trade Name Shelia PRN Reason Stop Dose Admin Acetaminophen 975 mg 02/26/23 09:09 02/26/23 09:15 Acetaminophen 325 Mg Tablet PO 02/26/23 09:10 975 mg STAT ONE Administration Acetaminophen Confirm 02/26/23 09:14 Acetaminophen 325 Mg Tablet Administered 02/26/23 09:15 Dose 975 mg .ROUTE .STK-MED ONE Sodium Chloride 1,000 mls @ 999 mls/hr 02/26/23 08:52 02/26/23 10:09 Sodium Chloride 0.9% 1000 Ml IV 02/26/23 09:52 Infused .Q1H1M STA Infusion Sodium Chloride Confirm 02/26/23 09:01 Sodium Chloride 0.9% 1000 Ml Administered 02/26/23 09:02 Dose 1,000 mls @ ud .ROUTE .STK-MED ONE Ondansetron HCl 4 mg 02/26/23 08:52 02/26/23 09:05 Ondansetron Hcl 4 Mg/2 Ml Vial IV 02/26/23 08:53 4 mg STAT STA Administration Ondansetron HCl Confirm 02/26/23 09:01 Ondansetron Hcl 4 Mg/2 Ml Vial Administered 02/26/23 09:02 Dose 4 mg .ROUTE .STK-MED ONE Lab/Rad Data: Laboratory Result Diagrams 02/26/23 08:30 02/26/23 08:30 Laboratory Results 02/26/23 02/26/23 02/26/23 Range/Units 09:10 08:52 08:30 WBC (4.0-10.5) x10^3/uL RBC (4.1-5.6) x10^6/uL Hgb (12.5-18.0) g/dL Hct (42-50) % MCV (78-100) fL MCH (26-32) pg MCHC (32-36) g/dL RDW (11.5-14.0) % Plt Count (150-450) x10^3/uL MPV (7.5-11.0) fL Gran % (36.0-66.0) % Immature Gran % (Auto) (0.00-0.4) % Nucleat RBC Rel Count (0.00-0.1) % Eos # (Auto) (0-0.5) x10^3/uL Immature Gran # (Auto) (0.00-0.03) x10^3u/L Absolute Lymphs (auto) (1.0-4.6) x10^3/uL Absolute Monos (auto) (0.0-1.3) x10^3/uL Absolute Nucleated RBC (0.00-0.01) x10^3u/L Lymphocytes % (24.0-44.0) % Monocytes % (0.0-12.0) % Eosinophils % (0.00-5.0) % Basophils % (0.0-0.4) % Absolute Granulocytes (1.4-6.9) x10^3/uL Basophils # (0-0.4) x10^3/uL Sodium 134 L (137-145) mmol/L Potassium 4.0 (3.5-5.1) mmol/L Chloride 102 (98-107) mmol/L Carbon Dioxide 23 (22-30) mmol/L Anion Gap 13.4 (5-15) MEQ/L BUN 10 (9-20) mg/dL Creatinine 1.09 (0.66-1.25) mg/dL Estimated GFR > 60.0 ML/MIN Glucose 125 H (74-106) mg/dL Lactic Acid 1.1 (0.4-2.0) Calcium 9.1 (8.4-10.2) mg/dL Total Bilirubin 0.60 (0.2-1.3) mg/dL AST 33 (17-59) U/L ALT 23 (0-50) U/L Alkaline Phosphatase 94 (38-126) U/L Serum Total Protein 7.8 (6.3-8.2) g/dL Albumin 4.7 (3.5-5.0) g/dL Influenza Type A Ag NEGATIVE (NEGATIVE) Influenza Type B Ag NEGATIVE (NEGATIVE) RSV (PCR) NEGATIVE (NEGATIVE) SARS-CoV-2 (PCR) POSITIVE A (NEGATIVE) Slides for Path Review 02/26/23 Range/Units 08:30 WBC 7.3 (4.0-10.5) x10^3/uL RBC 5.02 (4.1-5.6) x10^6/uL Hgb 14.7 (12.5-18.0) g/dL Hct 43.8 (42-50) % MCV 87.3 (78-100) fL MCH 29.3 (26-32) pg MCHC 33.6 (32-36) g/dL RDW 11.9 (11.5-14.0) % Plt Count 183 (150-450) x10^3/uL MPV 12.8 H (7.5-11.0) fL Gran % 83.6 H (36.0-66.0) % Immature Gran % (Auto) 0.3 (0.00-0.4) % Nucleat RBC Rel Count 0.0 (0.00-0.1) % Eos # (Auto) 0.03 (0-0.5) x10^3/uL Immature Gran # (Auto) 0.02 (0.00-0.03) x10^3u/L Absolute Lymphs (auto) 0.37 L (1.0-4.6) x10^3/uL Absolute Monos (auto) 0.74 (0.0-1.3) x10^3/uL Absolute Nucleated RBC 0.00 (0.00-0.01) x10^3u/L Lymphocytes % 5.1 L (24.0-44.0) % Monocytes % 10.2 (0.0-12.0) % Eosinophils % 0.4 (0.00-5.0) % Basophils % 0.4 (0.0-0.4) % Absolute Granulocytes 6.08 (1.4-6.9) x10^3/uL Basophils # 0.03 (0-0.4) x10^3/uL Sodium (137-145) mmol/L Potassium (3.5-5.1) mmol/L Chloride (98-107) mmol/L Carbon Dioxide (22-30) mmol/L Anion Gap (5-15) MEQ/L BUN (9-20) mg/dL Creatinine (0.66-1.25) mg/dL Estimated GFR ML/MIN Glucose (74-106) mg/dL Lactic Acid (0.4-2.0) Calcium (8.4-10.2) mg/dL Total Bilirubin (0.2-1.3) mg/dL AST (17-59) U/L ALT (0-50) U/L Alkaline Phosphatase (38-126) U/L Serum Total Protein (6.3-8.2) g/dL Albumin (3.5-5.0) g/dL Influenza Type A Ag (NEGATIVE) Influenza Type B Ag (NEGATIVE) RSV (PCR) (NEGATIVE) SARS-CoV-2 (PCR) (NEGATIVE) Slides for Path Review YES - Progress Progress: improved Progress Note: Patient is a 37-year-old male presents to our ED for evaluation of fever, headache myalgias nausea vomiting diarrhea. No neck pain. No nuchal rigidity. No photophobia. No meningeal signs. Physical exam essentially nonremarkable otherwise. He EKG was normal sinus rhythm. Chest x-ray negative for pneumonia. Normal heart lungs and bony thorax. Blood cultures obtained. CBC CMP essentially nonremarkable. COVID test positive. Lactic acid within normal limits at 1.1. Urinalysis not obtained. Patient received normal saline and Zofran and acetaminophen. Patient reassessed. Patient states his headache was almost completely resolved. Patient requesting discharge. Patient sent home with a prescription for Toradol. Patient agrees to follow-up with primary care doctor within 48 hours for reevaluation. Portions of this note were created with voice recognition technology. There may be grammatical, spelling, punctuation or sound alike errors Complexity of problems addressed is acute complicated with systemic manife station. No critical care time Complexity of data reviewed and analyzed is moderate. Test ordered, reviewed and analyzed. Clinical correlation made between the findings and history and physical examination. Dr. Rincon independently reviewed the EKG. Chest x-ray report reviewed as well. Risk of complication and or risk of morbidity/mortality of patient management is moderate. A prescription for Toradol forwarded to patient's pharmacy. Vital stable. Diagnosis is COVID/viral syndrome. Time spent to discharge patient approximately 15 minutes. Plan of care established for shared decision making. No social determinants of health present to impede follow-up. Portions of this note were created with voice recognition technology. There may be grammatical, spelling, punctuation or sound alike errors 02/26/23 12:30 Counseled pt/family regarding: diagnosis, need for follow-up - Departure Departure Disposition: Home Clinical Impression: COVID-19 Condition: Stable Critical Care Time: No Referrals: SPENCER CUELLAR MD [Primary Care Provider] - Follow up/PCP as directed Instructions: COVID-19 (DC), Preventing the Spread of an Infectious Disease Additional Instructions: Discharge/Care Plan HO PRIEST was seen on 02/26/23 in the Emergency Room. The patient was counseled regarding Diagnosis,Lab results, Imaging studies, need for follow up and when to return to the Emergency Room. Prescriptions given: Discharge Note I have spoken with the patient and/or caregivers. I have explained the patient's condition, diagnosis and treatment plan based on the information available to me at this time. I have answered the patient's and/or caregiver's questions and addressed any concerns. The patient and/or caregivers have as good understanding of the patient's diagnosis, condition and treatment plan as can be expected at this point. The vital signs have been stable. The patient's condition is stable and appropriate for discharge from the emergency department. The patient will pursue further outpatient evaluation with the primary care physician or other designated or consulting physician as outlined in the discharge instructions. The patient and/or caregivers are agreeable to this plan of care and follow-up instructions have been explained in detail. The patient and/or caregivers have received these instruction. The patient/and or caregivers are aware that any significant change in condition or worsening of symptoms kenrick uld prompt an immediate return to this or the closest emergency department or call 911. Prescriptions: Ketorolac Trometh 10 mg Tab [TORAdol 10 MG TABLET] 10 mg PO TID 5 Days #15 tablet
[2023-02-26 09:20] LABS: ALBUMIN 4.7 g/dL (3.5-5.0); ALKALINE PHOSPHATASE 94 U/L (38-126); ANION GAP 13.4 MEQ/L (5-15); BLOOD UREA NITROGEN 10 mg/dL (9-20); CHLORIDE 102 mmol/L (98-107); Calcium 9.1 mg/dL (8.4-10.2); Carbon Dioxide 23 mmol/L (22-30); Creatinine 1 1.09 mg/dL (0.66-1.25); EST GLOMERULAR FILTRATION RATE > 60.0 ML/MIN; Glucose 125 mg/dL (74-106); SGOT/AST 33 U/L (17-59); SGPT/ALT 23 U/L (0-50); SODIUM 134 mmol/L (137-145); Total Protein 7.8 g/dL (6.3-8.2)
[2023-02-26 09:39] VITALS: O2SAT 98
[2023-02-26 09:44] LABS: Slide Review 1 YES
[2023-02-26 10:04] LABS: INFLUENZA A NEGATIVE (NEGATIVE); INFLUENZA B NEGATIVE (NEGATIVE); RESPIRATORY SYNCTIAL VIRUS NEGATIVE (NEGATIVE)
[2023-02-26 10:05] LABS: SARS-CoV-2 Xpert Express POSITIVE (NEGATIVE)
[2023-02-26 11:06] VITALS: BP 103/79; PULSE 92; RESP 21
== END 2023-02-26 11:19 | disposition home or self-care (01) ==
LOC: ED 08:13
DX: U07.1 COVID-19 (principal); R50.9 Fever, unspecified; R51.9 Headache, unspecified; R11.0 Nausea; R05.1 Acute cough; R19.7 Diarrhea, unspecified; M79.10 Myalgia, unspecified site; R53.83 Other fatigue; Z79.891 Long term (current) use of opiate analgesic; Z79.899 Other long term (current) drug therapy; Z28.310 Unvaccinated for COVID-19
CPT/HCPCS: 0241U; 36000; 36415; 71045; 80053; 83605; 85025; 87040; 93005; 93041; 94760; 96360; 96374; 99284; J2405; A9270-GY

== ENCOUNTER 2023-10-19 12:12 | Emergency (ER) | payer OTHER ==
--- NOTE | 2023-10-19 12:19 | ERPHSYRPT ---
- History of Present Illness Time Seen by Provider: 10/19/23 12:18 Source: patient Exam Limitations: no limitations Physician History: This is a 38-year-old white male patient of Dr. 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 He woke up this morning had several lesions on his face and on his hands and forearms. They do itch. He noticed these skin lesions at 8 AM this morning. Patient has a history of anxiety, bipolar disorder and seizure disorder. Quality: itchy Severity: mild Location: face, hands, extremities (Bilateral upper extremities) Possible Causes: insect bite, poison anitha Modifying Factors: Improves With: other Associated Symptoms: denies symptoms Allergies/Adverse Reactions: naproxen [From Naprosyn] Adverse Reaction (Verified 02/26/23 08:45) kidneys shut down Home Medications: Fexofenadine HCl 180 mg PO DAILY 12/03/22 [History] Gabapentin [Neurontin ] 2 cap PO TID 12/03/22 [History] Levetiracetam 250 MG [Keppra 250 MG] 500 mg PO BID 12/03/22 [History] Tramadol HCl 50 mg [Ultram 50 mg] 50 mg PO Q8H PRN PRN 12/03/22 [History] Cholecalciferol (Vitamin D3) [Vitamin D3] 3 tab PO DAILY 01/10/23 [History] Fluticasone Propionate [Flonase NASAL] 1 inh INTRANASAL DAILY 01/10/23 [History] Hx Tetanus, Diphtheria Vaccination/Date Given: No Hx Influenza Vaccination/Date Given: No Hx Pneumococcal Vaccination/Date Given: No Travel Risk - International Travel Have you traveled outside of the country in past 3 weeks: No - Emerging Infectious Disease Are you exhibiting symptoms associated with any current EIDs: No - Review of Systems Constitutional: No Symptoms Eyes: No Symptoms Ears, Nose, & Throat: No Symptoms Respiratory: No Symptoms Cardiac: No Symptoms Abdominal/Gastrointestinal: No Symptoms Genitourinary Symptoms: No Symptoms Musculoskeletal: No Symptoms Skin: Other (Skin lesions face bilateral hands and bilateral forearms) Neurological: No Symptoms Psychological: No Symptoms Endocrine: No Symptoms Hematologic/Lymphatic: No Symptoms Immunological/Allergic: No Symptoms All Other Systems: Reviewed and Negative - Past Medical History Pertinent Past Medical History: Yes Neurological History: Seizures, Stroke, Other ENT History: No Pertinent History Cardiac History: No Pertinent History Respiratory History: Bronchitis, Other Endocrine Medical History: Other Musculoskeletal History: Fractures, Other GI Medical History: Hernia History: Other Psycho-Social History: Anxiety, Bipolar, Depression, Other Male Reproductive Disorders: No Pertinent History Other Medical History: hx of acute kidney failure, COVID-19 x1, R boxer's fxL wrist fx, L ankle fx, 2 cyst removals from forehead, scoliosis - Past Surgical History Past Surgical History: Yes Neuro Surgical History: No Pertinent History Cardiac: No Pertinent History Respiratory: No Pertinent History Gastrointestinal: No Pertinent History Genitourinary: No Pertinent History Musculoskeletal: No Pertinent History Male Surgical History: No Pertinent History Significant Family History: no pertinent family hx - Social History Smoking Status: Former smoker How long have you smoked: 22 yrs Exposure to second hand smoke: No Drug Use: none Patient Lives Alone: No - Nursing Vital Signs Nursing Vital Signs: Initial Vital Signs Temperature 98.1 F 10/19/23 12:16 Pulse Rate 70 10/19/23 12:16 Respiratory Rate 20 10/19/23 12:16 Blood Pressure 112/92 10/19/23 12:16 O2 Sat by Pulse Oximetry 100 10/19/23 12:16 Pain Scale Pain Intensity 0 - Physical Exam General Appearance: no apparent distress, alert Eye Exam: PERRL/EOMI, eyes nml inspection Ears, Nose, Throat Exam: normal ENT inspection, moist mucous membranes Neck Exam: normal inspection, non-tender, supple, full range of motion Respiratory Exam: airway intact, No chest tenderness, No respiratory distress, No wheezing, No stridor Gastrointestinal/Abdomen Exam: No tenderness Rectal Exam: not done Back Exam: normal inspection, normal range of motion, No CVA tenderness, No vertebral tenderness Extremity Exam: normal inspection, normal range of motion, pelvis stable Neurologic Exam: alert, oriented x 3, cooperative, home 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 No cellulitis at this time) Lymphatic Exam: No adenopathy SpO2 Interpretation: normal O2 Delivery: Room Air - Course Nursing assessment & vital signs reviewed: Yes - Progress Progress: unchanged Progress Note: 10/19/23 12:37 My medical decision making and the assignment of low complexity to this patient's medical issue today is based on review of the patient's past medical history, review the patient's medication list, review of patient drug allergy list, history present illness and physical findings on examination. No laboratory radiographic studies are necessary in this patient. Differential diagnosis includes contact dermatitis, poison anitha, insect bites Counseled pt/family regarding: diagnosis, need for follow-up Medical Desision Making - Independent Historian Additional History obtained from: Spouse - Diagnostic Testing Diagnostic test were ordered, analyzed, and reviewed by me: No - Risk of complications The pt has a mod risk of morbidity or mortality based on: Need for prescription drug management - Departure Departure Disposition: Home Clinical Impression: Dermatitis due to plants, including poison anitha, sumac, and oak, Insect bites Condition: Stable Critical Care Time: No Referrals: SPENCER CUELLAR MD [Primary Care Provider] - Follow up/PCP as directed Additional Instructions: Keep all rash/bite sites clean daily with soap and water. Do not apply oi ntments to the sites. Take Benadryl [id number] 25 mg orally 3 times a day for 5 days. If you are concerned about the onset of cellulitis, which you do not appear to have now, then go ahead and fill the Keflex prescription. Call your primary care provider on 10/21/2023, to make a follow-up appointment to be seen in the next 3 to 5 days. Prescriptions: Prednisone 10 mg [Deltasone 10 mg] 10 mg PO TID #12 tablet Cephalexin Mh 500 mg [Keflex 500 mg] 500 mg PO TID #21 cap Famotidine 20 mg [Pepcid 20 MG] 20 mg PO DAILY #10 tablet
[2023-10-19 12:20] VITALS: BP 112/92; PULSE 70; RESP 20; TEMP 98.1; O2SAT 98
[2023-10-19] MEDS ORDERED: DELTASONE 20 MG ONE (12:47)
[2023-10-19] MEDS ORDERED: BENADRYL 25 MG CAPSULE ONE (12:47)
[2023-10-19] MEDS ORDERED: Pepcid 20 MG ONE (12:47)
[2023-10-19] MEDS: DELTASONE 20 MG PO ONE (12:49)
[2023-10-19] MEDS: Pepcid 20 MG PO ONE (12:50)
[2023-10-19] MEDS: BENADRYL 25 MG CAPSULE PO ONE (12:50)
== END 2023-10-19 13:05 | disposition home or self-care (01) ==
LOC: ED 12:12
DX: L25.5 Unspecified contact dermatitis due to plants, except food (principal); S00.86XA Insect bite (nonvenomous) of other part of head, initial encounter; S50.862A Insect bite (nonvenomous) of left forearm, initial encounter; S50.861A Insect bite (nonvenomous) of right forearm, initial encounter; S60.562A Insect bite (nonvenomous) of left hand, initial encounter; S60.561A Insect bite (nonvenomous) of right hand, initial encounter; W57.XXXA Bitten or stung by nonvenomous insect and other nonvenomous arthropods, initial encounter; Y93.H2 Activity, gardening and landscaping; Y99.0 Civilian activity done for income or pay; Z79.52 Long term (current) use of systemic steroids; Z79.899 Other long term (current) drug therapy
CPT/HCPCS: 99282; A9270-GY

== ENCOUNTER 2024-01-23 18:07 | Emergency (ER) | payer OTHER ==
[2024-01-23] MEDS ORDERED: DELTASONE 20 MG ONE (21:00)
[2024-01-23 21:02] VITALS: TEMP 97.2
[2024-01-23] MEDS: DELTASONE 20 MG PO ONE (21:02)
[2024-01-23 21:05] VITALS: O2SAT 96
--- NOTE | 2024-01-23 21:05 | ERPHSYRPT ---
- History of Present Illness Time Seen by Provider: 01/23/24 20:55 Source: patient Exam Limitations: no limitations Physician History: 38 years old presented in the ER with complaint of rash on the arms, scalp for almost over a week. Patient report he was in [place] before the rash started. He was evaluated at urgent care, got a steroid shot and has been applying calamine lotion with minimal relief. No difficulty breathing or swallowing. Reports increased itching especially in the forearms. Patient has linear streaks of red raised rash with few vesicles. Lungs clear to auscultation. No signs of distress. I believe patient needs short course of steroid and started on prednisone. Recommended continue with Benadryl and calamine. Outpatient follow-up recommended Allergies/Adverse Reactions: naproxen [From Naprosyn] Adverse Reaction (Verified 01/23/24 20:51) kidneys shut down Home Medications: Gabapentin [Neurontin ] 2 cap PO TID 12/03/22 [History] Levetiracetam 250 MG [Keppra 250 MG] 500 mg PO BID 12/03/22 [History] Hx Tetanus, Diphtheria Vaccination/Date Given: No Hx Influenza Vaccination/Date Given: No Hx Pneumococcal Vaccination/Date Given: No Travel Risk - Emerging Infectious Disease Are you exhibiting symptoms associated with any current EIDs: No - Review of Systems Constitutional: No Symptoms Ears, Nose, & Throat: No Symptoms Respiratory: No Symptoms Cardiac: No Symptoms Abdominal/Gastrointestinal: No Symptoms Musculoskeletal: No Symptoms Skin: Pruritis, Rash, Skin Lesions Neurological: No Symptoms Endocrine: No Symptoms Hematologic/Lymphatic: No Symptoms Immunological/Allergic: No Symptoms - Past Medical History Pertinent Past Medical History: Yes Neurological History: Seizures, Stroke, Other ENT History: No Pertinent History Cardiac History: No Pertinent History Respiratory History: Bronchitis, Other Endocrine Medical History: Other Musculoskeletal History: Fractures, Other GI Medical History: Hernia History: Other Psycho-Social History: Anxiety, Bipolar, Depression, Other Male Reproductive Disorders: No Pertinent History Other Medical History: hx of acute kidney failure, COVID-19 x1, R boxer's fxL wrist fx, L ankle fx, 2 cyst removals from forehead, scoliosis - Past Surgical History Past Surgical History: Yes Neuro Surgical History: No Pertinent History Cardiac: No Pertinent History Respiratory: No Pertinent History Gastrointestinal: No Pertinent History Genitourinary: No Pertinent History Musculoskeletal: No Pertinent History Male Surgical History: No Pertinent History Significant Family History: no pertinent family hx - Social History Smoking Status: Former smoker How long have you smoked: 22 yrs Exposure to second hand smoke: No Drug Use: none Patient Lives Alone: No - Social Determinants of Health Will the patient participate in the screening: Yes Do you worry about a steady place to live?: No In the past 12 months,have you had to go without utilities?: No Transportation Issues: No Has anyone in your support network made you feel unsafe?: No Have you or anyone in your house had to go without enough: No - Physical Exam General Appearance: no apparent distress, alert Eye Exam: PERRL/EOMI Ears, Nose, Throat Exam: normal ENT inspection Neck Exam: normal inspection, full range of motion Respiratory Exam: normal breath sounds, lungs clear Cardiovascular Exam: regular rate/rhythm, normal heart sounds Extremity Exam: normal range of motion Neurologic Exam: alert, oriented x 3, cooperative Skin Exam: rash SpO2 Interpretation: normal SpO2: 96 O2 Delivery: Room Air Ordered Tests: Medication Summary Discontinued Medications Generic Name Dose Route Start Last Admin Trade Name Shelia PRN Reason Stop Dose Admin Prednisone 60 mg 01/23/24 20:58 Prednisone 20 Mg Tablet PO 01/23/24 20:59 STAT ONE - Progress Progress: unchanged Progress Note: 01/23/24 21:03 38 years old presented in the ER with complaint of rash on the arms, scalp for almost over a week. Patient report he was in [place] before the rash started. He was evaluated at urgent care, got a steroid shot and has been applying calamine lotion with minimal relief. No difficulty breathing or swallowing. Reports increased itching especially in the forearms. Patient has linear streaks of red raised rash with few vesicles. Lungs clear to auscultation. No signs of distress. I believe patient needs short course of steroid and started on prednisone. Recommended continue with Benadryl and calamine. Outpatient follow-up recommended Counseled pt/family regarding: diagnosis, need for follow-up Medical Desision Making - Diagnostic Testing Diagnostic test were ordered, analyzed, and reviewed by me: No - Risk of complications The pt has a mod risk of morbidity or mortality based on: Need for prescription drug management - Departure Departure Disposition: Home Clinical Impression: Allergic dermatitis due to poison trish Condition: Stable Critical Care Time: No Referrals: SPENCER CUELLAR MD [Primary Care Provider] - Follow up with PCP 1 day Instructions: Poison [place]ish, Poison [place], Poison [place] ([place]) Additional Instructions: Continue with Benadryl and calamine as recommended. Follow-up with primary care for reevaluation. Return to ER for any worsening. Prescriptions: Methylprednisolone Packet [Medrol Dosepack] 4 mg PO UD #1 packet
[2024-01-23 21:15] VITALS: BP 103/74; PULSE 72; RESP 16
== END 2024-01-23 21:19 | disposition home or self-care (01) ==
LOC: ED 18:07
DX: L23.7 Allergic contact dermatitis due to plants, except food (principal); Z79.52 Long term (current) use of systemic steroids; Z79.899 Other long term (current) drug therapy
CPT/HCPCS: 99281; A9270-GY

== ENCOUNTER 2024-07-12 14:12 | Emergency (ER) | payer OTHER ==
[2024-07-12 16:06] VITALS: BP 107/82; PULSE 75; RESP 18; TEMP 97.4; O2SAT 98
--- NOTE | 2024-07-12 16:17 | ERPHSYRPT ---
- History of Present Illness Time Seen by Provider: 07/12/24 16:17 Source: patient Exam Limitations: no limitations Patient Subjective Stated Complaint: PT HERE FOR SWELLING TO RIGHT MIDDLE FINGER FOR A COUPLE DAYS. NO FEVER, NO INJURY Triage Nursing Assessment: PT ALERT, WALKED IN, RESP EASY, SKIN Neal HAS SWELLING TO RIGHT INDEX FNGER, HAS SCABED AREA TO TIP OF FINGER, NO DRAINAGE Physician History: This is a right handed 38-year-old white male patient of Dr. Cuellar who is concerned that he might have an infected right middle finger. He said mild burning pain and swelling to his right middle finger for approximately 2 days. He does not recall any specific injury. There is been no drainage and no fevers at home. 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 There is been no new injury or entrance of any foreign body per his report. Timing/Duration: day(s) (Present for a couple of days) Quality: burning Severity: mild Location: hands (Right hand middle finger) Possible Causes: no cause identified Associated Symptoms: denies symptoms Allergies/Adverse Reactions: naproxen [From Naprosyn] Adverse Reaction (Verified 07/12/24 16:03) kidneys shut down Home Medications: Gabapentin [Neurontin ] 2 cap PO TID 12/03/22 [History] Levetiracetam 250 MG [Keppra 250 MG] 500 mg PO BID 12/03/22 [History] Escitalopram Oxalate [Lexapro] 10 mg PO DAILY 07/12/24 [History] Hx Tetanus, Diphtheria Vaccination/Date Given: Yes (4 YEARS AGO) Hx Influenza Vaccination/Date Given: No Hx Pneumococcal Vaccination/Date Given: No Immunizations Up to Date: Yes Travel Risk - International Travel Have you traveled outside of the country in past 3 weeks: No - Emerging Infectious Disease Are you exhibiting symptoms associated with any current EIDs: No - Review of Systems Constitutional: No Symptoms Eyes: No Symptoms Ears, Nose, & Throat: No Symptoms Respiratory: No Symptoms Cardiac: No Symptoms Abdominal/Gastrointestinal: No Symptoms Genitourinary Symptoms: No Symptoms Musculoskeletal: No Symptoms Skin: Cellulitis (Mild right middle finger with swelling and redness) Neurological: No Symptoms Psychological: No Symptoms Endocrine: No Symptoms Hematologic/Lymphatic: No Symptoms Immunological/Allergic: No Symptoms All Other Systems: Reviewed and Negative - Past Medical History Pertinent Past Medical History: Yes Neurological History: Seizures, Stroke, Other ENT History: No Pertinent History Cardiac History: No Pertinent History Respiratory History: Bronchitis, Other Endocrine Medical History: Other Musculoskeletal History: Fractures, Other GI Medical History: Hernia History: Other Psycho-Social History: Anxiety, Bipolar, Depression, Other Male Reproductive Disorders: No Pertinent History Other Medical History: hx of acute kidney failure, COVID-19 x1, R boxer's fxL wrist fx, L ankle fx, 2 cyst removals from forehead, scoliosis - Past Surgical History Past Surgical History: Yes Neuro Surgical History: No Pertinent History Cardiac: No Pertinent History Respiratory: No Pertinent History Gastrointestinal: No Pertinent History Genitourinary: No Pertinent History Musculoskeletal: No Pertinent History Male Surgical History: No Pertinent History Significant Family History: no pertinent family hx - Social History Smoking Status: Never smoker How long have you smoked: 22 yrs Exposure to second hand smoke: No Drug Use: none Patient Lives Alone: No - Social Determinants of Health Will the patient participate in the screening: Yes Do you worry about a steady place to live?: No Do you have any problems with any of the following?: No known problems In the past 12 months,have you had to go without utilities?: No Transportation Issues: No Has anyone in your support network made you feel unsafe?: No Have you or anyone in your house had to go without enough: No - Nursing Vital Signs Nursing Vital Signs: Initial Vital Signs Temperature 97.4 F 07/12/24 16:05 Pulse Rate 75 07/12/24 16:05 Respiratory Rate 18 07/12/24 16:05 Blood Pressure 107/82 07/12/24 16:05 O2 Sat by Pulse Oximetry 98 07/12/24 16:05 Pain Scale Pain Intensity 0 - Physical Exam General Appearance: no apparent distress, alert Eye Exam: PERRL/EOMI, eyes nml inspection Ears, Nose, Throat Exam: normal ENT inspection, moist mucous membranes Neck Exam: normal inspection, non-tender, supple, full range of motion Respiratory Exam: airway intact, No chest tenderness, No respiratory distress Gastrointestinal/Abdomen Exam: No tenderness Rectal Exam: not done Back Exam: normal inspection, normal range of motion, No CVA tenderness, No vertebral tenderness Extremity Exam: normal range of motion, pelvis stable, inflammation (Right middle finger), swelling (Right middle finger), No deformities, No lacerations Neurologic Exam: alert, oriented x 3, cooperative, rn med surg II-XII nml as tested, normal mood/affect, nml cerebellar function, nml station & gait, sensation nml Skin Exam: dry (Bilateral hands with multiple cracks presents) Lymphatic Exam: No adenopathy SpO2 Interpretation: normal SpO2: 98 O2 Delivery: Room Air - Course Nursing assessment & vital signs reviewed: Yes - Progress Progress: unchanged Progress Note: 07/12/24 16:52 My medical decision making and the assignment of low complexity to this patient's medical issue today is based on review of the patient's past medical history, review the patient's medication list, reviewed patient drug allergy list, history present illness and physical findings on examination. No r adiographic or laboratory studies are necessary in the workup of this patient. Differential diagnosis includes but is not limited to cellulitis, dryness of hands Counseled pt/family regarding: diagnosis, need for follow-up Medical Desision Making - Diagnostic Testing Diagnostic test were ordered, analyzed, and reviewed by me: No - Risk of complications Minimal Risk: Minimal risk of morbidity - Departure Departure Disposition: Home Clinical Impression: Dry skin dermatitis, Cellulitis of finger of right hand Condition: Stable Critical Care Time: No Referrals: SPENCER CUELLAR MD [Primary Care Provider] - Follow up/PCP as directed Additional Instructions: Keep your hands moist with lotion 2-3 times a day. Take your antibiotics and steroids as prescribed. Call your primary care provider on 07/13/2024, to make arranges for follow-up appointment for further evaluation management. Prescriptions: Prednisone 10 mg [Deltasone 10 mg] 10 mg PO TID #12 tablet Cephalexin Mh 500 mg [Keflex 500 mg] 500 mg PO TID #15 cap
[2024-07-12] MEDS ORDERED: KEFLEX 500 MG ONE (17:06)
[2024-07-12] MEDS: KEFLEX 500 MG PO ONE (17:07)
== END 2024-07-12 17:34 | disposition home or self-care (01) ==
LOC: ED 14:12
DX: L03.011 Cellulitis of right finger (principal); L85.3 Xerosis cutis; Z79.52 Long term (current) use of systemic steroids; Z79.899 Other long term (current) drug therapy
CPT/HCPCS: 99281; 99283; A9270-GY

== ENCOUNTER 2025-03-01 17:15 | Emergency (ER) | payer OTHER ==
[2025-03-01 17:25] VITALS: RESP 18; TEMP 97.1
--- NOTE | 2025-03-01 18:49 | ERPHSYRPT ---
- History of Present Illness Time Seen by Provider: 03/01/25 18:35 Source: patient Exam Limitations: no limitations Patient Subjective Stated Complaint: pt here for pain to right great toe after hitting it on bed frame sat, Triage Nursing Assessment: pt alert, walked in, resp easy, skin w/d/p. has swelling and bruising to 5th toe, Timing/Duration: today Severity: mild Allergies/Adverse Reactions: naproxen [From Naprosyn] Adverse Reaction (Verified 03/01/25 17:22) kidneys shut down Home Medications: Gabapentin [Neurontin ] 2 cap PO TID 12/03/22 [History] Levetiracetam 250 MG [Keppra 250 MG] 500 mg PO BID 12/03/22 [History] Escitalopram Oxalate [Lexapro] 10 mg PO DAILY 07/12/24 [History] Hx Tetanus, Diphtheria Vaccination/Date Given: No Hx Influenza Vaccination/Date Given: No Hx Pneumococcal Vaccination/Date Given: No Immunizations Up to Date: Yes Travel Risk - International Travel Have you traveled outside of the country in past 3 weeks: No - Emerging Infectious Disease Are you exhibiting symptoms associated with any current EIDs: No - Review of Systems Constitutional: No Symptoms Eyes: No Symptoms Ears, Nose, & Throat: No Symptoms Respiratory: No Symptoms Cardiac: No Symptoms Abdominal/Gastrointestinal: No Symptoms Genitourinary Symptoms: No Symptoms Musculoskeletal: Joint Redness, Joint Pain Skin: No Symptoms Neurological: No Symptoms - Past Medical History Pertinent Past Medical History: Yes Neurological History: Seizures, Stroke, Other ENT History: No Pertinent History Cardiac History: No Pertinent History Respiratory History: Bronchitis, Other Endocrine Medical History: Other Musculoskeletal History: Fractures, Other GI Medical History: Hernia History: Other Psycho-Social History: Anxiety, Bipolar, Depression, Other Male Reproductive Disorders: No Pertinent History Other Medical History: hx of acute kidney failure, COVID-19 x1, R boxer's fxL wrist fx, L ankle fx, 2 cyst removals from forehead, scoliosis - Past Surgical History Past Surgical History: Yes Neuro Surgical History: No Pertinent History Cardiac: No Pertinent History Respiratory: No Pertinent History Gastrointestinal: No Pertinent History Genitourinary: No Pertinent History Musculoskeletal: No Pertinent History Male Surgical History: No Pertinent History Significant Family History: no pertinent family hx - Social History Smoking Status: Former smoker How long have you smoked: 22 yrs Exposure to second hand smoke: No Drug Use: none - Social Determinants of Health Will the patient participate in the screening: Yes Do you worry about a steady place to live?: No Do you have any problems with any of the following?: No known problems In the past 12 months,have you had to go without utilities?: No Transportation Issues: No Has anyone in your support network made you feel unsafe?: No Have you or anyone in your house had to go w/o enough food: No - Nursing Vital Signs Nursing Vital Signs: Initial Vital Signs Temperature 97.1 F 03/01/25 17:25 Pulse Rate 85 03/01/25 17:25 Respiratory Rate 18 03/01/25 17:25 Blood Pressure 126/81 03/01/25 17:25 O2 Sat by Pulse Oximetry 99 03/01/25 17:25 Pain Scale Pain Intensity 7 - Physical Exam General Appearance: no apparent distress Eye Exam: PERRL/EOMI Ears, Nose, Throat Exam: normal ENT inspection Neck Exam: normal inspection Respiratory Exam: normal breath sounds Cardiovascular Exam: regular rate/rhythm Gastrointestinal/Abdomen Exam: soft, normal bowel sounds Extremity Exam: swelling (mild soft tissue swelling noted over the right 5th toe patient has minimla tenderness) SpO2: 99 Ordered Tests: Active Orders 24 hr Category Date Time Status FOOT (MINIMUM 3 VIEWS) Stat Exams 03/01/25 17:23 Taken - Progress Progress Note: Patient was seen and evaluated for his complaints x-ray was obtained there is revealed very mild irregularity of the distal phalanx patient was informed of the need to follow-up with his primary care provider the toe will be cee taped he is to apply ice to the affected area and use Tylenol and Motrin as needed 03/01/25 18:47 - Departure Departure Disposition: Home Clinical Impression: Contusion of fifth toe of right foot Condition: Good Critical Care Time: No Referrals: SPENCER CUELLAR MD [Primary Care Provider, [facility]] - Follow up/PCP as directed
[2025-03-01 19:11] VITALS: BP 114/73; PULSE 78; O2SAT 98
--- NOTE | 2025-03-02 08:47 | XRAY ---
Indication: Pain and bruising following injury. Comparison: None 3 nonweightbearing views right foot obtained. No bony, articular, or soft tissue abnormalities.
== END 2025-03-01 19:10 | disposition home or self-care (01) ==
LOC: ED 17:15
DX: S90.121A Contusion of right lesser toe(s) without damage to nail, initial encounter (principal); W22.03XA Walked into furniture, initial encounter; Z79.899 Other long term (current) drug therapy